=== PATIENT | male | born 1955 | race Caucasian/White ===

== ENCOUNTER 2021-02-05 08:21 | Emergency (ER) | payer OTHER, MEDICARE, MEDICAID, SELFPAY ==
--- NOTE | ~2021-02-05 | XR_ITS ---
EXAMINATION: RIGHT WRIST. CLINICAL INFORMATION: Distal radial fracture. Postreduction. COMPARISON: None TECHNIQUE: 6 views FINDINGS: Slightly impacted and dorsally angulated distal radial fracture has been stabilized with right wrist in a hard cast. XR/XR hand wrist RT IMPRESSION: Stabilized distal radial fracture in a hard cast.
--- NOTE | ~2021-02-05 | XR_ITS ---
EXAMINATION: XR WRIST, RIGHT CLINICAL INFORMATION: Fall. Pain. COMPARISON: None TECHNIQUE: 4 views of the right wrist. FINDINGS: There is an acute comminuted transverse impacted fracture of the left distal radius. There is slight dorsal angulation seen on the lateral view. There is a vertical component that appears intra-articular with the radiocarpal joint. There is an old fracture of the base of the third metacarpal bone. No other fracture is seen. Joint spaces are otherwise normal. There is soft tissue swelling. XR/XR wrist RT 2V IMPRESSION: Right distal radius fracture.
--- NOTE | ~2021-02-05 | XR_ITS ---
EXAMINATION: XR CHEST CLINICAL INFORMATION: Medical clearance. COMPARISON: Chest 09/06/2017 TECHNIQUE: 2 views of the chest were obtained. FINDINGS: No significant abnormality is noted involving the heart, lungs, mediastinum, bony thorax or soft tissues. XR/XR chest 2V IMPRESSION: Unremarkable chest examination. No change from 08/25/2017
[2021-02-05 08:47] VITALS: BP 167/71; PULSE 82; RESP 16; TEMP 36.4; O2SAT 97; BMI 34.1
[2021-02-05] MEDS: Acetaminophen 325 MG TABLET 975 MG PO (10:09)
[2021-02-05] MEDS: oxyCODONE HCl Immed Release 5 MG TABLET PO (10:10)
--- NOTE | 2021-02-05 10:18 | ED.UPPEXIN ---
HPI - Extremity Injury (Upper) General Chief Complaint: Extremity Injury, Upper Stated Complaint: arm injury Time Seen by Provider: 02/05/21 09:08 Source: patient Mode of arrival: ambulatory Limitations: no limitations History of Present Illness HPI narrative: 65-year-old male with a past medical history of depression, fibromyalgia and COPD presenting to the ED with complaints of right wrist pain/swelling/decreased range of motion after he reports he fell approximately on Monday while he was outside lost his balance landing on his right hand/wrist and since then has been having pain. Denies head injury loss of consciousness or being on any blood thinners. Denies any other injuries complaints or concerns at this time. Denies any symptoms prior to the fall. complaint: injury to: right and wrist Onset (ago): day(s) (Five days ago) Other injuries: none Place: outdoors Severity: severe Severity scale (1-10): >10 Relieving factors: immobilization Exacerbating factors: movement of extremity Context: fall Associated symptoms: denies other symptoms Treatments prior to arrival: NSAIDS and other (Shoulder sling) Related Data Previous Rx's Medication Instructions Recorded acetaminophen [Tylenol Extra 1,000 mg PO QID PRN #14 tab 02/05/21 Strength] ibuprofen 800 mg PO Q8H PRN #14 tab 02/05/21 oxycodone 5 mg PO BID PRN #10 tab 02/05/21 Allergies Allergy/AdvReac Type Severity Reaction Status Date / Time No Known Allergies Allergy Unverified 06/04/20 14:36 Review of Systems Review of Systems: Constitutional : No changes in activity, No lethargy, No recent prior head injury, No agitation, No increased fussiness ENT/Mouth : No Ear Pain, No Nasal discharge/drainage Eyes: No Eye Pain, No Swelling, No Redness, No Foreign Body, No Vision Changes Cardiovascular : No Chest Pain, No SOB Respiratory : No Cough Gastrointestinal : No Nausea, No Vomiting, No abdominal Pain Genitourinary : No Dysuria, No Urinary Frequency, No Urinary Incontinence, No Urgency, No Flank Pain Musculoskeletal : + joint pain to left wrist, No neck stiffness, No back pain/injury Skin : No lacerations Neuro : No unsteady gait, No Paresthesias, No Loss of Consciousness, No altered mental status, No Headache Yes all other systems are reviewed and are negative PMFSH Past Medical History Attestation statement: The following information was validated with the patient. Medical History Fibromyalgia Social History Social History Advance Directives: No Advance Directives Information Provided: No Physical Exam Vital Signs: Vital Signs: Last Vital Signs Temp 97.5 F 02/05/21 08:47 Pulse 82 02/05/21 08:47 Resp 16 02/05/21 08:47 BP 167/71 H 02/05/21 08:47 Pulse Ox 97 02/05/21 08:47 Body Mass Index 34.1 vital signs have been reviewed as normal and appeared to be correct. Blood pressure 167/71. Heart rate normal. Respiration rate normal. Temperature normal. Oxygen saturation normal. Appearance: Alert. Oriented X3. No acute distress. Head: Normal external exam. Normocephalic. Atraumatic. Eyes: PERRLA. EOMI. Conjunctiva and sclera normal. Eyelids normal. ENT: Pharynx normal. Uvula midline. Moist mucous membranes. Neck: Normal inspection. Neck supple. FROM. No adenopathy. Thyroid Normal. No meningeal signs. No neck mass noted. CVS: Normal heart rate and rhythm. Heart sound normal. Pulses normal throughout. No murmurs/rales/gallops. Respiratory: No respiratory distress. Painless inspiration. Breath sounds normal. No wheezes/rales/rhonchi noted. Chest nontender. No accessory muscle usage noted or decreased air movement noted. Back: No CVA tenderness. Full range of motion noted. No rashes/lesion/induration/fluctuance or signs of infection noted. Skin: Skin warm and dry. Normal skin color. Normal skin turgor. No rashes/lesions/lacerations noted. Extremities: To right wrist patient has moderate tender to palpation to distal radius with obvious deformity with soft tissue swelling and ecchymosis noted. With limited range of motion. No laxity is noted. Otherwise all other Extremities exhibit normal range of motion and nontender. Neuro: Oriented X 3. No motor deficit. No sensory deficit. Reflexes normal. Normal steady gait. No focal neuro deficits noted. Vascular: + radial pulses. Normal cap refill. No cyanosis noted to upper extremity nails and lower extremity toes nails. Course Course Course Narrative: 13pm - Dr. Reddy came down and assisted with the reduction and repeat imaging reveals improvement. Therefore splint was placed. Will DC home with symptomatic treatment instructions to follow up by Monday with Orthopedics/Dr. Reddy. Patient understands agrees with this plan. Procedures Orthopedic Joint Reduction Joint #1: Time Out Performed: Yes Side: right Joint Reduction Location: wrist Analgesia: hematoma block Local Anesthesia: lidocaine 1% and with epi Amount of anesthesic used (mL): 10 Technique used: traction/counter-traction and direct manipulation Post-reduction neuro exam: intact Post-reduction vascular: intact Post Reduction X-Ray Obtained: Yes Post Reduction X-Ray Results: reduced Splint Applied: Yes Patient Tolerated Procedure: well and no complications Orthopedic Splinting/Casting Injury #1: Side: right Upper Extremity Injury Location: wrist Upper Extremity Immobilizer: sugar tong splint MDM - Extremity Injury (Upper) MDM Narrative Medical decision making narrative: 65-year-old male with a past medical history of depression, fibromyalgia and COPD presenting to the ED with complaints of right wrist pain/swelling/decreased range of motion after he reports he fell approximately on Monday while he was outside lost his balance landing on his right hand/wrist and since then has been having pain. - Plan: Xray, basic labs/chest x-ray. Provide 975 mg of Tylenol and 5 mg of oxycodone then consult with Orthopedics/Dr. Encarnacion for further recommendations. Patient understands agrees with this plan. Medical Records Attestation: I reviewed the patient's medical records. Lab Data Result diagrams: 02/05/21 11:41 02/05/21 11:41 Labs: Lab Results 02/05/21 02/05/21 02/05/21 Range/Units 11:41 11:41 11:41 WBC 8.6 (4.8-10.8) X10*3/uL RBC 3.78 L (4.60-5.80) X10*6/uL Hgb 11.7 L (14.0-18.0) g/dl Hct 36.3 L (42-52) % MCV 96.0 (80-98) fL MCH 31.0 (27.0-33.0) pg MCHC 32.2 (31.0-36.0) g/dl RDW 12.6 (11.0-16.0) % Plt Count 205 (160-400) X10*3/uL MPV 8.8 L (9.4-12.4) fL Immature Gran % (Auto) 0.1 (0.0-0.4) % Neut % (Auto) 68.5 (45-73) % Lymph % (Auto) 19.5 L (20-40) % [place] % (Auto) 7.6 (2-11) % Eos % (Auto) 4.0 (0-4) % Baso % (Auto) 0.3 (0-2) % Lymph # (Auto) 1.7 (1.2-4.9) X10*3/uL [place] # (Auto) 0.7 (0.1-1.2) X10*3/uL Eos # (Auto) 0.3 (0.0-0.4) X10*3/uL Baso # (Auto) 0.0 (0.0-0.2) X10*3/uL Abs Immat Gran (auto) 0.01 (0.00-0.03) X10*3/uL Absolute Neuts (auto) 5.9 (2.0-8.3) X10*3/uL Absolute Nucleated RBC 0.000 (0.0-0.012) X10*3/uL Nucleated RBC % (auto) 0.0 (0.0-0.2) /100WBC Hold Purple Top SEE NOTE PT 13.2 H (10.8-13.0) SEC INR 1.1 (0.9-1.1) Sodium (135-145) mmol/L Potassium (3.3-5.1) mmol/L Chloride (96-108) mmol/L Carbon Dioxide (22-29) mmol/L Anion Gap (12-20) BUN (9-16) mg/dL Creatinine (0.5-1.4) mg/dL Estim Creat Clear Calc Estimated GFR Random Glucose (60-115) mg/dL Calcium (8.4-10.2) mg/dL Magnesium (1.6-2.6) mg/dL Total Bilirubin (0.0-1.0) mg/dL AST (5-37) U/L ALT (0-40) U/L Alkaline Phosphatase (39-117) U/L Total Protein (6.5-8.0) g/dL Albumin (3.5-5.0) g/dL COVID-19 ([facility]) (Negative) COVID-19 Clin Com 02/05/21 02/05/21 Range/Units 11:41 11:41 WBC (4.8-10.8) X10*3/uL RBC (4.60-5.80) X10*6/uL Hgb (14.0-18.0) g/dl Hct (42-52) % MCV (80-98) fL MCH (27.0-33.0) pg MCHC (31.0-36.0) g/dl RDW (11.0-16.0) % Plt Count (160-400) X10*3/uL MPV (9.4-12.4) fL Immature Gran % (Auto) (0.0-0.4) % Neut % (Auto) (45-73) % Lymph % (Auto) (20-40) % [place] % (Auto) (2-11) % Eos % (Auto) (0-4) % Baso % (Auto) (0-2) % Lymph # (Auto) (1.2-4.9) X10*3/uL [place] # (Auto) (0.1-1.2) X10*3/uL Eos # (Auto) (0.0-0.4) X10*3/uL Baso # (Auto) (0.0-0.2) X10*3/uL Abs Immat Gran (auto) (0.00-0.03) X10*3/uL Absolute Neuts (auto) (2.0-8.3) X10*3/uL Absolute Nucleated RBC (0.0-0.012) X10*3/uL Nucleated RBC % (auto) (0.0-0.2) /100WBC Hold Purple Top PT (10.8-13.0) SEC INR (0.9-1.1) Sodium 141 (135-145) mmol/L Potassium 4.1 (3.3-5.1) mmol/L Chloride 105 (96-108) mmol/L Carbon Dioxide 30 H (22-29) mmol/L Anion Gap 10 L (12-20) BUN 14 (9-16) mg/dL Creatinine 0.91 (0.5-1.4) mg/dL Estim Creat Clear Calc 82.5 Estimated GFR > 60 Random Glucose 107 (60-115) mg/dL Calcium 9.1 (8.4-10.2) mg/dL Magnesium 2.1 (1.6-2.6) mg/dL Total Bilirubin 0.4 (0.0-1.0) mg/dL AST 16 (5-37) U/L ALT 13 (0-40) U/L Alkaline Phosphatase 45 (39-117) U/L Total Protein 6.2 L (6.5-8.0) g/dL Albumin 3.7 (3.5-5.0) g/dL COVID-19 ([facility]) Negative (Negative) COVID-19 Clin Com See Note Imaging Data Right wrist x-ray: Attestation: I personally reviewed and interpreted this imaging study as follows: Radiologist's impression: FINDINGS: There is an acute comminuted transverse impacted fracture of the left distal radius. There is slight dorsal angulation seen on the lateral view. There is a vertical component that appears intra-articular with the radiocarpal joint. There is an old fracture of the base of the third metacarpal bone. No other fracture is seen. Joint spaces are otherwise normal. There is soft tissue swelling. XR/XR wrist RT 2V IMPRESSION: Right distal radius fracture. Right wrist x-ray status post reduction: Attestation: I personally reviewed and interpreted this imaging study as follows: Radiologist's impression: FINDINGS: Slightly impacted and dorsally angulated distal radial fracture has been stabilized with right wrist in a hard cast. XR/XR hand wrist RT IMPRESSION: Stabilized distal radial fracture in a hard cast. ECG Data Attestation: I personally reviewed and interpreted this ECG as follows: ECG interpretation date: 02/05/21 ECG interpretation time: 10:15 Critical Care Time Critical Care Time Critical Care Time: Yes Total Critical Care Time: 60 Attestation: I personally attest to this time spent taking care of the patient Discharge Plan Discharge Clinical Impression: Fall, Distal radius fracture, right Patient Disposition: Home, Self-Care Instructions: Wrist Fracture in Adults (ED) Prescriptions: New acetaminophen [Tylenol Extra Strength] 500 mg tablet 1,000 mg PO QID PRN (Reason: fever or pain) Qty: 14 RF: 0 oxycodone 5 mg tablet 5 mg PO BID PRN (Reason: pain) Qty: 10 RF: 0 ibuprofen 800 mg tablet 800 mg PO Q8H PRN (Reason: pain) Qty: 14 RF: 0 Referrals: Williams Reddy MD [Physician] - 02/05/21 (Call today to make a follow-up appointment by Monday per Dr. Reddy) Print Language: Hebrew
--- NOTE | 2021-02-05 10:31 | ECG_ITS ---
Test Reason : MED CLEARANCE Blood Pressure : / mmHG Vent. Rate : 077 BPM Atrial Rate : 077 BPM P-R Int : 148 ms QRS Dur : 090 ms QT Int : 416 ms P-R-T Axes : 042 074 037 degrees QTc Int : 470 ms Normal sinus rhythm Normal ECG When compared with ECG of 18-MAR-2010 09:06, No significant change was found Referred By: Thuy Crawford Electronically Signed By:RAMILA DAY MD
[2021-02-05 11:46] LABS: MANUAL DIFF FLAG NO
[2021-02-05 11:47] LABS: Basophils Percent Auto 0.3 % (0-2); Eosinophils Absolute Auto 0.3 X10*3/uL (0.0-0.4); Hematocrit 36.3 % (42-52); Hemoglobin 11.7 g/dl (14.0-18.0); Imm Gran Abs Auto 0.01 X10*3/uL (0.00-0.03); Imm Gran Pct Auto 0.1 % (0.0-0.4); Lymphocytes Absolute Auto 1.7 X10*3/uL (1.2-4.9); Lymphocytes Percent Auto 19.5 % (20-40); Mean Corpuscular HGB Conc 32.2 g/dl (31.0-36.0); Mean Platelet Volume 8.8 fL (9.4-12.4); Monocytes Absolute Auto 0.7 X10*3/uL (0.1-1.2); Monocytes Percent Auto 7.6 % (2-11); Neutrophils Absolute Auto 5.9 X10*3/uL (2.0-8.3); Neutrophils Percent Auto 68.5 % (45-73); Platelet Count 205 X10*3/uL (160-400); Red Blood Count 3.78 X10*6/uL (4.60-5.80); Red Cell Distribution Width 12.6 % (11.0-16.0); White Blood Count 8.6 X10*3/uL (4.8-10.8)
[2021-02-05 11:52] LABS: INTERNATIONAL NORM RATIO 1.1 (0.9-1.1); Prothrombin Time 13.2 SEC (10.8-13.0)
[2021-02-05 12:08] LABS: COVID-19 Test Negative (Negative)
[2021-02-05 12:13] LABS: Alanine Aminotransferase 13 U/L (0-40); Albumin Level 3.7 g/dL (3.5-5.0); Alkaline Phosphatase 45 U/L (39-117); Anion Gap 10 (12-20); Aspartate Amino Transferase 16 U/L (5-37); Bilirubin Total 0.4 mg/dL (0.0-1.0); Blood Urea Nitrogen 14 mg/dL (9-16); Calcium 9.1 mg/dL (8.4-10.2); Carbon Dioxide 30 mmol/L (22-29); Chloride 105 mmol/L (96-108); Creatinine Clr Calc Pharmacy 82.5; Estimated Glomerular Filt Rate > 60; Glucose Random 107 mg/dL (60-115); Magnesium 2.1 mg/dL (1.6-2.6); Potassium 4.1 mmol/L (3.3-5.1); Sodium 141 mmol/L (135-145); Total Protein 6.2 g/dL (6.5-8.0)
== END 2021-02-05 13:18 | disposition home or self-care (01) ==
PROVIDERS: Physician Assistant Medical; Emergency Provider Internal Medicine; PCP Internal Medicine
DX: S52.501A Unspecified fracture of the lower end of right radius, initial encounter for closed fracture (principal); M25.531 Pain in right wrist; W01.0XXA Fall on same level from slipping, tripping and stumbling without subsequent striking against object, initial encounter; Y93.9 Activity, unspecified; Y92.410 Unspecified street and highway as the place of occurrence of the external cause; Y99.9 Unspecified external cause status; Z20.822 Contact with and (suspected) exposure to COVID-19
CPT/HCPCS: 25605; 29125; 36415; 71046; 73100; 73110; 73130; 80053; 83735; 85025; 85610; 87635; 93005; 99283; 99284

== ENCOUNTER 2021-02-16 08:08 | Outpatient (REF) | payer MEDICARE, MEDICAID, SELFPAY | END 2021-02-16 08:09 | disposition home or self-care (01) | LOC: HO.HOSX 08:08 | PROVIDERS: Visit Provider Physician Assistant | DX: Z13.89 Encounter for screening for other disorder (principal) ==

== ENCOUNTER 2021-02-22 08:44 | Outpatient (REF) | payer MEDICARE, MEDICAID, SELFPAY ==
--- NOTE | ~2021-02-22 | XR_ITS ---
EXAMINATION: XR HAND AND WRIST, RIGHT CLINICAL INFORMATION: Distal radial fracture. Follow-up. COMPARISON: Radiographs right hand and wrist 02/05/2021. TECHNIQUE: The right hand and wrist are imaged together in 3 large [id number] images for a total of 3 views. FINDINGS: There is distal radial fracture without significant change in alignment from prior exam of 02/05/2021. The distal fracture fragment is slightly displaced dorsally with dorsal angulation and impaction. There is slight positive ulnar variance. The distal ulnar and the carpal bones appear intact. No destructive process. XR/XR hand wrist RT IMPRESSION: Angulated impacted fracture distal radius without significant change in alignment from prior study of 02/05/2021.
== END 2021-02-22 08:45 | disposition home or self-care (01) ==
LOC: HO.HOSX 08:44
PROVIDERS: Visit Provider Physician Assistant
DX: M25.531 Pain in right wrist (principal); S52.501A Unspecified fracture of the lower end of right radius, initial encounter for closed fracture
CPT/HCPCS: 73110; 73130; 99202

== ENCOUNTER 2021-02-24 11:46 | Day surgery (SDC) | payer MEDICARE, MEDICAID, SELFPAY ==
--- NOTE | 2021-02-23 07:46 | P.CONAN_ITS ---
Documented by User: Migdalia Barrow 02/23/21 07:47 HPI - Anesthesia Eval Consult details Narrative: 65yo M for Right Radius Distal Fracture ORIF PMFSH Active Problems Active Problems: All Active Problems (Updated 02/22/21 @ 11:35 by Penelope Smart PA-C) Distal radius fracture, right (Acute) Wrist pain (Acute) Depression (Acute) COPD (chronic obstructive pulmonary disease) (Acute) Fibromyalgia (Acute) Past Medical History Medical History COPD (chronic obstructive pulmonary disease) Depression Fibromyalgia Surgical History Surgical History H/O right wrist surgery Social History Social History Patient Tobacco Use Status: Current everyday Tobacco user Tobacco use type: Smokeless Tobacco Smoked in Last 30 Days: Yes Use of substances other than those prescribed or required for medical reasons: No Are you DNR?: No Advance Directives: No Advance Directives Information Provided: Yes Recently lost weight without trying: No Current occupational status: [employer]) Allergies Allergy/AdvReac Type Severity Reaction Status Date / Time No Known Allergies Allergy Unverified 06/04/20 14:36 Home Medications Medication Instructions Recorded Confirmed Last Taken Type fluoxetine 40 mg capsule 40 mg PO DAILY 02/22/21 Unknown History methadone 10 mg/5 mL oral solution 10 mg PO DAILY 02/22/21 02/24/21 08:00 History quetiapine 100 mg tablet 100 mg PO DAILY 02/22/21 Unknown History Exam Exam Date and Time: February 23, 2021 0746 Narrative Narrative: EKG 01/2021 Vent. Rate : 077 BPM Atrial Rate : 077 BPM P-R Int : 148 ms QRS Dur : 090 ms QT Int : 416 ms P-R-T Axes : 042 074 037 degrees QTc Int : 470 ms Normal sinus rhythm Normal ECG When compared with ECG of 18-MAR-2010 09:06, No significant change was found Assessment and Plan Assessment Anesthesia Assessment: Chart Reviewed Documented by User: Shania Owens 02/24/21 12:08 PMFSH Past Medical History Medical History COPD (chronic obstructive pulmonary disease) Depression Fibromyalgia Surgical History Surgical History H/O right wrist surgery Social History Social History Patient Tobacco Use Status: Current everyday Tobacco user Tobacco use type: Smokeless Tobacco Smoked in Last 30 Days: Yes Use of substances other than those prescribed or required for medical reasons: No Are you DNR?: No Advance Directives: No Advance Directives Information Provided: Yes Recently lost weight without trying: No Current occupational status: [employer]) Allergies Allergy/AdvReac Type Severity Reaction Status Date / Time No Known Allergies Allergy Unverified 06/04/20 14:36 Home Medications Medication Instructions Recorded Confirmed Last Taken Type fluoxetine 40 mg capsule 40 mg PO DAILY 02/22/21 Unknown History methadone 10 mg/5 mL oral solution 10 mg PO DAILY 02/22/21 02/24/21 08:00 History quetiapine 100 mg tablet 100 mg PO DAILY 02/22/21 Unknown History Exam Airway Mallampati Class: II TM Dist: >3cm Neck ROM: Full Assessment and Plan Assessment Anesthesia Assessment: Anesthesia Plan Discussed, Smoking Cess. Discussed and Chart Reviewed Final Anesthetic Review NPO: Yes ASA Class: III Final Preanesthetic Review: No Changes in Pt Med Stat, Meds/Allgs Chart Reviewed, Consent Obtained/Reviewed and Anes Risks/Benef Reviewed Patient Risk: Intermediate Procedure Risk: Low Assessment/Block/Sedation in SS: Assess/Block/Sedation-SS Anesthetic Plan Anesthetic Plan: GA and Regional Block Disposition: Standard PACU
[2021-02-24] VITALS (8 sets, daily range): BP systolic 126–172; BP diastolic 72–94; PULSE 71–90; RESP 16; TEMP 36.1–36.7; O2SAT 91–98; BMI 34.1; BMI 36.6
--- NOTE | ~2021-02-24 | FL_ITS ---
EXAMINATION: XR FLUOROSCOPY WITH IMAGES CLINICAL INFORMATION: Right wrist fracture COMPARISON: Right wrist 02/22/2021 TECHNIQUE: Fluoroscopy performed by Dr. Williams Reddy. Fluoroscopy time: 0.6 minutes DAP: 0.0184 mGycm2 Images: 2 FINDINGS: There is volar metallic plate and screws stabilizing distal radial fracture in alignment. No other fractures seen. Rest of the right wrist is unremarkable. FL/FL guidance in OR IMPRESSION: Normal alignment of distal radial fracture status post stabilization with volar metallic plate and screws.
--- NOTE | 2021-02-24 12:01 | MHC.SHP ---
Pre-Procedural Eval Section A The patient is an INPATIENT: No Changes since office visit: Yes Patient answered all questions; No Cold of Flu in the past 2 weeks, No New Medical Problems and No Changes in Medication The History & Physical has been completed within 30 days and I have reviewed it.: Yes Section B Chief Complaint: fx of the lower right radius Allergies: Allergies Allergy/AdvReac Type Severity Reaction Status Date / Time No Known Allergies Allergy Unverified 06/04/20 14:36 Plan I have reviewed the history and physical and performed a pertinent physical examination on my patient. No changes have occurred unless specified.
[2021-02-24] MEDS: Lactated Ringers 1,000 ML 100 ML IVCONT (12:17)
--- NOTE | 2021-02-24 13:31 | P.BOP_ITS ---
Brief Operative Note Date of Service: 02/24/21 Pre-op diagnosis: right distal radius fracture Procedure: ORIF right distal radius Implants: [place] Surgeon: Williams Reddy MD Anesthesia: GETA and regional Was an Felting Machine Operator Helper used for this Procedure?: Yes Felting Machine Operator Helper: Penelope Smart Estimated blood loss (mL): 10 Tourniquet time (min): 40 IV fluids (mL): 1,000 Pathology: none sent Condition: stable Disposition: PACU
--- NOTE | 2021-03-04 09:35 | P.OP_ITS ---
Operative Note Operative Note Date of Service: 02/24/21 Narrative: Pre-op diagnosis: right distal radius fracture Procedure: ORIF right distal radius Implants: [place] Surgeon: Williams Reddy MD Anesthesia: GETA and regional Was an Emergency Planning And Response Manager used for this Procedure?: Yes Emergency Planning And Response Manager: Penelope Smart Estimated blood loss (mL): 10 Tourniquet time (min): 40 IV fluids (mL): 1,000 Pathology: none sent Condition: stable Disposition: PACU The patient was brought to the operating room and placed supine on the hand table. The limb was prepped and draped in standard fashion and a time-out was called to identify proper site procedure proper surgeon. IV antibiotics per weight were administered. I began by exsanguinating the limb and insufflating the tourniquet to 250 mm Hg. I then made a standard incision over the FCR. FCR sheath was incised and the FCR was retracted ulnar. A ric incision was made in the FPL sheath and this was opened up proximally and distally. The FPL was swept aside revealing the pronator quadratus which waselevated off the distal radius revealing the displaced distal radius fracture. I used a [place] and rongeur to remove the callous and debris and reduce the fracture. A 0.54 K-wire was placed through the radial styloid into the radial shaft to provisionally maintain the reduction. A [place] distal radius plate was selected and placed on the distal radius. Fluoroscopic images were taken to confirm appropriate alignment on the AP and lateral projection. Once I was happy with this the radial styloid screw and the distal row were placed using standard AO technique. I then filled the proximal row with locking screws again confirming fracture reduction and hardware position using biplanar fluoroscopy. Once this was done I placed 2 proximal nonlocking screws through the cortical shaft reducing the plate to the bone and reapproximating the anatomic tilt of the distal radius on the lateral projection. Again once I was satisfied with the position of the plate and the fracture alignment all instrumentation was removed. The DRUJ was assessed and found to be stable and a layered closure was performed with absorbable suture and skin glue. Sterile dressings were applied. Patient was placed into a well- padded volar splint. Patient was extubated brought to recovery room in stable condition there were no known complications.
== END 2021-02-24 15:24 | disposition home or self-care (01) ==
LOC: HO.SSS 11:47
PROVIDERS: PCP Internal Medicine; Visit Provider Orthopaedic Surgery
PROC: (CPT 25607; principal; 2021-02-24 12:20)
DX: S52.501A Unspecified fracture of the lower end of right radius, initial encounter for closed fracture (principal); W18.30XA Fall on same level, unspecified, initial encounter; Y93.9 Activity, unspecified; Y92.89 Other specified places as the place of occurrence of the external cause; Y99.9 Unspecified external cause status
CPT/HCPCS: 25607; C1713; J0690; J1100; J2250; J2405; J3010

== ENCOUNTER 2021-03-08 07:26 | Outpatient (REF) | payer MEDICARE, MEDICAID, SELFPAY ==
--- NOTE | ~2021-03-08 | XR_ITS ---
EXAMINATION: XR WRIST, RIGHT CLINICAL INFORMATION: Fracture COMPARISON: Previous x-rays most recent intraoperative fluoroscopy images 02/24/2021 TECHNIQUE: PA, lateral, and oblique views of the right wrist. FINDINGS: There is a plate and screws transfixing the right comminuted intra-articular distal radius fracture. Orthopedic hardware appears unchanged. Bone alignment appears unchanged. There is diffuse soft tissue swelling. XR/XR wrist RT min 3V IMPRESSION: ORIF of right distal radius fracture.
== END 2021-03-08 07:27 | disposition home or self-care (01) ==
LOC: HO.HOSX 07:26
PROVIDERS: Visit Provider Physician Assistant
DX: S52.501A Unspecified fracture of the lower end of right radius, initial encounter for closed fracture (principal); F17.200 Nicotine dependence, unspecified, uncomplicated; X58.XXXA Exposure to other specified factors, initial encounter; Y93.9 Activity, unspecified; Y92.9 Unspecified place or not applicable; Y99.9 Unspecified external cause status
CPT/HCPCS: 73110; 99212

== ENCOUNTER 2021-04-14 11:28 | Outpatient (RCR) | payer MEDICARE, MEDICAID, SELFPAY ==
--- NOTE | 2021-04-14 13:14 | MHC.OT.OEV ---
[address] [phone] F: [phone] Occupational Therapy Evaluation Diagnosis: R DISTAL RADIUS FRACTURE Date of Onset: 02/01/21 Date of Surgery: 02/24/21 Attending Provider: Penelope Smart Prescribed Treatment: EVAL AND TREAT History of Current Condition: FELL BACKWARDS WHILE ATTEMPTING TO GET UP FROM SITTING ON A CURB. S/P ORIF WITH DR RIVERO 02/24/21 XRAY PERFORMED IN [facility] 02/05/21 acute comminuted transverse impacted fracture of the left distal radius. There is slight dorsal angulation seen on the lateral view. There is a vertical component that appears intra-articular with the radiocarpal joint. There is an old fracture of the base of the third metacarpal bone. 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 HOBBIES: PLAY MUSIC GUITAR AND PIANO, FISHING Living Situation, Family and/or Social Support: LIVES WITH SPOUSE Current Level of Function and Occupation Self Care, Employment, Leisure: DIFFICULTIES WITH PULLING UP PANTS, PULLING ON SHIRT, GRABBING ITEMS, HOLDING BAGS AND PLAYING GUITAR Sleep: OCCASIONAL INTERRUPTIONS DUE TO PAIN; WEARING SPLINT AT NIGHT Driving: NOT CURRENTLY DRIVING Pain Assessment Pain Score: 3-8/10 Pain Scale Used: Numeric (0 - 10) Pain Location and Description: 3/10 AT REST 8/10 WITH USE PAIN GREATEST IN R THUMB AND RADIAL/ULNAR WRIST Aggravating Factors: REACHING AND GRABBING, MOVING THUMB Alleviating Factors: IBUPROFEN, MASSAGE, HEAT Skin and Soft Tissue Assessment Skin and Soft Tissue: Atrophy Swelling Scar Tissue Comments: CIRCUMFERENCE OF WRIST, DISTAL TO U.S. : RIGHT 19.9 CM, LEFT 19.2 CM MILD ATROPHY TO R THENAR EMINENCE SCAR TO R VOLAR WRIST Nerve assessment Ulnar Nerve: Median Nerve: Radial Nerve: Comments: Sensory Assessment Temperature: Light Touch: WFL Proprioception: Vibration: Comments: DENIES PARASTHESIA Edema Assessment Upper Extremity: Right Impaired Lower Extremity: Comments: SEE ABOVE Dexterity Assessment Dexterity: WFL Comments: FUNCTIONAL DEXTERITY TEST: RIGHT 27 SECONDS, LEFT 25 SECONDS Special Tests Comments: AROM(PROM) Strength Elbow Flexion: Extension: Pronation: R 85 / L 90 Supination: R 55 / L 62 Comments: Flexion: Extension: Pronation: Supination: Comments: Wrist Flexion: R 43/ L 55 Extension: R 36 / L 60 Ulnar Deviation: R 10 / L 10 Radial Deviation: R 25 / L 40 Comments: Flexion: Extension: Ulnar Deviation: Radial Deviation: Comments: Thumb Thumb CMC Flexion: Thumb MCP Flexion: Thumb IP Flexion: Radial Abduction: Palmar Abduction: [place] (Kapandji 0-10): 7 Comments: Digits Index MCP: PIP: DIP: Long MCP: PIP: DIP: Ring MCP: PIP: DIP: Small MCP: PIP: DIP: Comments: Gross Grasp: R 25, L 60 Lateral Pinch: R 12, L 15 Two-Point Pinch: R 3, L 9 Three-Jaw Darshan: R 4, L 15 Comments: PAIN WITH THREE JAW DARSHAN PINCH Patient Education Primary Language: Mongolian 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 Patient demonstrates Patient verbalizes Barriers to Learning: None Readiness for Learning: Accepting Who was educated? Patient Comments: Plan of Care Assessment: AMY IS 7 WEEKS POST OP ORIF R WRIST SECONDARY TO DISTAL RADIUS FRACTURE TO DOMINANT RUE. HE STATES THAT HE HAS PAIN IN HIS RIGHT THUMB WITH GRABBING AND HOLDING ITEMS, INCLUDING PULLING UP HIS PANTS. HE REPORTS MOSTLY WEANING SELF FROM PRE-ALEAH SPLINT. HE STATES A 55% LIMITATION PER THE QUICK DASH ASSESSMENT. HE WOULD CONTINUE TO BENEFIT FROM SKILLED OT TO ACHIEVE OPTIMAL FUNCTIONAL LEVEL AND ADDRESS AREAS MENTIONED ABOVE. STG Duration: 2 WEEKS Short Term Goals: IND HEP IND SCAR MOBILIZATION IND JOINT PROTECTION AND ACTIVITY MODIFICATION REPORT <2/10 PAIN AT REST AND WITH LIGHT IADLs KAPANDJI TO 9 LTG Duration: 5 WEEKS Snf Goals: R CLINICAL RESEARCH SCIENTIST >50 POUNDS QUICK DASH <40% R WRIST FLEX AND EXT 55/50 3 PT PINCH >8 POUNDS REPORT <5/10 PAIN WITH MODERATE IADLs INCLUDING LIFTING >15 POUNDS Frequency and Duration: The patient will be seen 2X/WEEK FOR 5 WEEKS Treatment Plan: Therapeutic Exercise Therapeutic Activity Home Exercise Program Splinting Neuro Re-ed Patient Education Desensitization/Sensory Re-ed Edema Control ADL Training Ultrasound NMES Iontophoresis Paraffin Fluidotherapy MHP Cold Packs Joint Mobilization Soft Tissue Mobilization Kinesiotaping Other (see comments) Electronically Signed By: NASIM ROOT OTR/L Reviewed/agree with student documentation: N/A Therapist: Please sign and return to therapist, Thank you for your referral.
--- NOTE | 2021-05-12 08:09 | MHC.OT.DC ---
[address] [phone] F: [phone] Occupational Therapy Discharge Note Provider: Penelope Smart Diagnosis: L DISTAL RADIUS FRACTURE Date of Surgery: 02/24/21 Date of Evaluation: 04/14/21 Date of Discharge: 05/12/21 Treatments to Date: 1 Cancellations to Date: 1 Discharge Status: Patient Elected to Stop Recommend MD Follow-up Discharge Summary: MR DIAS WAS SEEN FOR AN OCCUPATIONAL THERAPY EVAL. HE EXPRESSED DIFFICULTIES WITH TRANSPORTATION AT DAY OF EVAL, ALTHOUGH HE WAS AGREEABLE TO TRY 2X/WEEK TO OPTIMIZE GAINS. UPON CALLING PATIENT, HE HAS ELECTED TO DISCONTINUE OT SERVICES AT THIS TIME. Electronically Signed By: NASIM ROOT OTR/Mely Reviewed/agree with student documentation: N/A Therapist: Please Sign and return to therapist, thank you for your referral.
== END 2021-05-12 08:00 | disposition home or self-care (01) ==
LOC: HO.OT 11:28
PROVIDERS: PCP Internal Medicine; Visit Provider Physician Assistant
DX: S52.501D Unspecified fracture of the lower end of right radius, subsequent encounter for closed fracture with routine healing (principal)
CPT/HCPCS: 97110; 97166

== ENCOUNTER 2024-10-30 13:15 | Inpatient (IN) | payer MEDICARE, MEDICAID, SELFPAY ==
[2024-10-30] VITALS (9 sets, daily range): BP systolic 154–200; BP diastolic 78–103; PULSE 69–95; RESP 16–20; TEMP 36.6–36.9; O2SAT 94–99; BMI 42.5; BMI 43.2
--- NOTE | ~2024-10-30 | CT_ITS ---
Please refer to combined report with the CT angiogram abdomen and pelvis performed concurrently. Electronically signed by: Marco A Lazar MD 10/31/2024 08:16 AM [facility]
--- NOTE | ~2024-10-30 | US_ITS ---
EXAMINATION: US TRIPLEX LOWER EXTREMITY, BILATERAL CLINICAL INFORMATION: Pain and swelling. COMPARISON: None available. TECHNIQUE: Color-flow triplex imaging with spectral analysis and compression Doppler were performed on the bilateral lower extremities. FINDINGS: RIGHT LEG: Respiratory variation, normal compression and augmented flow are noted throughout the bilateral lower extremities. The visualized common femoral vein, superficial femoral vein, profunda femoral vein, popliteal vein and midcalf peroneal and posterior tibial venous segments show no evidence of deep venous thrombosis bilaterally. There is no Bautista's cyst. LEFT LEG There is noncompressible thrombus present in the left common femoral vein, superficial femoral vein, extending into the popliteal vein and probably in the calf veins as well, which are not visualized. There is no Bautista's cyst. US/US venous duplex LE BI IMPRESSION: 1. Positive DVT LEFT leg. (Extensive) 2. No evidence of DVT RIGHT leg. Electronically signed by: Marco A Lazar MD 10/30/2024 03:56 PM [facility]
--- NOTE | ~2024-10-30 | CT_ITS ---
CLINICAL HISTORY: extensive clots leg swelling CT angiogram of the chest, abdomen and pelvis. Coronal MIPS were obtained. No comparison. Findings: There is mild motion artifact. No PE is identified. No aortic dissection or aneurysm is seen. There is prominent coronary artery calcification. There are several enlarged mediastinal and right hilar lymph nodes. The largest measures 3.4 x 2.7 cm image 137. No pleural or pericardial effusion. There are changes of emphysema. Peripherally in the right upper lobe there is an irregular parenchymal opacity measuring a maximum of proximally 3.3 cm. This is indeterminate. There are mild scattered reticular and ill-defined airspace opacities in the lungs, primarily in the lower lungs. Findings are indeterminate. There is mild scarring in the left lower lung. The liver is mildly lobulated. The gallbladder is unremarkable. No hydronephrosis. 1.4 cm left adrenal nodule is consistent with an adenoma. The spleen is unremarkable. There is pancreatic atrophy. There is a high-grade narrowing at the bifurcation of the abdominal aorta due to focal densely calcified plaque. No diverticulitis is identified. Normal appendix. No bowel obstruction. There is a small fat containing umbilical hernia. The bladder is unremarkable. No free fluid is seen in the pelvis. Impression: No PE is identified. Indeterminate mediastinal and right hilar adenopathy, neoplasm should be excluded. Irregular parenchymal opacity in the right upper lung is indeterminate. Neoplasm should be excluded. Mild scattered reticular and ill-defined airspace opacities in the lungs of unknown chronicity are indeterminate. Consider comparison to previous or follow-up to exclude an active process. Additional findings as above. This document has been electronically signed by: Ronny Magana MD on 10/30/2024 18:20:33
--- NOTE | 2024-10-30 13:40 | ECG_ITS ---
Test Reason : SOB Blood Pressure : */* mmHG Vent. Rate : 68 BPM Atrial Rate : 68 BPM P-R Int : 162 ms QRS Dur : 88 ms QT Int : 416 ms P-R-T Axes : 30 72 42 degrees QTcB Int : 442 ms Normal sinus rhythm Normal ECG When compared with ECG of 05-Feb-2021 11:33, No significant change was found Referred By: Shelley Rincon Electronically Signed By: RAMILA DAY MD
[2024-10-30] MEDS: Furosemide 40 MG/4 ML VIAL IVPUSH (14:35)
--- NOTE | 2024-10-30 14:37 | ED_ITS ---
HPI - SOB/Dyspnea General Chief Complaint: Dyspnea Stated Complaint: SOB,LEG EDEMA PER EMS Time Seen by Provider: 10/30/24 13:22 Source: patient Limitations: no limitations History of Present Illness ED Provider: ELVIS KU Narrative: 69 yo male with PMH of COPD not on home O2, HTN, fibromyalgia who comes in with c/o 1 month weight gain, leg edema, shortness of breath with exertion. Denies any preceding illness/chest pain event. He notes it just keeps gettting worse. He baseline sits up sleeping on a couch so he cannot tell about laying flat. He denies cough, fevers, sputum. He uses 5 nips a night to sleep so he was worred about his liver. He has never been on a diuretic and has no hx of CHF MD elicited complaint: shortness of breath Pertinent past history: COPD Onset (ago): month(s) (1) Context: occurred during exertion Timing: intermittent Severity: moderate Exacerbating factors: exertion Relieving factors: rest Known history of: COPD Associated symptoms: other (weight gain and leg swelling) Treatment prior to arrival: none Related Data Home Medications ?Medication ?Instructions ?Recorded ?Confirmed fluoxetine 40 mg capsule 40 mg PO DAILY 02/22/21 methadone 10 mg/5 mL oral solution 10 mg PO DAILY 02/22/21 quetiapine 100 mg tablet (Seroquel) 100 mg PO DAILY 02/22/21 Previous Rx's ?Medication ?Instructions ?Recorded acetaminophen 500 mg tablet 1,000 mg (2 x 500 mg) PO QID PRN 02/05/21 (Tylenol Extra Strength) fever or pain #14 tabs ibuprofen 800 mg tablet 800 mg PO Q8H PRN pain #14 tabs 02/05/21 oxycodone 5 mg tablet 5 mg PO BID PRN pain #10 tabs 02/05/21 oxycodone 10 mg tablet,crush 10 mg PO Q12H pain 3 days #6 tabs 02/24/21 resistant,extended release 12 hr (OxyContin) oxycodone-acetaminophen 10 mg-325 1 tab PO Q8H PRN pain (scale score 03/09/21 mg tablet 4-6) 7 days #21 tabs Allergies Allergy/AdvReac Type Severity Reaction Status Date / Time No Known Allergies Allergy Verified 10/30/24 13:55 Review of Systems 2 Review of Systems: Constitutional : No Fever, No Chills ENT/Mouth : No sore throat, No Rhinorrhea, No Swallowing Difficulty Eyes: No Eye Pain, No Swelling, No Redness Cardiovascular : No Chest Pain, positive SOB, No Orthopnea, positive Edema Respiratory : No Cough, No Sputum, No Wheezing, positive dyspnea Gastrointestinal : No Nausea, No Vomiting, No Diarrhea, No abdominal Pain, No Hematochezia, No Melena Genitourinary : No Dysuria, No Urinary Frequency, No Hematuria Musculoskeletal : No joint pain, No Myalgias Skin : No Skin Lesions, No rash Neuro : No Weakness, No Numbness, No Dizziness, No Headache All other systems reviewed and are negative PMFSH Past Medical History Attestation statement: The following information was validated with the patient. Source: old records reviewed Medical History Depression COPD (chronic obstructive pulmonary disease) Fibromyalgia Surgical History H/O right wrist surgery Social History Social History Alcohol intake: current Alcohol intake frequency: 3 or more drinks per day Patient Tobacco Use Status: Current everyday Tobacco user Tobacco use type: Smokeless Tobacco Substance Use Type: Marijuana Current occupational status: retired Physical Exam 2 Vital Signs: Vital Signs: Last Vital Signs Temp 97.8 F 10/30/24 17:20 Pulse 76 10/30/24 17:20 Resp 20 10/30/24 17:20 BP 200/103 H 10/30/24 17:20 Pulse Ox 96 10/30/24 17:20 O2 Del Method Room Air 10/30/24 17:20 BMI result Body Mass Index 43.2 Appearance: Alert. Oriented X3. No acute distress. Eyes: Pupils equal, round and reactive to light. ENT: Pharynx normal. Neck: Normal inspection. Neck supple. CVS: Normal heart rate and rhythm. Pulses normal. Respiratory: No respiratory distress. Breath sounds rales in both bases Abdomen: Soft and nontender. Skin: Skin warm and dry. Normal skin color. Normal skin turgor. Extremities: 3+ bilateral pitting lower extremity edema. No calf ttp Neuro: Oriented X 3. No motor deficit. No sensory deficit. CN2-12 intact Course Course Course Narrative: NPO at midnight Colette Weiss aware of lung mass Medications Administered Discontinued Medications Generic Name Dose Route Start Last Admin Trade Name Harlan PRN Reason Stop Dose Admin Furosemide 40 mg 10/30/24 14:06 10/30/24 14:35 Furosemide 40 Mg/4 Ml Vial IVPUSH 10/30/24 14:07 40 mg STAT STA Administration Protocol Iohexol 100 ml 10/30/24 17:03 10/30/24 17:03 Iohexol 350 Mg/Ml 100 Ml Infus..Btl IV 10/30/24 17:04 85 ml ONCE ONE Administration Medical Decision Making Medical Decision Making [facility] Narrative: 69 yo male with PMH of COPD not on home O2, HTN, fibromyalgia who presents with 3+pitting edema, rales on exam no hx of CHF will obtain basic labs, BNP, troponin, EKG, DVT study of both legs - check liver/renal/thyroid. Start on IV lasix as well. Possible admit for diuresis and he needs VTE work up of legs - no contraindications to anti coagulation discussed clot with patient he is a heavy smoker could also be lung CA or mass causing hypercoagulability - he has no hx of DVT/VTE Differential Diagnosis Differential Diagnoses: The differential diagnosis associated with the presentation includes CHF, lyte abnormality, renal issue, liver pathology, DVT - possible PE given dyspnea Admission/Observation Consideration of admission/observation: Escalation of care including admission/observation considered admit for clot retrieval Consult Healthcare Provider Management of the patient was discussed with: Hospitalist (will admit) and Base Manager Dr. Weiss - heparin and further eval of chest/abdomen/pelvis angio clot retrieval Lab Data [facility] Lab Attestation statement: I reviewed the patient's lab results. 10/30/24 15:08 10/30/24 15:08 Labs: Lab Results 10/30/24 10/30/24 10/30/24 Range/Units 15:08 15:10 18:03 WBC 9.5 (4.8-10.8) X10*3/uL RBC 4.56 L (4.60-5.80) X10*6/uL Hgb 14.7 (14.0-18.0) g/dl Hct 44.4 (42.0-52.0) % MCV 97.4 (80.0-98.0) fL MCH 32.2 (27.0-33.0) pg MCHC 33.1 (31.0-36.0) g/dl RDW 12.7 (11.0-16.0) % Plt Count 180 (160-400) X10*3/uL MPV 8.8 L (9.4-12.4) fL Immature Gran % (Auto) 0.3 (0.0-0.4) % Neut % (Auto) 72.1 (45-73) % Lymph % (Auto) 17.1 L (20-40) % [place] % (Auto) 8.3 (2-11) % Eos % (Auto) 1.8 (0-4) % Baso % (Auto) 0.4 (0-2) % Lymph # (Auto) 1.6 (1.2-4.9) X10*3/uL [place] # (Auto) 0.8 (0.1-1.2) X10*3/uL Eos # (Auto) 0.2 (0.0-0.4) X10*3/uL Baso # (Auto) 0.0 (0.0-0.2) X10*3/uL Abs Immat Gran (auto) 0.03 (0.00-0.03) X10*3/uL Absolute Neuts (auto) 6.9 (2.0-8.3) x10*3/uL Absolute Nucleated RBC 0.000 (0.0-0.012) X10*3/uL Nucleated RBC % (auto) 0.0 (0.0-0.2) /100WBC PT 12.3 (10.9-12.4) SEC INR 1.1 (0.9-1.1) aPTT Heparin Protocol Cancelled 30.7 L Sodium 140 (135-145) mmol/L Potassium 3.8 (3.3-5.1) mmol/L Chloride 107 (96-108) mmol/L Carbon Dioxide 27 (22-29) mmol/L Anion Gap 10 L (12-20) BUN 11 (9-16) mg/dL Creatinine 0.76 (0.5-1.4) mg/dL Estim Creat Clear Calc 97.9 Estimated GFR > 60 Random Glucose 141 H (60-115) mg/dL Calcium 8.9 (8.4-10.2) mg/dL Magnesium 2.0 (1.6-2.6) mg/dL Total Bilirubin 0.6 (0.0-1.0) mg/dL Direct Bilirubin 0.2 (0.0-0.5) mg/dL AST 26 (5-37) U/L ALT 12 (0-40) U/L Alkaline Phosphatase 48 (39-117) U/L Troponin I High Sens 3.8 (<3.5-35.0) ng/L B-Natriuretic Peptide 34 (<100) pg/mL Total Protein 7.5 (6.5-8.0) g/dL Albumin 3.8 (3.5-5.0) g/dL Lipase 9 (8-78) U/L TSH 1.30 (0.32-4.0) uIU/mL Urine Color Yellow Urine Appearance Clear Urine pH 6.5 (5.0-9.0) Ur Specific [place] 1.015 (1.005-1.025) Urine Protein 30 (1+) H (Neg-Trace) mg/dL Urine Glucose (UA) Negative (Negative) mg/dL Urine Ketones Negative (Negative) mg/dL Urine Blood Negative (Negative) Urine Nitrite Negative (Negative) Ur Leukocyte Esterase Negative (Negative) Urine RBC 0-2 (0-2) /HPF Urine WBC 0-5 (0-5) /HPF Ur Squamous Epith Cells 0-2 (0-2) /HPF Urine Bacteria None Seen (None Seen) Hyaline Casts 0-2 (0-2) /LPF Influenza Type A (PCR) NEGATIVE (Negative) Influenza Type B (PCR) NEGATIVE (Negative) RSV RNA Qual (PCR) NEGATIVE (Negative) SARS-CoV-2 RNA (RT-PCR) NEGATIVE (Negative) Independent Interpretation I performed an independent interpretation of an: EKG and CT Scan (mass/adenopathy no VTE) Interpretation: Rate: 68 Rhythm: NSR [place]: normal Normal P waves. Normal AZEB. Normal QRS complex. ST T wave : normal no XU qTC: 442 prior studies: no acute ischemia The study has been interpreted contemporaneously by me. . Radiology Impression Discussion of test interpretation with radiology: I have reviewed the radiologist's reading. External Record Review External record reviewed: Outpatient record Discharge Plan Discharge Clinical Impression: DVT (deep venous thrombosis), Mass of right lung Patient Disposition: Admitted As Inpatient Print Language: Maori
[2024-10-30 15:19] LABS: MANUAL DIFF FLAG NO
[2024-10-30 15:21] LABS: Basophils Percent Auto 0.4 % (0-2); Eosinophils Absolute Auto 0.2 X10*3/uL (0.0-0.4); Eosinophils Percent Auto 1.8 % (0-4); Hematocrit 44.4 % (42.0-52.0); Hemoglobin 14.7 g/dl (14.0-18.0); Imm Gran Abs Auto 0.03 X10*3/uL (0.00-0.03); Imm Gran Pct Auto 0.3 % (0.0-0.4); Lymphocytes Absolute Auto 1.6 X10*3/uL (1.2-4.9); Lymphocytes Percent Auto 17.1 % (20-40); Mean Corpuscular HGB Conc 33.1 g/dl (31.0-36.0); Mean Corpuscular Hemoglobin 32.2 pg (27.0-33.0); Mean Corpuscular Volume 97.4 fL (80.0-98.0); Mean Platelet Volume 8.8 fL (9.4-12.4); Monocytes Absolute Auto 0.8 X10*3/uL (0.1-1.2); Monocytes Percent Auto 8.3 % (2-11); Neutrophils Absolute Auto 6.9 x10*3/uL (2.0-8.3); Neutrophils Percent Auto 72.1 % (45-73); Platelet Count 180 X10*3/uL (160-400); Red Blood Count 4.56 X10*6/uL (4.60-5.80); Red Cell Distribution Width 12.7 % (11.0-16.0); White Blood Count 9.5 X10*3/uL (4.8-10.8)
[2024-10-30 15:24] LABS: Appearance Urine Clear; Color Urine Yellow; Glucose Urine UA Negative (Negative); Leukocyte Esterase Urine Negative (Negative); Nitrite Urine Negative (Negative); PH 6.5 (5.0-9.0); Specific Gravity - Urine 1.015 (1.005-1.025); UMIC TRIGGER UACC YES; Urine Blood Negative (Negative); Urine Ketones Negative (Negative); Urine Protein 30 (1+) mg/dL (Neg-Trace)
[2024-10-30 15:26] LABS: INTERNATIONAL NORM RATIO 1.1 (0.9-1.1); Prothrombin Time 12.3 SEC (10.9-12.4)
[2024-10-30 15:27] LABS: Bacteria Urine None Seen (None Seen); Hyaline Casts Urine 0-2 /LPF (0-2); RBC Urine 0-2 /HPF (0-2); Squamous Epithelial Cell Urine 0-2 /HPF (0-2); WBC Urine 0-5 /HPF (0-5)
--- OUTSIDE RECORDS SUMMARY | 2024-10-30 15:37 | XMS_ITS | Clinical Summary ---
Author Organization [facility] Address [address] [place] [address] Phone Care Team Providers Care [employer] Estate [employer] Manager Name Role Phone Dima Beauchamp MD Primary Care Provider [phone] Allergies No known active allergies Medications ibuprofen (ADVIL,MOTRIN) 800 mg tablet Take 1 tablet (800 mg total) by mouth 3 (three) times a week. 11/29/2023 Active QUEtiapine (SEROquel) 100 mg tablet Take 1 tablet (100 mg total) by mouth at bedtime. 03/07/2024 Active furosemide (LASIX) 20 mg tablet Take 1 tablet (20 mg total) by mouth 1 (one) time each day. 03/07/2024 Active aspirin 81 mg EC tablet Take 1 tablet (81 mg total) by mouth 1 (one) time each day. 11/29/2023 Active ipratropium-alb uteroL (Combivent Respimat) 20-100 mcg/actuation inhaler Inhale 1 Puff into the lungs every 4 hours as needed (EMERGENCY USE ONLY - wheezing/maddie rtness of breath). 11/29/2023 Active methadone (DOLOPHINE) 10 mg tablet Take 7 Tablets by mouth daily as needed. 08/17/2022 Active valACYclovir (VALTREX) 500 mg tablet Take 1 tablet (500 mg total) by mouth 1 (one) time each day. 03/17/2021 Active benazepriL (LOTENSIN) 10 mg tablet TAKE 1 TABLET BY MOUTH AT BEDTIME 30 tablet 09/27/2024 Active Active Problems Problem Noted Date Diagnosed Date Fibromyalgia 06/25/2024 Opioid abuse 06/25/2024 Overview (06/25/2024): pt is on daily methadone Dysphagia 06/10/2020 Gastroesophageal reflux disease 06/10/2020 Mixed hyperlipidemia 01/10/2019 Severe obesity (BMI 35.0-39.9) with comorbidity 09/08/2014 Chronic bronchitis with emphysema 02/18/2014 HSV infection 07/03/2013 Cytopenia 02/10/2012 Cirrhosis 10/06/2011 Chronic hepatitis C 07/14/2011 Overview (06/25/2024): Started Tx for Hepatitis C 12/16/11. Peg-Intron redipen, Ribavirin & Incivek. Tx continued through week 24. Finished Tx 06/01/12. Repeat labs on 12/26/2012 indicate a sustained viral response. The patient is felt to be cured of his hepatitis C infection. SVR Achevied Depression 03/17/2011 Encounters Date Type Department Care Team Description 09/24/2024 11:30 AM EST Ancillary Procedure Pulmonolgy [address] [phone] Jaime Joaquin Chronic bronchitis with emphysema (CMS/HCC); Chronic obstructive pulmonary disease, unspecified COPD type (CMS/HCC) 09/24/2024 11:00 AM EST Consult Pulmonolgy [address] [phone] Anshul Magallanes MD Chronic bronchitis with emphysema (CMS/HCC) (Primary Dx); Chronic obstructive pulmonary disease, unspecified COPD type (CMS/HCC); Tobacco abuse from Last 3 Months Immunizations Name Administration Dates Next Due Hepatitis A Adult (Havrix; Vaqta) 19yo and older 07/14/2011 Influenza trivalent, 0.5mL, preservative free (Fluarix; FluLaval; Fluzone) ages 6mo and older (Afluria) 3 years and older 07/14/2011 Influenza trivalent, with pr eservative (Fluzone; Afluria) 6mo and older 07/03/2013 Pneumococcal conjugate 13 va lent (Prevnar 13, PCV13) 2mo and older 06/09/2017 Pneumococcal polysaccharide 23 valent (Pneumovax 23) 2yo and older 01/10/2019 Tdap Tetanus diptheria acell ular pertussis (Boostrix; Adacel) 7yo and older 06/09/2017 Zoster Live 07/03/2014 Zoster recombinant (Shingrix) 19yo and older Surgical History Surgery Date Site/Laterality Comments HAND SURGERY PROCEDURE: HISTORICAL HAND SURGERY; COMMENT: internal fixation 2005 ESOPHAGOGASTRODUODENOSCOPY 10/06/11 PROCEDURE: IA ESOPHAGOGASTRODUODENOSCOPY TRANSORAL DIAGNOSTIC; COMMENT: normal; without varices; repeat in 2 yrs COLONOSCOPY 10/06/11 PROCEDURE: HISTORICAL COLONOSCOPY; COMMENT: adenoma; repeat in 3 years Medical History Medical History Date Comments Anxiety DX:Anxiety; COMM ENT: follows with psych [facility] Opioid abuse ([facility]) DX:Opioid abuse ([facility]); COMMENT: pt is on daily methadone Fibromyalgia DX:Fibromyalgia Chronic bronchitis with emph ysema ([facility]) 02/18/2014 DX:Chronic bronchitis with emphysema ([facility]) Gastroesophageal reflux disease 06/10/2020 DX:Gastroesophageal reflux disease Family History Medical History Relation Name Comments Depression Brother 1 Hypertension Brother 2 Heart attack Father Hypertension Father Colon cancer Maternal Grandfather Depression Mother Other cancer Mother Depression Sister Blindness Neg Hx Cataracts Neg Hx Glaucoma Neg Hx Macular degeneration Neg Hx Strabismus Neg Hx Relation Name Status Comments Brother 1 Brother 2 Father Maternal Grandfather Mother Sister Social History Tobacco Use Types Packs/Day Years Used Date Smoking Tobacco: Every Day Smokeless Tobacco: Former Quit: 12/17/2010 Comments:Smoking 5 cigs elisa y Alcohol Use Standard Drinks/Week Comments No 0 (1 standard drink = 0.6 oz pur e alcohol) Sex and Gender Information Value Date Recorded Sex Assigned at Not on file Legal Sex Male 5:53 AM EST Gender Identity Not on file Sexual Orientation Not on file Obstetrics History Last Filed Vital Signs Vital Sign Reading Time Taken Comments Blood Pressure 136/84 09/24/2024 11:01 AM EST Pulse 88 09/24/2024 11:01 AM EST Temperature 36.4 ??C (97.6 ??F) 09/24/2024 11:[address] Respiratory Rate 24 09/24/2024 11:01 AM EST Oxygen Saturation 91% 09/24/2024 11:01 AM EST Inhaled Oxygen Concentration - - Weight 111 kg (244 lb 9.6 oz) 09/24/2024 11:01 A M EST Height 162.6 cm (5' 4 ) 09/24/2024 11:01 AM EST Body Mass Index 41.99 09/24/2024 11:01 AM EST Plan of Treatment Upcoming Encounters Date Type Department Care Team (Late st Contact Info) Description 12/04/2024 10:00 AM EDT Clinical Support Lung Screening Program - [place] [address] [facility] [address] [place] [phone] 12/04/2024 10:30 AM EDT Appointment [facility] CT Scan [address] [place] [phone] 01/29/2025 1:00 PM EDT Office Visit Pulmonolgy - [place] [address] [facility] [address] [place] [phone] Anshul Magallanes MD [address] [facility] [address] [place] [address] Health Maintenance Due Date Last Done Comments Hepatitis A Vaccines (2 of 2 - Risk 2-dose series) 01/13/2012 07/14/2011 Hepatitis B Vaccines (1 of 3 - Risk 3-dose series) 2013 RSV Immunization Patients 60 + Years Old (1 - Risk 60-74 years 1-dose series) 2013 Zoster Vaccines (3 of 3) 03/30/2019 05/2 019, 07/03/2014 Abdominal Aortic Aneurysm (AAA) Screen 08/21/2022 Colorectal Cancer Screening: Colonoscopy 08/21/2022 Falls Risk Assessment 08/21/2022 Social Influencers of Health Screening 08/21/2022 Medicare Annual Wellness Visit 08/17/2023 08/17/2022 COVID-19 Vaccine (1 - 2023-2 5 season) 2024 Influenza Vaccine (#1) 2024 3, 07/14/2011 Hypertension/CHF/CAD Annual BMP Blood Test 01/29/2025 01/30/2024, 01/30/2024 Depression Screening 03/07/2025 03/07/2024 DTaP,Tdap,and Td Vaccines (2 - Td or Tdap) 06/09/2027 06/09/2017 Cholesterol Screening (Lipid Panel) 01/29/2029 01/30/2024, 01/30/2024 Pneumococcal Vaccine: 50+ Years Completed 01/10/2019, 06/09/2017 Hepatitis C Screening Completed 01/17/2019 HIB Vaccines Aged Out No longer eligi ble based on patient's age to complete this topic HPV Vaccines Aged Out No longer eligi ble based on patient's age to complete this topic IPV Vaccines Aged Out No longer eligi ble based on patient's age to complete this topic MMR Vaccines Aged Out No longer eligi ble based on patient's age to complete this topic Meningococcal ACWY Vaccine Aged Out N o longer eligible based on patient's age to complete this topic RSV Immunization Patients Under 20 months Aged Out No longer eligible b ased on patient's age to complete this topic Varicella Vaccines Aged Out No longer eligible based on patient's age to complete this topic Procedures Procedure Name Priority Date/Time Associated Diagnosis Comments PULMONARY FUNCTION TESTING Routine 09/24/2024 11:48 AM EST Chronic bronchitis with emphysema (CMS/HCC) Chronic obstructive pulmonary disease, unspecified COPD type (CMS/HCC) DEPRESSION SCREENING Routine 03/07/2024 ANNUAL BMP BLOOD TEST Routine 01/30/2024 LIPID PANEL Routine 01/30/2024 HEPATITIS C SCREENING Routine 01/17/2019 from Last 3 Months or Most Recently Relevant to Health Maintenance Results * Pulmonary function testing: Carbon Monoxide Diffusing Capacity, Nitrogen Wash Out, Spirometry with Bronchodilator (09/24/2024 11:48 AM EST) Impressions Haven Laureano MD - 09/24/2024 11:48 AM EST FEV1/FVC 83%. FEV1 2.25 at 87%. FVC 76%. No bronchodilator response. TLC of 109%. RV 146%. DLCO 51% (adjusted 55%). Mild obstruction. ??No restriction. ??Moderate decrease in diffusion. Finding consistent with mild obstructive lung disease. Result [facility] Anshul Magallanes MD PFT ORDERABLES Final Result * Depression Screening (03/07/2024) [facility] Depression Screening abstracted Result [facility] Provider HEALTH MAINTENANCE Final Result * Annual BMP Blood Test (01/30/2024) [facility] Annual BMP Blood Test abstracted Result [facility] Provider HEALTH MAINTENANCE Final Result * (ABNORMAL) Lipid panel (01/30/2024) [facility] LDL/HDL Ratio 3 0 - 4 Triglycerides 80 0 - 150 mg/dL Cholesterol 184 0 - 200 mg/dL HDL 60 >=40 mg/dL LDL Cholesterol 108(A) 0 - 100 mg/dL Blood Venous blood specimen / Unknown Result [facility] Provider LAB BLOOD ORDERABLES Nena l Result * Hepatitis C Screening (01/17/2019) [facility] Hepatitis C Screening abstracted Result [facility] Provider HEALTH MAINTENANCE Final Result from Last 3 Months or Most Recently Relevant to Health Maintenance Insurance MEDICAID - [place] [employer] MEDICARE Care Teams Real Estate Firm Manager Relationship Specialty Start Date End Date Dima Beauchamp MD [address] [place] [phone] PCP - General Internal Medicine 07/23/24
[2024-10-30 15:41] LABS: B Type Natriuretic Peptide 34 pg/mL (<100)
[2024-10-30 15:42] LABS: Alanine Aminotransferase 12 U/L (0-40); Albumin Level 3.8 g/dL (3.5-5.0); Alkaline Phosphatase 48 U/L (39-117); Anion Gap 10 (12-20); Aspartate Amino Transferase 26 U/L (5-37); Bilirubin Direct 0.2 mg/dL (0.0-0.5); Bilirubin Total 0.6 mg/dL (0.0-1.0); Blood Urea Nitrogen 11 mg/dL (9-16); Calcium 8.9 mg/dL (8.4-10.2); Carbon Dioxide 27 mmol/L (22-29); Chloride 107 mmol/L (96-108); Creatinine Clr Calc Pharmacy 97.9; Estimated Glomerular Filt Rate > 60; Glucose Random 141 mg/dL (60-115); Lipase 9 U/L (8-78); Potassium 3.8 mmol/L (3.3-5.1); Sodium 140 mmol/L (135-145); Total Protein 7.5 g/dL (6.5-8.0)
[2024-10-30 15:55] LABS: Troponin-I High Sensitivity 3.8 ng/L (<3.5-35.0)
[2024-10-30 15:58] LABS: Influenza A PCR NEGATIVE (Negative); Influenza B PCR NEGATIVE (Negative); Resp Syncy Virus RNA Qual PCR NEGATIVE (Negative); SARS COV2 PCR INHOUSE NEGATIVE (Negative)
[2024-10-30] MEDS: iohexoL 350 MG/ML 100 ML INFUS..BTL IV (17:03)
[2024-10-30 18:20] LABS: PTT Heparin Drip 30.7 SEC (53-77.9)
[2024-10-30] MEDS: Heparin Sodium,Porcine 5,000 UNIT/ML VIAL 8700 UNIT IVPUSH (18:26)
[2024-10-30] MEDS: Heparin Sodium,Porcine/1/2NS 25,000 UNIT/250 ML IV.SOLN 15.48 UNIT IVCONT (18:33)
--- NOTE | 2024-10-30 18:56 | PM.IMHP ---
History of Present Illness Date of Service: 10/30/24 Attending physician on admission: Carlos Alberto Grey Chief Complaint: Lower leg edema Pt is a 69-year-old male with a PMH significant for?COPD not on home O2, HTN, opiate use disorder with remote IVDU and clean x1 year, and anxiety who presents to the ED for evaluation of increased lower leg edema. Pt reports symptoms began approximately 1 month ago and have steadily worsened since then. Edema has been bilateral though worse on left side. Past 2 weeks swelling has spread to his thighs and made it difficult to walk. Pt decided to come to the ED today as symptoms have become so bad he can no longer ignore them. Denies any significant leg or foot pain. Pt has chronic SOB and difficulty breathing, though notes it has been worse for the past 6 months. No chest pain, pressure, or palpitations. Some nausea this past Monday, though known since. Denies vomiting or abdominal pain. Pt has a 40+ pack-year smoking hx, for the past couple of years has been smoking under half a pack daily, though the past few weeks reports has been smoking very heavily due to anxiety. In the ED pt was hypertensive up to 200/103, otherwise vitals stable and WNL, satting at 97% on RA. Labs were grossly unremarkable and around baseline for pt. No leukocytosis. Stable H&H. No significant electrolyte abnormalities. Renal function baseline. Hepatic function WNL. Troponin and BNP negative. UA negative for UTI. Negative for flu, COVID, RSV. Venous duplex U/S positive for left leg DVT. CTA of chest and abdomen/pelvis negative for pulmonary embolism, though found indeterminate mediastinal, right hilar adenopathy, and irregular parenchymal opacity in right upper lobe, all of which are concerning for neoplasm. EKG demonstrated normal sinus rhythm without evidence of significant ST elevations or depressions. Pt was treated with Lasix 40 mg IV and started on a heparin drip. Pt will be admitted to the hospital for treatment and further evaluation of extensive left lower extremity DVT. Review of Systems Review of Systems: Negative except for that which is stated in the HPI. [facility] Medical History Depression COPD (chronic obstructive pulmonary disease) Fibromyalgia Surgical History H/O right wrist surgery Social History Alcohol intake: current Alcohol intake frequency: 3 or more drinks per day Patient Tobacco Use Status: Current everyday Tobacco user Tobacco use type: Smokeless Tobacco Smoked in Last 30 Days: Yes Use of substances other than those prescribed or required for medical reasons: Yes Substance Use Type: Marijuana Substance Use Frequency: Daily Last Used Substance: Hours (ago) Advance Directives: No Advance Directives Information Provided: Yes Do you have a plan to hurt others: No Plan Current occupational status: retired [employer] Allergies Allergy/AdvReac Type Severity Reaction Status Date / Time No Known Allergies Allergy Verified 10/30/24 13:55 Active Medications: Current Medications Heparin Sodium (Porcine) (Heparin Sodium,Porcine 5,000 Unit/Ml Vial) 4,400 unit 40 unit/kg (4400 unit) IVPUSH PROTOCOL BOLUS PRN; Protocol PRN Reason: 40 unit/kg - Heparin Protocol Heparin Sodium (Porcine) (Heparin Sodium,Porcine 5,000 Unit/Ml Vial) 8,700 unit 80 unit/kg (8700 unit) IVPUSH PROTOCOL BOLUS PRN; Protocol PRN Reason: 80 unit/kg - Heparin Protocol Heparin Sodium/Sodium Chloride (Heparin Sodium,Porcine/1/2ns) 25,000 unit in 250 mls @ 0 mls/hr IVCONT .Q0M [facility], 1928–1983; Protocol Last Admin: 10/30/24 18:33 Dose: 14 units/kg/hr, 15.48 mls/hr Home Medications ?Medication ?Instructions ?Recorded ?Confirmed ?Last Taken ?Type fluoxetine 40 mg capsule 40 mg PO DAILY 02/22/21 Unknown History methadone 10 mg/5 mL oral solution 10 mg PO DAILY 02/22/21 02/24/21 08:00 History quetiapine 100 mg tablet (Seroquel) 100 mg PO DAILY 02/22/21 Unknown History Physical Exam Vital Signs and Narrative: Vital Signs: Last Vital Signs Temp 97.8 F 10/30/24 17:20 Pulse 76 10/30/24 17:20 Resp 20 10/30/24 17:20 BP 196/94 H 10/30/24 18:41 Pulse Ox 97 10/30/24 18:41 O2 Del Method Room Air 10/30/24 18:41 BMI result Body Mass Index 43.2 General: AOx3, no acute distress Resp: CTA bilaterally CVS: S1, S2, RRR GI: +BS, NT, no distention Skin: Warm, dry Neuro: Cranial nerves II-XII grossly intact bilaterally. Motor grossly intact bilaterally Extremities: Bilateral 2-3+ pitting edema, L>R w/tenderness. Psych: Appropriate affect Results Labs 10/30/24 15:08 10/30/24 15:08 Labs: Laboratory Results - last 24 hr 10/30/24 10/30/24 10/30/24 15:08 15:10 18:03 MCV 97.4 MCH 32.2 MCHC 33.1 RDW 12.7 Plt Count 180 MPV 8.8 L Immature Gran % (Auto) 0.3 Neut % (Auto) 72.1 Lymph % (Auto) 17.1 L [place] % (Auto) 8.3 Eos % (Auto) 1.8 Baso % (Auto) 0.4 Lymph # (Auto) 1.6 [place] # (Auto) 0.8 Eos # (Auto) 0.2 Baso # (Auto) 0.0 Abs Immat Gran (auto) 0.03 Absolute Neuts (auto) 6.9 Absolute Nucleated RBC 0.000 Nucleated RBC % (auto) 0.0 PT 12.3 INR 1.1 aPTT Heparin Protocol Cancelled 30.7 L Anion Gap 10 L Estim Creat Clear Calc 97.9 Estimated GFR > 60 Random Glucose 141 H Calcium 8.9 Magnesium 2.0 Total Bilirubin 0.6 Direct Bilirubin 0.2 AST 26 ALT 12 Alkaline Phosphatase 48 B-Natriuretic Peptide 34 Total Protein 7.5 Albumin 3.8 Lipase 9 TSH 1.30 Urine Color Yellow Urine Appearance Clear Urine pH 6.5 Ur Specific Dick[place] 1.015 Urine Protein 30 (1+) H Urine Glucose (UA) Negative Urine Ketones Negative Urine Blood Negative Urine Nitrite Negative Ur Leukocyte Esterase Negative Urine RBC 0-2 Urine WBC 0-5 Ur Squamous Epith Cells 0-2 Urine Bacteria None Seen Hyaline Casts 0-2 Influenza Type A (PCR) NEGATIVE Influenza Type B (PCR) NEGATIVE RSV RNA Qual (PCR) NEGATIVE SARS-CoV-2 RNA (RT-PCR) NEGATIVE Imaging Radiologist's Impressions: Impressions Venous Duplex 10/30/24 15:23 IMPRESSION: 1. Positive DVT LEFT leg. (Extensive) 2. No evidence of DVT RIGHT leg. Electronically signed by: Marco A Lazar MD 10/30/2024 03:56 PM EST Assessment and Plan (1) DVT (deep venous thrombosis): Qualifiers: Affected thrombotic vein of extremity: femoral Chronicity: acute DVT location: lower extremity Laterality: left Qualified Code(s): I82.412 - Acute embolism and thrombosis of left femoral vein Status: Acute Plan Pt is a 69-year-old male with a PMH significant for?COPD not on home O2, HTN, opiate use disorder with remote IVDU and clean x1 year, and anxiety who presents to the ED for evaluation of increased lower leg edema. Pt will be admitted to the hospital for treatment and further evaluation of extensive left lower extremity DVT. Acute left lower extremity DVT Pt experiencing increased LLE bilaterally x1 month, L>R Venous duplex positive for extensive left lower extremity DVT Continue heparin drip Vascular surgery consulted, plans for surgical retrieval tomorrow morning NPO past midnight Follow H&H Lung mass Chest CTA showed indeterminate mediastinal and right hilar adenopathy, and irregular parenchymal opacity in right upper lung Concerning for possible neoplasm Follow up outpatient for biopsy HTN Pt's BP quite elevated in the ED Continue MATTHEW inhibitor Opiate use disorder Clean x1 year Continue methadone Full Code Attending:?Dr. Grey DVT Prophylaxis: On Heparin drip Pt will require a hospitalization of at least two nights for treatment of extensive acute left lower extremity DVT requiring surgical clot removal and heparin drip. Quality Stroke Does the patient have a stroke diagnosis?: No VTE Prior VTE?: No VTE Risk Level:: Medical - moderate - high VTE Device Contraindication: Treatment Not Indicated VTE Drug Contraindication: N/A - Med Ordered
--- NOTE | 2024-10-30 20:15 | PC.NURSE ---
Patient accidentally removed his own IV access while standing up to reposition. Heparin drip was connected to this IV access (only IV access). This RN unable to obtain new IV access despite multiple attempts. AYAZ Hoffmann to attempt to obtain IV access. AYAZ Mario aware of reason for heparin drip pause.
--- NOTE | 2024-10-30 20:30 | MHC.EDTECH ---
This tech took over care at 1900,rounded and introduced self to patient,vitals taken BP is elevated 197/102, RN was made aware, patient urinated 300MLS in urinal (yellow in color) patient is resting quietly,call carnes in reach
--- NOTE | 2024-10-30 20:37 | PM.EVENT ---
Event Note Date of Service: 10/30/24 Event Note: Case reviewed along with CT. For Left leg mechanical venous thrombectomy tomorrow. Time Spent With Patient Time: Total time managing care of this patient today ____ minutes.
--- NOTE | 2024-10-30 20:40 | MHC.EDTECH ---
This tech took over care at 1900,rounded and introduced self to patient,vitals taken BP is elevated 197/102, RN was made aware, patient urinated 300MLS in urinal (yellow in colopatient is resting quietly,call carnes in reach
--- NOTE | 2024-10-30 21:08 | PC.NURSE ---
AYAZ Hoffmann able to obtain new IV access to right bicep with ultrasound guidance. Heparin drip reconnected, resumed at same rate (14 u/kg/min) at 21:06. AYAZ Joseph aware.
[2024-10-30] MEDS: Labetalol HCL 100 MG/20 ML VIAL 20 MG IVPUSH (21:34)
[2024-10-30] MEDS: lisinopriL 10 MG TABLET PO (21:34)
--- NOTE | 2024-10-30 21:36 | PHA.MEDREC ---
Addendum entered by Ranjan Arellano 10/30/24 21:48: reviewed, will wait on nursing confirmation of last methadone dose to confirm on home med list Original Note: Pharmacy Consult ? Medication Reconciliation Pharmacy has completed the medication reconciliation. Spoke with patient and he confirmed his medications. Patient stated that he has not seen his Dr in about 2 months and states he was and still should be taking Benzapril 10mg tabs once a day at bedtime and Quetiapine 100mg tab once at bedtime but has not taken them since then; I kept those on the med rec since the patient confirmed how he is taking them and the dose of them. Patient confirmed his Methadone 10mg/5mL solution and confirmed he takes 70mg daily and states he gets it from the [facility] and stated he took it this morning.
--- NOTE | 2024-10-30 22:10 | MHC.EDTECH ---
Addendum entered by Isabell Milligan 10/30/24 22:11: Late entry @ 2029 Original Note: This tech took over care at 1900,rounded and introduced self to patient,vitals taken BP is elevated 197/102, RN was made aware, patient urinated 300MLS in urinal (yellow in color) patient is resting quietly,call carnes in reach
--- NOTE | 2024-10-30 23:06 | PC.NURSE ---
Spoke with Ezio over the phone in overnight pharmacy. Explained the situation regarding No IV access from 19:50 to 21:06, as a result, Heparin drip was not infusing. Heparin drip was resumed at 14 u/kg/hour as ordered at 21:06. Advised by Ezio (pharmacist) to change PTT-HD draw time to 6 hours after reinitiation of Heparin drip (03:06am on 10/31/2024). Order updated.
[2024-10-31] VITALS (35 sets, daily range): BP systolic 136–227; BP diastolic 66–125; PULSE 67–86; RESP 12–119; TEMP 36.6–37; O2SAT 92–97
[2024-10-31] MEDS: Acetaminophen 325 MG TABLET 650 MG PO ×2 (01:20→17:32)
[2024-10-31] MEDS: ALPRAZolam 0.25 MG TABLET PO (01:21)
[2024-10-31] MEDS: Melatonin 3 MG TABLET 6 MG PO (01:21)
[2024-10-31] MEDS: 0.9 % Sodium Chloride Flush 3 ML SYRINGE IVFLUSH ×2 (01:23→19:46)
[2024-10-31 03:14] LABS: MANUAL DIFF FLAG NO
[2024-10-31 03:15] LABS: Basophils Absolute Auto 0.1 X10*3/uL (0.0-0.2); Basophils Percent Auto 0.4 % (0-2); Eosinophils Absolute Auto 0.2 X10*3/uL (0.0-0.4); Eosinophils Percent Auto 1.8 % (0-4); Hematocrit 43.9 % (42.0-52.0); Hemoglobin 14.4 g/dl (14.0-18.0); Imm Gran Abs Auto 0.04 X10*3/uL (0.00-0.03); Imm Gran Pct Auto 0.3 % (0.0-0.4); Lymphocytes Absolute Auto 2.5 X10*3/uL (1.2-4.9); Lymphocytes Percent Auto 21.4 % (20-40); Mean Corpuscular HGB Conc 32.8 g/dl (31.0-36.0); Mean Corpuscular Hemoglobin 32.1 pg (27.0-33.0); Mean Corpuscular Volume 97.8 fL (80.0-98.0); Mean Platelet Volume 8.6 fL (9.4-12.4); Monocytes Absolute Auto 1.1 X10*3/uL (0.1-1.2); Monocytes Percent Auto 9.2 % (2-11); Neutrophils Absolute Auto 7.8 x10*3/uL (2.0-8.3); Neutrophils Percent Auto 66.9 % (45-73); Platelet Count 186 X10*3/uL (160-400); Red Blood Count 4.49 X10*6/uL (4.60-5.80); Red Cell Distribution Width 12.7 % (11.0-16.0); White Blood Count 11.7 X10*3/uL (4.8-10.8)
[2024-10-31 03:28] LABS: Anion Gap 15 (12-20); Blood Urea Nitrogen 12 mg/dL (9-16); Calcium 9.2 mg/dL (8.4-10.2); Carbon Dioxide 24 mmol/L (22-29); Chloride 104 mmol/L (96-108); Creatinine Clr Calc Pharmacy 105.7; Estimated Glomerular Filt Rate > 60; Glucose Random 125 mg/dL (60-115); Potassium 3.6 mmol/L (3.3-5.1); Sodium 139 mmol/L (135-145)
[2024-10-31 03:38] LABS: PTT Heparin Drip 140.2 SEC (53-77.9)
[2024-10-31 05:59] LABS: INTERNATIONAL NORM RATIO 1.1 (0.9-1.1); Prothrombin Time 13.1 SEC (10.9-12.4)
--- NOTE | 2024-10-31 06:11 | PC.NURSE ---
heparin drip remains off waiting for ptthd. down time [phone]
--- NOTE | 2024-10-31 06:12 | PC.NURSE ---
pt slip for labs missed the running from the lab dept. when this rn called for the results no lab result no lab sent down. Lab present on the floor and stat drawn and waiting results. lab drawn at 0525
[2024-10-31 06:14] LABS: PTT Heparin Drip 56.7 SEC (53-77.9)
--- NOTE | 2024-10-31 09:41 | P.CONGS_ITS ---
<Statement entered by John Weiss MD - 10/31/24 12:07> I have seen and evaluated the patient and agree with history, findings, assessment and plan documented by Christine Vela PA-c. In short patient has left lower extremity DVT. He will require left lower extremity mechanical venous thrombectomy. This was discussed in detail with the patient. Of note he does have significant swelling and may even have an element of lymphedema superimposed on this. In addition postprocedure will require Heme-Onc evaluation as well. Thank you for allowing us to assist in his care. History of Present Illness Consult details Consult date: 10/31/24 Narrative: We were consulted on Cr, a pleasant 69 yo male patient, for an extensive DVT found in the left lower extremity on venous duplex US. He presented to the ER yesterday with concerns of increased swelling of bilateral lower extremities with shortness of breath on exertion, worsening over a month. He has an extensive medical hx of COPD not on home O2, fibromyalgia, and HTN and is a current everyday smoker. He states he continues with shortness of breath, but only with exertion. He denies any diff breathing or CP this morning. He states his legs are still swollen and painful and he is not sure if that is due to the swelling, blood clot, or his fibromyalgia. He denies any injuries/wounds. Review of Systems 2 Constitutional: Constitutional: Reports as per HPI and Denies weakness ENT: Reports Normal hearing present and Denies dizziness Cardiovascular: Cardiovascular: Reports as per HPI, Denies chest pain, Denies chest pain at rest, Denies chest pain with activity, Denies dyspnea and Denies dyspnea on exertion Respiratory: Respiratory: Reports as per HPI, Denies cough, Denies dyspnea and Denies dyspnea on exertion Gastrointestinal: Gastrointestinal: Reports as per HPI, Denies abdominal pain, Denies nausea and Denies vomiting Musculoskeletal: Musculoskeletal: Denies numbness Integumentary/Breasts: Skin/Breast: Reports as per HPI, Denies erythema and Denies wounds Neurologic: Reports Normal hearing present, Denies dizziness, Denies numbness, Denies Sensory deficit (Neuro) and Denies weakness Psychiatric: Psychiatric: Reports no additional psychiatric complaints Endocrine: Endocrine: Reports no additional endocrine complaints [facility] Past Medical History Medical History Depression COPD (chronic obstructive pulmonary disease) Fibromyalgia Surgical History Surgical History H/O right wrist surgery Social History Social History Alcohol intake: current Alcohol intake frequency: 3 or more drinks per day Patient Tobacco Use Status: Former Tobacco user Tobacco use type: Smokeless Tobacco Substance Use Type: Marijuana Current occupational status: retired Meds Allergies Allergy/AdvReac Type Severity Reaction Status Date / Time No Known Allergies Allergy Verified 10/30/24 13:55 Active Medications: Current Medications Acetaminophen (Acetaminophen 325 Mg Tablet) 650 mg PO Q6H PRN PRN Reason: Pain, Mild 1-3,fever,headache Last Admin: 10/31/24 01:20 Dose: 650 mg Albuterol/Ipratropium (Albuterol/Iprat 2.5/0.5mg 3 Ml Ampul.Neb) 3 ml INHALE Q4H PRN PRN Reason: wheezing Calcium Carbonate (Calcium Carbonate 750 Mg Tab.Chew) 750 mg PO Q4H PRN PRN Reason: Heartburn Heparin Sodium (Porcine) (Heparin Sodium,Porcine 5,000 Unit/Ml Vial) 4,400 unit 40 unit/kg (4400 unit) IVPUSH PROTOCOL BOLUS PRN; Protocol PRN Reason: 40 unit/kg - Heparin Protocol Heparin Sodium (Porcine) (Heparin Sodium,Porcine 5,000 Unit/Ml Vial) 8,700 unit 80 unit/kg (8700 unit) IVPUSH PROTOCOL BOLUS PRN; Protocol PRN Reason: 80 unit/kg - Heparin Protocol Heparin Sodium/Sodium Chloride (Heparin Sodium,Porcine/1/2ns) 25,000 unit in 250 mls @ 0 mls/hr IVCONT .Q0M CLARISA; Protocol Last Titration: 10/31/24 06:29 Dose: 10 units/kg/hr, 11.06 mls/hr Sodium Chloride (Ns) 1,000 mls @ 100 mls/hr IVCONT .Q10H CLARISA Lisinopril (Lisinopril 10 Mg Tablet) 10 mg PO BEDTIME CLARISA Magnesium Hydroxide (Milk Of Magnesia 30 Ml Oral.Susp) 30 ml PO DAILY PRN PRN Reason: Constipation Melatonin (Melatonin 3 Mg Tablet) 6 mg PO BEDTIME PRN PRN Reason: Insomnia Last Admin: 10/31/24 01:21 Dose: 6 mg Ondansetron HCl (Ondansetron Hcl 4 Mg/2 Ml Vial) 4 mg IVPUSH Q8H PRN PRN Reason: Nausea and Vomiting Quetiapine Fumarate (Quetiapine Fumarate 100 Mg Tablet) 100 mg PO BEDTIME [facility] Last Admin: 10/31/24 01:21 Dose: Not Given Sodium Chloride (0.9 % Sodium Chloride Flush 3 Ml Syringe) 3 ml IVFLUSH QSHIFT [facility] Last Admin: 10/31/24 08:38 Dose: Not Given Home Medications ?Medication ?Instructions ?Recorded ?Confirmed ?Last Taken ?Type methadone 10 mg/5 mL oral solution 70 mg PO DAILY 02/22/21 10/30/24 History quetiapine 100 mg tablet (Seroquel) 100 mg PO BEDTIME 02/22/21 10/30/24 2 Months Ago History ~08/29/24 benazepril 10 mg tablet 10 mg PO BEDTIME 10/30/24 10/30/24 2 Months Ago History ~08/29/24 ipratropium 20 mcg-albuterol 100 1 puff inhalation Q4H PRN wheezing 10/30/24 10/30/24 Unknown History mcg/actuation mist for inhalation (Combivent Respimat) Physical Exam 2 Vital Signs: Vital Signs: Last Vital Signs Temp 98.1 F 10/31/24 08:00 Pulse 67 10/31/24 08:00 Resp 14 10/31/24 08:00 BP 168/89 H 10/31/24 08:00 Pulse Ox 93 10/31/24 08:00 O2 Del Method Room Air 10/31/24 08:00 BMI result Body Mass Index 43.2 Const: General: comfortable and no acute distress O rientation/consciousness: patient oriented x3 HEENT: Ears: hearing grossly normal bilaterally Resp: Effort & Inspection: normal respiratory effort and able to speak in complete sentences Auscultation: clear to auscultation bilaterally Cardio: Rate: regular rate Rhythm: regular rhythm Heart sounds: S1 normal heart sound present and S2 normal heart sound present Bruits: no abdominal aortic bruits, no carotid bruits, no femoral bruits and no renal bruits GI: Palpation (GI): No Abdominal aortic bruit present Neuro: General: patient oriented x3 Cranial nerves: Yes Normal hearing present Sensory Exam: No Sensory deficit (Neuro) Extrem: Other: Bilateral lower extremities: +2/3 peripheral edema noted. Slight erythema noted on the left lower extremity. Palpable pulses difficult to find, but faint DP noted. No wounds or weeping noted. Results Labs 10/31/24 03:01 10/31/24 03:01 Labs: Abnormal lab results 10/30/24 10/30/24 10/30/24 Range/Units 15:08 15:10 18:03 WBC (4.8-10.8) X10*3/uL RBC 4.56 L (4.60-5.80) X10*6/uL MPV 8.8 L (9.4-12.4) fL Lymph % (Auto) 17.1 L (20-40) % Abs Immat Gran (auto) (0.00-0.03) X10*3/uL PT (10.9-12.4) SEC aPTT Heparin Protocol 30.7 L (53-77.9) SEC Anion Gap 10 L (12-20) Random Glucose 141 H (60-115) mg/dL Urine Protein 30 (1+) H (Neg-Trace) mg/dL 10/31/24 10/31/24 Range/Units 03:01 05:28 WBC 11.7 H (4.8-10.8) X10*3/uL RBC 4.49 L (4.60-5.80) X10*6/uL MPV 8.6 L (9.4-12.4) fL Lymph % (Auto) (20-40) % Abs Immat Gran (auto) 0.04 H (0.00-0.03) X10*3/uL PT 13.1 H (10.9-12.4) SEC aPTT Heparin Protocol 140.2 H* D (53-77.9) SEC Anion Gap (12-20) Random Glucose 125 H (60-115) mg/dL Urine Protein (Neg-Trace) mg/dL Short CBC 10/30/24 10/31/24 Range/Units 15:08 03:01 WBC 9.5 11.7 H (4.8-10.8) X10*3/uL Hgb 14.7 14.4 (14.0-18.0) g/dl Hct 44.4 43.9 (42.0-52.0) % Plt Count 180 186 (160-400) X10*3/uL BMP 10/30/24 10/31/24 15:08 03:01 Sodium 140 139 Potassium 3.8 3.6 Chloride 107 104 Carbon Dioxide 27 24 BUN 11 12 Creatinine 0.76 0.71 Calcium 8.9 9.2 Liver Function 10/30/24 Range/Units 15:08 Total Bilirubin 0.6 (0.0-1.0) mg/dL Direct Bilirubin 0.2 (0.0-0.5) mg/dL AST 26 (5-37) U/L ALT 12 (0-40) U/L Alkaline Phosphatase 48 (39-117) U/L Albumin 3.8 (3.5-5.0) g/dL Urine 10/30/24 Range/Units 15:10 Urine Color Yellow Urine Appearance Clear Urine pH 6.5 (5.0-9.0) Ur Specific [place] 1.015 (1.005-1.025) Urine Protein 30 (1+) H (Neg-Trace) mg/dL Urine Glucose (UA) Negative (Negative) mg/dL All other labs normal. Assessment and Plan (1) DVT (deep venous thrombosis): Qualifiers: Affected thrombotic vein of extremity: femoral Chronicity: acute DVT location: lower extremity Laterality: left Qualified Code(s): I82.412 - Acute embolism and thrombosis of left femoral vein Status: Acute Plan We were consulted for Cr, a pleasant 69yo male patient, for findings of an extensive DVT in the left lower extremity on venous duplex US. Chest CTA was negative for a PE. Abd/pelvis CTA revealed indeterminate findings of several enlarged mediastinal and right hilar lymph nodes, largest measuring appx 3.4x2.7cm; in the right upper lobe of the lung revealed an irregular parenchymal opacity measuring a max of appx 3.3cm; also mild scattered reticular and ill- defined airspace opacities particularly in the lower lungs. The pt was made NPO last night at midnight for a venous embolectomy today, possibly this afternoon. We will continue with Heparin. We will continue to monitor. Thank you for the consult. If there are any questions or concerns, please do not hesitate to reach out. Procedures Date of Service Date of Service: 10/31/24
[2024-10-31] MEDS: 0.9 % Sodium Chloride 1,000 ML 100 ML IVCONT ×2 (10:15→19:45)
--- NOTE | 2024-10-31 12:28 | HO.PM.IMPN ---
Subjective Subjective Date of Service: 10/31/24 Interval History: seen and examined this morning follow up for DVT plan for thrombectomy this afternoon no sob at this time Review of Systems Review of Systems: Yes all other systems are reviewed and are negative Constitutional Constitutional: Denies chills and Denies fever(s) Cardiovascular Cardiovascular: Denies chest pain and Denies palpitations Endocrine Endocrine: Denies palpitations Physical Exam Vital Signs: Vital Signs: Last Vital Signs Temp 98.1 F 10/31/24 08:00 Pulse 67 10/31/24 08:00 Resp 14 10/31/24 08:00 BP 168/89 H 10/31/24 08:00 Pulse Ox 93 10/31/24 08:00 O2 Del Method Room Air 10/31/24 08:00 BMI result Body Mass Index 43.2 Const: General: comfortable, alert, awake and Physically active Nutritional Appearance: overweight Orientation/consciousness: patient oriented x3 Resp: Effort & Inspection: normal respiratory effort, able to speak in complete sentences, no respiratory distress and no use of accessory muscles Auscultation: clear to auscultation bilaterally Cardio: Rate: regular rate GI: Inspection: No distended Palpation (GI): Soft to palpation Neuro: Other: grossly nonfocal General: patient oriented x3 Extrem: Other: b/l leg edema Psych: Other: appropraite Objective Data Active Medications Acetaminophen (Acetaminophen 325 Mg Tablet) 650 mg PO Q6H PRN PRN Reason: Pain, Mild 1-3,fever,headache Last Admin: 10/31/24 01:20 Dose: 650 mg Documented By: MIHAI Albuterol/Ipratropium (Albuterol/Iprat 2.5/0.5mg 3 Ml Ampul.Neb) 3 ml INHALE Q4H PRN PRN Reason: wheezing Calcium Carbonate (Calcium Carbonate 750 Mg Tab.Chew) 750 mg PO Q4H PRN PRN Reason: Heartburn Heparin Sodium (Porcine) (Heparin Sodium,Porcine 5,000 Unit/Ml Vial) 4,400 unit 40 unit/kg (4400 unit) IVPUSH PROTOCOL BOLUS PRN; Protocol PRN Reason: 40 unit/kg - Heparin Protocol Heparin Sodium (Porcine) (Heparin Sodium,Porcine 5,000 Unit/Ml Vial) 8,700 unit 80 unit/kg (8700 unit) IVPUSH PROTOCOL BOLUS PRN; Protocol PRN Reason: 80 unit/kg - Heparin Protocol Heparin Sodium/Sodium Chloride (Heparin Sodium,Porcine/1/2ns) 25,000 unit in 250 mls @ 0 mls/hr IVCONT .Q0M CLARISA; Protocol Last Titration: 10/31/24 06:29 Dose: 10 units/kg/hr, 11.06 mls/hr Documented By: JAYLEN Co-signed By: DONAVAN Sodium Chloride (Ns) 1,000 mls @ 100 mls/hr IVCONT .Q10H CLARISA Last Admin: 10/31/24 10:15 Dose: 100 mls/hr Documented By: MARIO Lisinopril (Lisinopril 10 Mg Tablet) 10 mg PO BEDTIME [facility] Magnesium Hydroxide (Milk Of Magnesia 30 Ml Oral.Susp) 30 ml PO DAILY PRN PRN Reason: Constipation Melatonin (Melatonin 3 Mg Tablet) 6 mg PO BEDTIME PRN PRN Reason: Insomnia Last Admin: 10/31/24 01:21 Dose: 6 mg Documented By: MIHAI Ondansetron HCl (Ondansetron Hcl 4 Mg/2 Ml Vial) 4 mg IVPUSH Q8H PRN PRN Reason: Nausea and Vomiting Quetiapine Fumarate (Quetiapine Fumarate 100 Mg Tablet) 100 mg PO BEDTIME [facility] Last Admin: 10/31/24 01:21 Dose: Not Given Documented By: MIHAI Non-Admin Reason: Patient Refused Sodium Chloride (0.9 % Sodium Chloride Flush 3 Ml Syringe) 3 ml IVFLUSH QSHIFT [facility] Last Admin: 10/31/24 08:38 Dose: Not Given Documented By: MARIO Non-Admin Reason: IV Running Labs 10/31/24 03:01 10/31/24 03:01 Labs: Laboratory Results - last 24 hr 10/30/24 10/30/24 10/30/24 15:08 15:10 18:03 MCV 97.4 MCH 32.2 MCHC 33.1 RDW 12.7 Plt Count 180 MPV 8.8 L Immature Gran % (Auto) 0.3 Neut % (Auto) 72.1 Lymph % (Auto) 17.1 L [place] % (Auto) 8.3 Eos % (Auto) 1.8 Baso % (Auto) 0.4 Lymph # (Auto) 1.6 [place] # (Auto) 0.8 Eos # (Auto) 0.2 Baso # (Auto) 0.0 Abs Immat Gran (auto) 0.03 Absolute Neuts (auto) 6.9 Absolute Nucleated RBC 0.000 Nucleated RBC % (auto) 0.0 Hold Purple Top PT 12.3 INR 1.1 aPTT Heparin Protocol Cancelled 30.7 L Anion Gap 10 L Estim Creat Clear Calc 97.9 Estimated GFR > 60 Random Glucose 141 H Calcium 8.9 Magnesium 2.0 Total Bilirubin 0.6 Direct Bilirubin 0.2 AST 26 ALT 12 Alkaline Phosphatase 48 B-Natriuretic Peptide 34 Total Protein 7.5 Albumin 3.8 Lipase 9 TSH 1.30 Urine Color Yellow Urine Appearance Clear Urine pH 6.5 Ur Specific [place] 1.015 Urine Protein 30 (1+) H Urine Glucose (UA) Negative Urine Ketones Negative Urine Blood Negative Urine Nitrite Negative Ur Leukocyte Esterase Negative Urine RBC 0-2 Urine WBC 0-5 Ur Squamous Epith Cells 0-2 Urine Bacteria None Seen Hyaline Casts 0-2 Influenza Type A (PCR) NEGATIVE Influenza Type B (PCR) NEGATIVE RSV RNA Qual (PCR) NEGATIVE SARS-CoV-2 RNA (RT-PCR) NEGATIVE 10/31/24 10/31/24 10/31/24 03:01 04:46 05:28 MCV 97.8 MCH 32.1 MCHC 32.8 RDW 12.7 Plt Count 186 MPV 8.6 L Immature Gran % (Auto) 0.3 Neut % (Auto) 66.9 Lymph % (Auto) 21.4 [place] % (Auto) 9.2 Eos % (Auto) 1.8 Baso % (Auto) 0.4 Lymph # (Auto) 2.5 [place] # (Auto) 1.1 Eos # (Auto) 0.2 Baso # (Auto) 0.1 Abs Immat Gran (auto) 0.04 H Absolute Neuts (auto) 7.8 Absolute Nucleated RBC 0.000 Nucleated RBC % (auto) 0.0 Hold Purple Top SEE NOTE PT 13.1 H INR 1.1 aPTT Heparin Protocol 140.2 H* D 56.7 D Anion Gap 15 Estim Creat Clear Calc 105.7 Estimated GFR > 60 Random Glucose 125 H Calcium 9.2 Magnesium Total Bilirubin Direct Bilirubin AST ALT Alkaline Phosphatase B-Natriuretic Peptide Total Protein Albumin Lipase TSH Urine Color Urine Appearance Urine pH Ur Specific [place] Urine Protein Urine Glucose (UA) Urine Ketones Urine Blood Urine Nitrite Ur Leukocyte Esterase Urine RBC Urine WBC Ur Squamous Epith Cells Urine Bacteria Hyaline Casts Influenza Type A (PCR) Influenza Type B (PCR) RSV RNA Qual (PCR) SARS-CoV-2 RNA (RT-PCR) Assessment and Plan (1) DVT (deep venous thrombosis): Status: Acute Plan This is a 69-year-old male with a PMH significant for?COPD not on home O2, HTN, opiate use disorder with remote IVDU and clean x1 year, and anxiety who presents to the ED for evaluation of increased lower leg edema found to have extensive left lower extremity DVT and lung imaging concerning for malignancy Acute left lower extremity DVT Venous duplex positive for extensive left lower extremity DVT possible due to underlying malignancy given abnormal chest imaging Continue heparin drip - H/H stable Vascular surgery consulted, plan for thrombectomy today heme/onc consult pending Lung mass Chest CTA showed indeterminate mediastinal and right hilar adenopathy, and irregular parenchymal opacity in right upper lung concerning for possible neoplasm Follow up outpatient for biopsy HTN Pt's BP quite elevated in the ED Continue lisinopril - may need titration Opiate use disorder Clean x1 year Continue methadone - awaiting verification form - discussed with pharmacy tobacco dependence Smoking cessation advised NRT Full Code DVT Prophylaxis: On Heparin drip Requires ongoing inpatient stay for treatment of extensive acute left lower extremity DVT requiring surgical clot removal and heparin drip. Quality Stroke Does the patient have a stroke diagnosis?: No VTE Prior VTE?: No VTE Risk Level:: Medical - moderate - high VTE Device Contraindication: Treatment Not Indicated VTE Drug Contraindication: N/A - Med Ordered
--- NOTE | 2024-10-31 13:07 | MHC.CM.PN ---
CHEF UNDER MET WITH PT AT BEDSIDE PT STATES HE LIVES AT HOME ALONE IN AN APARTMENT PT STATES HE DOES NOT RECEIVE SERVICES BUT WOULD BE OPEN TO THEM IF HE QUALIFIES PT'S WAS UNSURE OF HIS PCP, BUT JEAN BARBER III IS LISTED PT DOES NOT USE DME PT'S INS IS [facility] AND MEDICARE, [place] SIGNED PT SIGNED HCP NAMING [facility], [facility] DCP - HOME SELF CARE VS HOME WITH SERVICES VIA PRIVATE TRANSPORT
--- NOTE | 2024-10-31 13:25 | PM.HEMONCCN ---
Subjective - Subjective Chief complaint: Consult for: Lung mass. 2. Left leg DVT. Patient: new to practice Consult date: 10/31/24 Requesting Physician: Dima Beauchamp III, MD Primary Care Provider: Dima Beauchamp III, MD Family Provider: Dima Beauchamp III, MD Medical Summary: DIAGNOSIS: 1. LUNG MASS. 2. LEFT LEG DVT. CURRENT THERAPY: Status post mechanical removal of the blood clot by vascular. 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 Lung mass. 2. DVT. Narrative: Cr Lambert is a 69 year old gentleman, admitted yesterday with shortness of breath, and left leg edema. He presented with c/o 1 month weight gain, leg edema, shortness of breath with exertion. Denies any preceding illness/chest pain event. He notes it just keeps gettting worse. He baseline sits up sleeping on a couch so he cannot tell about laying flat. He denies cough, fevers, sputum. He uses 5 nips a night to sleep so he was worried about his liver. He has never been on a diuretic and has no hx of CHF. SOB: Severity: moderate Exacerbating factors: exertion. In the ED pt was hypertensive up to 200/103, otherwise vitals stable and WNL, satting at 97% on RA. Labs were grossly unremarkable and around baseline for pt. No leukocytosis. Stable H&H. No significant electrolyte abnormalities. Renal function baseline. Hepatic function WNL. Troponin and BNP negative. UA negative for UTI. Negative for flu, COVID, RSV. Venous duplex U/S positive for left leg DVT. CTA of chest and abdomen/pelvis negative for pulmonary embolism, though found indeterminate mediastinal, right hilar adenopathy, and irregular parenchymal opacity in right upper lobe, all of which are concerning for neoplasm. EKG demonstrated normal sinus rhythm without evidence of significant ST elevations or depressions. Pt was treated with Lasix 40 mg IV and started on a heparin drip. DATA BASE: Bilateral lower extremity ultrasound revealed: 1. Positive DVT LEFT leg. (Extensive) 2. No evidence of DVT RIGHT leg. CTA of chest abdomen and pelvis revealed: No PE is identified. Indeterminate mediastinal and right hilar adenopathy, neoplasm should be excluded. Irregular parenchymal opacity in the right upper lung is indeterminate. Neoplasm should be excluded. Mild scattered reticular and ill-defined airspace opacities in the lungs of unknown chronicity are indeterminate. Consider comparison to previous or follow-up to exclude an active process. Additional findings as above. PAST MEDICAL HISTORY: Medical History:) COPD not on home O2, HTN, Fibromyalgia Depression COPD (chronic obstructive pulmonary disease) Fibromyalgia Surgical History:) H/O right wrist surgery FAMILY HISTORY: Social History:) Alcohol intake: current Alcohol intake frequency: 3 or more drinks per day Patient Tobacco Use Status: Current everyday Tobacco user Tobacco use type: Smokeless Tobacco Smoked in Last 30 Days: Yes Use of substances other than those prescribed or required for medical reasons: Yes Substance Use Type: Marijuana Substance Use Frequency: Daily. Review of Systems: Review of Systems: Negative except for that which is stated in the HPI. Review of Systems - Constitutional Reports system reviewed and no additional complaints, except as documented, Reports fatigue, Reports lack of energy, Reports malaise, Reports poor appetite, Reports weight loss - Eyes Reports system reviewed and no additional complaints, except as documented - ENT Reports system reviewed and no additional complaints, except as documented - Cardiovascular Reports system reviewed and no additional complaints, except as documented - Respiratory Reports no additional respiratory complaints - Gastrointestinal Reports system reviewed and no additional complaints, except as documented - Genitourinary Genitourinary: Reports no additional male genitourinary complaints - Musculoskeletal Reports system reviewed and no additional complaints, except as documented - Integumentary/Breasts Skin/Breast: Reports no additional skin complaints - Neurologic Reports hearing normal, Denies dizziness, Denies numbness, Denies sensory deficit, Denies weakness - Psychiatric Reports system reviewed and no additional complaints, except as documented - Endocrine Reports no additional endocrine complaints - Hematologic/Lymphatic Reports system reviewed and no additional complaints, except as documented - Allergic/Immunologic Reports system reviewed and no additional complaints, except as documented Oncology Screenings - ECOG Performance Status ECOG Performance Status: 2 [facility] Medical History: Medical History (Last Updated 11/01/24 @ 09:37 by Patrick aHmilton MD) COPD (chronic obstructive pulmonary disease) Depression Fibromyalgia Lymphadenopathy Functional capacity: wheelchair bound Patient : No Surgical History: Surgical History (Last Reviewed 10/30/24 @ 20:06 by AYAZ Mario) H/O right wrist surgery Social History: Social History (Last Reviewed 10/30/24 @ 20:06 by AYAZ Mario) Living Situation History: Household Members: None Housing: Apartment Do you presently have visiting nurse or other home services: No Tobacco History: Patient Tobacco Use Status: Current everyday Tobacco Tobacco use type: Cigarette Cigarettes Per Day: 5 Second Hand Smoke Exposure: No Substance Use History: Substance Use Type: Marijuana Occupation Assessmet: service: No Current occupational status: retired Home Medications and Allergies Current Medications: Current Medications Acetaminophen (Acetaminophen 325 Mg Tablet) 650 mg PO Q6H PRN PRN Reason: Pain, Mild 1-3,fever,headache Last Admin: 10/31/24 01:20 Dose: 650 mg Albuterol/Ipratropium (Albuterol/Iprat 2.5/0.5mg 3 Ml Ampul.Neb) 3 ml INHALE Q4H PRN PRN Reason: wheezing Calcium Carbonate (Calcium Carbonate 750 Mg Tab.Chew) 750 mg PO Q4H PRN PRN Reason: Heartburn Heparin Sodium (Porcine) (Heparin Sodium,Porcine 5,000 Unit/Ml Vial) 4,400 unit 40 unit/kg (4400 unit) IVPUSH PROTOCOL BOLUS PRN; Protocol PRN Reason: 40 unit/kg - Heparin Protocol Heparin Sodium (Porcine) (Heparin Sodium,Porcine 5,000 Unit/Ml Vial) 8,700 unit 80 unit/kg (8700 unit) IVPUSH PROTOCOL BOLUS PRN; Protocol PRN Reason: 80 unit/kg - Heparin Protocol Heparin Sodium/Sodium Chloride (Heparin Sodium,Porcine/1/2ns) 25,000 unit in 250 mls @ 0 mls/hr IVCONT .Q0M CLARISA; Protocol Last Titration: 10/31/24 06:29 Dose: 10 units/kg/hr, 11.06 mls/hr Sodium Chloride (Ns) 1,000 mls @ 100 mls/hr IVCONT .Q10H CLARISA Last Admin: 10/31/24 10:15 Dose: 100 mls/hr Lisinopril (Lisinopril 10 Mg Tablet) 10 mg PO BEDTIME CLARISA Magnesium Hydroxide (Milk Of Magnesia 30 Ml Oral.Susp) 30 ml PO DAILY PRN PRN Reason: Constipation Melatonin (Melatonin 3 Mg Tablet) 6 mg PO BEDTIME PRN PRN Reason: Insomnia Last Admin: 10/31/24 01:21 Dose: 6 mg Nicotine (Nicotine 7 Mg Patch.Td24) 7 mg TRANSDERMA DAILY CLARISA Ondansetron HCl (Ondansetron Hcl 4 Mg/2 Ml Vial) 4 mg IVPUSH Q8H PRN PRN Reason: Nausea and Vomiting Quetiapine Fumarate (Quetiapine Fumarate 100 Mg Tablet) 100 mg PO BEDTIME [facility] Last Admin: 10/31/24 01:21 Dose: Not Given Sodium Chloride (0.9 % Sodium Chloride Flush 3 Ml Syringe) 3 ml IVFLUSH QSHIFT [facility] Last Admin: 10/31/24 08:38 Dose: Not Given Home Medications ?Medication ?Instructions ?Recorded ?Confirmed ?Type methadone 10 mg/5 mL oral solution 70 mg PO DAILY 02/22/21 11/01/24 History quetiapine 100 mg tablet (Seroquel) 100 mg PO BEDTIME 02/22/21 10/30/24 History benazepril 10 mg tablet 10 mg PO BEDTIME 10/30/24 10/30/24 History ipratropium 20 mcg-albuterol 100 1 puff inhalation Q4H PRN wheezing 10/30/24 10/30/24 History mcg/actuation mist for inhalation (Combivent Respimat) Allergies Allergy/AdvReac Type Severity Reaction Status Date / Time No Known Allergies Allergy Verified 10/30/24 13:55 Physical Exam Vital signs: Vital Signs Temp 98.6 F 10/31/24 12:00 Pulse 76 10/31/24 12:00 Resp 16 10/31/24 12:00 BP 163/75 H 10/31/24 12:00 Pulse Ox 95 10/31/24 12:00 O2 Del Method Room Air 10/31/24 12:00 Intake & Output 10/30/24 10/31/24 10/31/24 18:59 06:59 18:59 Intake Total 141.384 / 141.384 Output Total 400 / 400 Balance -258.616 / -258.616 Urine Output (Average ml/kg/hr) 0.30 Intake: Intake, IV Amount 141.384 / 141.384 Heparin Sodium,Porcine/1/2NS 25 141.384 / 141.384 ,000 unit In 250 ml @ Per Protocol IVCONT .Q0M [facility] Rx#: [id number] Output: Output, Urine Amount 400 / 400 Other: Urine Urinal Urine Color Yellow Weight 110.6 kg Weight in Grams [id number] Weight 110.6 kg - Constitutional Present: moderate distress - Routine HEENT Exam Head: Present: normal inspection, normocephalic Eye: Present: normal appearance ENT: Present: mucous membranes moist - Routine Neck Exam Present: supple Hem/Onc Consult Result - Labs CBC & Chem 7: 11/01/24 06:00 11/01/24 06:00 Labs: Short CBC 10/30/24 10/31/24 Range/Units 15:08 03:01 WBC 9.5 11.7 H (4.8-10.8) X10*3/uL Hgb 14.7 14.4 (14.0-18.0) g/dl Hct 44.4 43.9 (42.0-52.0) % Plt Count 180 186 (160-400) X10*3/uL BMP 10/30/24 10/31/24 15:08 03:01 Sodium 140 139 Potassium 3.8 3.6 Chloride 107 104 Carbon Dioxide 27 24 BUN 11 12 Creatinine 0.76 0.71 Calcium 8.9 9.2 Liver Function 10/30/24 Range/Units 15:08 Total Bilirubin 0.6 (0.0-1.0) mg/dL Direct Bilirubin 0.2 (0.0-0.5) mg/dL AST 26 (5-37) U/L ALT 12 (0-40) U/L Alkaline Phosphatase 48 (39-117) U/L Albumin 3.8 (3.5-5.0) g/dL Urine 10/30/24 Range/Units 15:10 Urine Color Yellow Urine Appearance Clear Urine pH 6.5 (5.0-9.0) Ur Specific [place] 1.015 (1.005-1.025) Urine Protein 30 (1+) H (Neg-Trace) mg/dL Urine Glucose (UA) Negative (Negative) mg/dL Assessment and Plan Patient Active problem list reviewed?: Yes (1) Mass of right lung Status: Acute Assessment and plan: This is a 69-year-old gentleman, who presented yesterday with shortness of breath on exertion and left lower extremity edema of 1 month duration. Bilateral lower extremity ultrasound revealed: 1. Positive DVT LEFT leg. (Extensive) 2. No evidence of DVT RIGHT leg. CTA of chest abdomen and pelvis revealed: No PE is identified. Indeterminate mediastinal and right hilar adenopathy, neoplasm should be excluded. Irregular parenchymal opacity in the right upper lung is indeterminate. Neoplasm should be excluded. Mild scattered reticular and ill-defined airspace opacities in the lungs of unknown chronicity are indeterminate. Consider comparison to previous or follow-up to exclude an active process. Additional findings as above. He needs to be worked up for the suspected lung cancer. He was scheduled for a venous embolectomy of the blood clot by vascular today. He underwent: 1. Percutaneous transluminal venous mechanical thrombectomy. (88897) 2. Plasty of popliteal vein. PLAN: Will request a pulmonary consult, for EBUS, to obtain tissue diagnosis. (He was seen by Dr. Hamilton from Pulmonary. The plan is to proceed with workup as an outpatient. He will have PET scan, PFT and lung biopsy.) Will then come up with a treatment plan based upon the exact histology. Meanwhile will check tumor markers. Thank you for this consult, I will follow along with you, CC: Dima Beauchamp III, MD - Time Spent With Patient Time Spent with Patient (in minutes): 30
--- NOTE | 2024-10-31 13:30 | PC.NURSE ---
PTT-HD 65. Heparin gtt remains at current rate of 10units/kg/hr. order entered for PTT-HD to be drawn in 6hrs per protocol.
[2024-10-31] MEDS: fentaNYL citrate/PF 100 MCG/2 ML VIAL 25 MCG IVPUSH ×2 (14:44→15:05)
[2024-10-31] MEDS: Midazolam HCl 2 MG/2 ML VIAL 0.5 MG IVPUSH ×2 (14:45→15:07)
[2024-10-31] MEDS: Heparin Sodium,Porcine 10,000 UNIT/10 ML VIAL 7000 UNIT IVPUSH (14:55)
[2024-10-31] MEDS: hydrALAZINE HCl 20 MG/ML VIAL 10 MG IVPUSH ×2 (15:15→15:30)
--- NOTE | 2024-10-31 15:56 | W.PM.OPN ---
Operative Note Operative Note Date of Service: 10/31/24 Narrative: Operative note by [facility] Preoperative diagnosis: Deep venous thrombosis of left lower extremity Postoperative diagnosis: Same Procedure: 1 Ultrasound-guided left popliteal vein access 2. Inferior vena cavogram 3. Percutaneous transluminal venous mechanical thrombectomy (16841) 4. Plasty of popliteal vein 5. Radiologic super visual and interpretation Surgeon:John Weiss M.D. Extrusion Die Repair Manager: None Anesthesia: Local with moderate conscious sedation. Total intra service moderate sedation time was 60 minutes. I monitored the patient's level of consciousness and physiologic status continuously throughout the procedure Specimen: None Drains: None Estimated blood loss: 50 mL Implant: None Comorbid conditions: Morbid obesity, newly diagnosed mass in right lung, fibromyalgia, COPD Indications: 69-year-old gentleman with new onset left lower extremity swelling presented to the emergency room yesterday. On ultrasound was discovered to have a DVT. Subsequent CT angiogram of chest abdomen pelvis demonstrated no central component to this. There was no evidence of a filter or stent as well. The plan of care is mechanical thrombectomy of the lower extremity veins. The patient has signed the informed consent after reviewing risks, complications, benefits, and alternatives previously discussed with the patient. The patient was given the opportunity to ask any additional questions or voice any concerns. All questions were answered to the patient's satisfaction. Procedure in detail: Patient was brought to the Angiography suite prior to which a time-out was called for patient identification and site verification. The patient was placed in a prone position. Bilateral popliteal fossas were prepped out. We first access the left popliteal vein under ultrasound guidance. We then placed a percutaneous 5 Chinese sheath. We were then able to traverse the clot with a Glidewire Advantage 035 wire. We brought in a trail Blazer catheter to confirmed true lumen. At this time 7000 units of heparin was administered. After 5 minutes of circulation time we then dilated up the tract. The Clot Triever over the wire system was then brought into position. The fundal portion was stenotic and had to be plasty did with an 8 x 40 balloon. We placed the clot triever sheath and exposed the self expanding Nitinol mesh funnel to facilitate clot removal for large-bore side port rapid aspiration. Once this was accomplished we then advanced over the wire the clot triever catheter with the coring element and braided collection bag. This was brought into the inferior vena cava up past this occlusion and extracted back. We did 4 sequential passes. The main angle of the catheter was placed at the 12:00 o'clock, 03:00 o'clock, 06:00 o'clock, and 09:00 o'clock positions. After each pass had been completed, large amount of clot was removed. After each subsequent pass the clot was removed and it was flushed clear and we then brought it in again through this area. Completion venogram demonstrated an excellent result. We subsequently removed catheter wire in sheath. Pursestring suture was placed at the puncture site. Direct pressure was held for 10 minutes. Sterile dressing was applied. Patient was brought to the recovery room with stable vitals. Interpretation of films: 1. Ultrasound was used to evaluate access site. Popliteal vein did note to have thrombus. Ultrasound was used to visualize needle entry. Image of ultrasound was saved on PACS 2. Vena cavogram demonstrated thrombus in the distal vena cava along the end attire iliofemoral system down into the popliteal vein. 3. Completion vena cavogram demonstrated resolution of clot. Conclusion: 1. Successful mechanical clot removal. 2. Anticoagulation status: Resume heparin drip at previous rate immediately. Tomorrow may start oral anticoagulation. This note is constructed using voice recognition software. While every effort has been made to ensure accuracy, mainspring barrel assembly cleaner errors may have been included. Thank you for allowing me to participate in the care of your patient. Yours sincerely, John Weiss MD, FACS, R.P.V.I.
[2024-10-31] MEDS: Heparin Sodium,Porcine/1/2NS 25,000 UNIT/250 ML IV.SOLN 11.06 UNIT IVCONT ×2 (16:40→19:20)
[2024-10-31] MEDS: Nicotine 7 MG PATCH.TD24 TRANSDERMA (18:22)
--- NOTE | 2024-10-31 19:36 | PC.NURSE ---
anxious , CIWA 13 AYAZ Pope was notified ,started on pheno protocol . c/o sudden numbness and tingling to left arm up to his elbow, no more numbness, still have some tingling , BP 194/89,DR Grey was notified
[2024-10-31] MEDS: lisinopriL 10 MG TABLET PO (19:42)
[2024-10-31] MEDS: PHENobarbitaL sodium 130 MG/ML IM ONCE IM (19:43)
[2024-10-31] MEDS: PHENobarbitaL sodium 130 MG/ML VIAL IM (20:58)
[2024-10-31] MEDS: Albuterol/Iprat 2.5/0.5MG 3 ML AMPUL.NEB INHALE (21:19)
[2024-10-31 22:48] LABS: PTT Heparin Drip 88.6 SEC (53-77.9)
[2024-10-31] MEDS: PHENobarbitaL sodium 130 MG/ML VIAL IM Q3Hx2 110 MG IM (23:36)
[2024-11-01] MEDS: PHENobarbitaL sodium 130 MG/ML VIAL IM Q3Hx2 110 MG IM (02:47)
[2024-11-01 03:14] VITALS: BP 161/72; PULSE 89; RESP 20; TEMP 36.7; O2SAT 96
[2024-11-01] MEDS: 0.9 % Sodium Chloride 1,000 ML 100 ML IVCONT (04:55)
[2024-11-01 06:06] LABS: Hematocrit 40.2 % (42.0-52.0); Hemoglobin 13.7 g/dl (14.0-18.0); Mean Corpuscular HGB Conc 34.1 g/dl (31.0-36.0); Mean Corpuscular Hemoglobin 32.8 pg (27.0-33.0); Mean Corpuscular Volume 96.2 fL (80.0-98.0); Mean Platelet Volume 8.6 fL (9.4-12.4); Platelet Count 177 X10*3/uL (160-400); Red Blood Count 4.18 X10*6/uL (4.60-5.80); Red Cell Distribution Width 12.8 % (11.0-16.0)
[2024-11-01 06:14] LABS: PTT Heparin Drip 59.7 SEC (53-77.9)
[2024-11-01 06:32] LABS: Anion Gap 12 (12-20); Blood Urea Nitrogen 9 mg/dL (9-16); Calcium 8.8 mg/dL (8.4-10.2); Carbon Dioxide 25 mmol/L (22-29); Chloride 109 mmol/L (96-108); Creatinine Clr Calc Pharmacy 110.4; Estimated Glomerular Filt Rate > 60; Glucose Random 106 mg/dL (60-115); Potassium 3.8 mmol/L (3.3-5.1); Sodium 142 mmol/L (135-145)
--- NOTE | 2024-11-01 07:42 | HE.PHANOTE ---
RE: METHADONE DOSING Last dose of methadone 70 mg was given on 10/25/24 at [facility] [phone] with 13 take home doses per Juan Pablo Parkinson LPN.
[2024-11-01 07:56] VITALS: BP 169/79; PULSE 77; RESP 18; TEMP 36.6; O2SAT 92
[2024-11-01] MEDS: methADONE HCl 20 MG/2 ML ORAL.CONC 70 MG PO (08:17)
[2024-11-01] MEDS: Nicotine 14 MG PATCH.TD24 TRANSDERMA (08:47)
[2024-11-01] MEDS: PHENobarbitaL 15 MG TABLET 45 MG PO (08:58)
[2024-11-01 09:30] LABS: ACT 148 Celite s (79-173)
[2024-11-01 09:30] LABS: ACT 277 Celite s (79-173)
--- NOTE | 2024-11-01 09:34 | P.CONPL_ITS ---
History of Present Illness History of Present Illness Consult date: 11/01/24 Chief complaint: Leg edema Narrative: This is an inpatient pulmonary consultation. Pt is a 69-year-old male with a PMH significant for?COPD not on home O2, HTN, opiate use disorder with remote IVDU and clean x1 year, and anxiety who presents to the ED for evaluation of increased lower leg edema. Pt reports symptoms began approximately 1 month ago and have steadily worsened since then. Edema has been bilateral though worse on left side. Past 2 weeks swelling has spread to his thighs and made it difficult to walk. Pt decided to come to the ED today as symptoms have become so bad he can no longer ignore them. Venous duplex U/S positive for left leg DVT. CTA of chest and abdomen/pelvis negative for pulmonary embolism, though found indeterminate mediastinal, right hilar adenopathy, and irregular parenchymal opacity in right upper lobe, all of which are concerning for neoplasm. EKG demonstrated normal sinus rhythm without evidence of significant ST elevations or depressions. Pt was treated with Lasix 40 mg IV and started on a heparin drip. Pt will be admitted to the hospital for treatment and further evaluation of extensive left lower extremity DVT. I did personally review the CT scan of the chest demonstrating dense wedge- shaped ill-defined opacity which could represent a malignant process versus ischemic infarct from pulmonary emboli. Although he has significant lymphadenopathy which is more concerning. At this point the patient did undergo complete thrombectomy in he is currently on heparin drip. He be started on Eliquis. Right now he is going to work on recovering from his condition and then would recommend an outpatient PET scan specially with significant lymphadenopathy even the cervical area. He will followed closely with oncology and Pulmonary as an outpatient to facilitate his testing in diagnosis. But for now I will just focus on letting him recover from his significant vascular intervention. Review of Systems 2 Constitutional: Constitutional: Reports as per HPI and Denies weakness ENT: Reports Normal hearing present and Denies dizziness Cardiovascular: Cardiovascular: Reports as per HPI, Denies chest pain, Denies chest pain at rest, Denies chest pain with activity, Denies dyspnea and Denies dyspnea on exertion Respiratory: Respiratory: Reports as per HPI, Denies cough, Denies dyspnea, Denies dyspnea on exertion and Denies wheezing Gastrointestinal: Gastrointestinal: Reports as per HPI, Denies abdominal pain, Denies nausea and Denies vomiting Musculoskeletal: Musculoskeletal: Denies numbness Integumentary/Breasts: Skin/Breast: Reports as per HPI, Denies erythema and Denies wounds Neurologic: Reports Normal hearing present, Denies dizziness, Denies numbness, Denies Sensory deficit (Neuro) and Denies weakness Psychiatric: Psychiatric: Reports no additional psychiatric complaints Endocrine: Endocrine: Reports no additional endocrine complaints Hematologic/Lymphatic: Hematologic/Lymphatic: Reports lymphadenopathy Allergic/Immunologic: Allergic/Immunologic: Denies wheezing PMFSH Past Medical History Medical History (Updated 11/01/24 @ 09:37 by Patrick Hamilton MD) Lymphadenopathy Depression COPD (chronic obstructive pulmonary disease) Fibromyalgia Surgical History Surgical History (Updated 10/31/24 @ 13:34 by Kyle Martinez MD) H/O right wrist surgery Social History Social History Household Members: None Housing: Apartment Do you presently have visiting nurse or other home services: No Alcohol intake: current Alcohol intake frequency: does not drink Patient Tobacco Use Status: Current everyday Tobacco user Tobacco use type: Cigarette Cigarettes Per Day: 5 Second Hand Smoke Exposure: No Substance Use Type: Marijuana service: No Current occupational status: retired [email or web address] Allergies Allergy/AdvReac Type Severity Reaction Status Date / Time No Known Allergies Allergy Verified 10/30/24 13:55 Active Medications: Current Medications Acetaminophen (Acetaminophen 325 Mg Tablet) 650 mg PO Q6H PRN PRN Reason: Pain, Mild 1-3,fever,headache Last Admin: 10/31/24 17:32 Dose: 650 mg Albuterol/Ipratropium (Albuterol/Iprat 2.5/0.5mg 3 Ml Ampul.Neb) 3 ml INHALE Q4H PRN PRN Reason: wheezing Last Admin: 10/31/24 21:19 Dose: 3 ml Calcium Carbonate (Calcium Carbonate 750 Mg Tab.Chew) 750 mg PO Q4H PRN PRN Reason: Heartburn Heparin Sodium (Porcine) (Heparin Sodium,Porcine 5,000 Unit/Ml Vial) 4,400 unit 40 unit/kg (4400 unit) IVPUSH PROTOCOL BOLUS PRN; Protocol PRN Reason: 40 unit/kg - Heparin Protocol Heparin Sodium (Porcine) (Heparin Sodium,Porcine 5,000 Unit/Ml Vial) 8,700 unit 80 unit/kg (8700 unit) IVPUSH PROTOCOL BOLUS PRN; Protocol PRN Reason: 80 unit/kg - Heparin Protocol Heparin Sodium/Sodium Chloride (Heparin Sodium,Porcine/1/2ns) 25,000 unit in 250 mls @ 0 mls/hr IVCONT .Q0M [facility]; Protocol Last Titration: 11/01/24 06:17 Dose: 8 units/kg/hr, 8.85 mls/hr Sodium Chloride (Ns) 1,000 mls @ 100 mls/hr IVCONT .Q10H [facility] Last Admin: 11/01/24 04:55 Dose: 100 mls/hr Lisinopril (Lisinopril 10 Mg Tablet) 10 mg PO BEDTIME [facility] Last Admin: 10/31/24 19:42 Dose: 10 mg Magnesium Hydroxide (Milk Of Magnesia 30 Ml Oral.Susp) 30 ml PO DAILY PRN PRN Reason: Constipation Melatonin (Melatonin 3 Mg Tablet) 6 mg PO BEDTIME PRN PRN Reason: Insomnia Last Admin: 10/31/24 01:21 Dose: 6 mg Methadone HCl (Methadone Hcl 20 Mg/2 Ml Oral.Conc) 70 mg PO DAILY [facility] Last Admin: 11/01/24 08:17 Dose: 70 mg Nicotine (Nicotine 14 Mg Patch.Td24) 14 mg TRANSDERMA DAILY [facility] Last Admin: 11/01/24 08:47 Dose: 14 mg Ondansetron HCl (Ondansetron Hcl 4 Mg/2 Ml Vial) 4 mg IVPUSH Q8H PRN PRN Reason: Nausea and Vomiting Pharmacy Consult (Consult Rx Etoh Phenob Im/Po) 1 each MISCELLANE ONCE PRN; Protocol PRN Reason: Consult order Phenobarbital (Phenobarbital 15 Mg Tablet) 45 mg PO BID [facility] Stop: 11/02/24 21:01 Last Admin: 11/01/24 08:58 Dose: 45 mg Phenobarbital (Phenobarbital 30 Mg Tablet) 30 mg PO BID [facility] Stop: 11/04/24 21:01 Phenobarbital (Phenobarbital 30 Mg Tablet) 30 mg PO DAILY [facility] Stop: 11/06/24 09:01 Quetiapine Fumarate (Quetiapine Fumarate 100 Mg Tablet) 100 mg PO BEDTIME [facility] Last Admin: 10/31/24 21:06 Dose: Not Given Sodium Chloride (0.9 % Sodium Chloride Flush 3 Ml Syringe) [facility] Last Admin: 11/01/24 08:21 Dose: Not Given Home Medications ?Medication ?Instructions ?Recorded ?Confirmed ?Last Taken ?Type methadone 10 mg/5 mL oral solution 70 mg PO DAILY 02/22/21 11/01/24 10/30/24 History quetiapine 100 mg tablet (Seroquel) 100 mg PO BEDTIME 02/22/21 10/30/24 2 Months Ago History ~08/29/24 benazepril 10 mg tablet 10 mg PO BEDTIME 10/30/24 10/30/24 2 Months Ago History ~08/29/24 ipratropium 20 mcg-albuterol 100 1 puff inhalation Q4H PRN wheezing 10/30/24 10/30/24 Unknown History mcg/actuation mist for inhalation (Combivent Respimat) Physical Exam 2 Vital Signs: Vital Signs: Last Vital Signs Temp 97.9 F 11/01/24 07:56 Pulse 77 11/01/24 07:56 Resp 18 11/01/24 07:56 BP 169/79 H 11/01/24 07:56 Pulse Ox 92 11/01/24 07:56 O2 Del Method Room Air 11/01/24 07:56 O2 Flow Rate 2 10/31/24 15:55 BMI result Body Mass Index 43.2 Const: General: comfortable, alert, awake and Physically active Nutritional Appearance: overweight Orientation/consciousness: patient oriented x3 Neck: Neck: Yes lymphadenopathy Chest: Chest palpation & inspection: normal inspection of the chest Resp: Effort & Inspection: normal respiratory effort, able to speak in complete sentences, no respiratory distress and no use of accessory muscles A uscultation: clear to auscultation bilaterally Cardio: Rate: regular rate GI: Inspection: No distended Palpation (GI): Soft to palpation Neuro: Other: grossly nonfocal General: patient oriented x3 Cranial nerves: Yes Normal hearing present Sensory Exam: No Sensory deficit (Neuro) Extrem: Other: b/l leg edema Psych: Other: appropraite Results Laboratory Findings 11/01/24 06:00 11/01/24 06:00 ABG, PT/INR, D-dimer: PT/INR, D-dimer PT 13.1 SEC (10.9-12.4) H 10/31/24 05:28 INR 1.1 (0.9-1.1) 10/31/24 05:28 Abnormal lab findings: Abnormal Labs 10/30/24 10/30/24 10/30/24 15:08 15:10 18:03 WBC RBC 4.56 L Hgb Hct MPV 8.8 L Lymph % (Auto) 17.1 L Abs Immat Gran (auto) PT aPTT Heparin Protocol 30.7 L Activated Clotting Time Chloride Anion Gap 10 L Random Glucose 141 H Urine Protein 30 (1+) H 10/31/24 10/31/24 10/31/24 03:01 05:28 15:09 WBC 11.7 H RBC 4.49 L Hgb Hct MPV 8.6 L Lymph % (Auto) Abs Immat Gran (auto) 0.04 H PT 13.1 H aPTT Heparin Protocol 140.2 H* D Activated Clotting Time 277 H Chloride Anion Gap Random Glucose 125 H Urine Protein 10/31/24 11/01/24 22:17 06:00 WBC RBC 4.18 L Hgb 13.7 L Hct 40.2 L MPV 8.6 L Lymph % (Auto) Abs Immat Gran (auto) PT aPTT Heparin Protocol 88.6 H D Activated Clotting Time Chloride 109 H Anion Gap Random Glucose Urine Protein Assessment and Plan (1) Mass of right lung: Status: Acute (2) DVT (deep venous thrombosis): Qualifiers: Affected thrombotic vein of extremity: femoral Chronicity: acute DVT location: lower extremity Laterality: left Qualified Code(s): I82.412 - Acute embolism and thrombosis of left femoral vein Status: Acute (3) Lymphadenopathy: Status: Acute Plan Continue with heparin drip and proceed to Eliquis for full anticoagulation for his thrombotic disease and potential thromboembolic disease Outpatient PET scan Outpatient PFTs Outpatient arrangements for biopsy. My suspicion is he is likely going to have cervical lymphadenopathy PET avid that will be easily assessable for biopsy both for diagnosis and staging. Procedures Date of Service Date of Service: 11/01/24
--- NOTE | 2024-11-01 09:38 | HO.POSTANES ---
Post Anesthesia Evaluation Post Anesthesia Evaluation Date of Service: 11/01/24 Vital Signs: Vital Signs Temp Pulse Resp BP Pulse Ox O2 Del Method 11/01/24 07:56 97.9 F 77 18 169/79 H 92 Room Air 11/01/24 03:14 98.0 F 89 20 161/72 H 96 Room Air 10/31/24 23:33 75 17 163/83 H 94 Room Air Anesthesia: Monitored Mental Status: Awake Pain Control: Satisfactory Nausea/Vomiting: None Hydration: Adequate Anesthesia-Related Issues: No Anes. Related Issues
[2024-11-01] MEDS: Apixaban 5 MG TABLET 10 MG PO (11:17)
--- NOTE | 2024-11-01 11:33 | P.DS_ITS ---
DS: Providers Provider Date of Service: 11/01/24 Date of admission: 10/30/24 19:11 Date of discharge: 11/01/24 Primary care physician: Dima Beauchamp III, MD Consults: 10/30/24 19:11 Consult to Vascular Surgery Routine Consulting Provider: [facility] [place] Reason for consultation: extensive dvt 10/31/24 12:32 Consult to Hematology / Oncology Routine Consulting Provider: [facility] [place] Oncology/Hematology Reason for consultation: abnormal lung imaging ?malignancy. acute DVT Has provider been notified: No 10/31/24 18:35 Addiction Medicine Routine Consulting Provider: Addiction Covering Reason for consultation: ETOH Attending physician on discharge: Shun Vee Discharging clinician: Toshia Chopra DS: Diagnosis Discharge Diagnosis (1) Mass of right lung: Status: Acute (2) DVT (deep venous thrombosis): Status: Acute (3) Lymphadenopathy: Status: Acute DS: Summary Hospital Course Hospital Course: From H&P on the day of admission Pt is a 69-year-old male with a PMH significant for?COPD not on home O2, HTN, opiate use disorder with remote IVDU and clean x1 year, and anxiety who presents to the ED for evaluation of increased lower leg edema. Pt reports symptoms began approximately 1 month ago and have steadily worsened since then. Edema has been bilateral though worse on left side. Past 2 weeks swelling has spread to his thighs and made it difficult to walk. Pt decided to come to the ED today as symptoms have become so bad he can no longer ignore them. Denies any significant leg or foot pain. Pt has chronic SOB and difficulty breathing, though notes it has been worse for the past 6 months. No chest pain, pressure, or palpitations. Some nausea this past Monday, though known since. Denies vomiting or abdominal pain. Pt has a 40+ pack-year smoking hx, for the past couple of years has been smoking under half a pack daily, though the past few weeks reports has been smoking very heavily due to anxiety. In the ED pt was hypertensive up to 200/103, otherwise vitals stable and WNL, satting at 97% on RA. Labs were grossly unremarkable and around baseline for pt. No leukocytosis. Stable H&H. No significant electrolyte abnormalities. Renal function baseline. Hepatic function WNL. Troponin and BNP negative. UA negative for UTI. Negative for flu, COVID, RSV. Venous duplex U/S positive for left leg DVT. CTA of chest and abdomen/pelvis negative for pulmonary embolism, though found indeterminate mediastinal, right hilar adenopathy, and irregular parenchymal opacity in right upper lobe, all of which are concerning for neoplasm. EKG demonstrated normal sinus rhythm without evidence of significant ST elevations or depressions. Pt was treated with Lasix 40 mg IV and started on a heparin drip. Pt will be admitted to the hospital for treatment and further evaluation of extensive left lower extremity DVT. Acute left lower extremity DVT Venous duplex positive for extensive left lower extremity DVT. possible due to underlying malignancy given abnormal chest imaging. Initially treated with heparin drip. Seen by vascular surgery, status post thrombectomy on October 31. Okay to transitioned to oral anticoagulation per vascular surgery. plan for outpatient follow-up in 2 weeks. Lung mass Chest CTA showed indeterminate mediastinal and right hilar adenopathy, and irregular parenchymal opacity in right upper lung concerning for possible neoplasm. Seen by Oncology and pulmonology, plan for outpatient PET scan and outpatient biopsy determine further management. HTN. initially high blood pressure, likely due to component of etoh withdrawal, outpatient follow up, may need further titration. Alcohol use disorder. Started on phenobarbital, CIWA score low this morning. Seen by addiction Medicine, will follow-up outpatient in the [facility]. Opiate use disorder. 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 Smoking cessation advised. will be discharged with NRT Time Attestation Discharge Coordination Time (in mins): 37 Quality: Safe Use of Opioids Does Pt have an Active Cancer Diagnosis on the Problem List?: No Quality: Stroke Does the patient have a stroke diagnosis?: No Physical Exam Vital Signs: Vital Signs: Last Vital Signs Temp 97.9 F 11/01/24 07:56 Pulse 77 11/01/24 07:56 Resp 18 11/01/24 07:56 BP 169/79 H 11/01/24 07:56 Pulse Ox 92 11/01/24 07:56 O2 Del Method Room Air 11/01/24 07:56 O2 Flow Rate 2 10/31/24 15:55 BMI result Body Mass Index 43.2 Const: General: comfortable, alert, awake and Physically active Nutritional Appearance: overweight Orientation/consciousness: patient oriented x3 Resp: Effort & Inspection: normal respiratory effort, able to speak in complete sentences, no respiratory distress and no use of accessory muscles Auscultation: clear to auscultation bilaterally Cardio: Rate: regular rate GI: Inspection: No distended Palpation (GI): Soft to palpation Neuro: Other: grossly nonfocal General: patient oriented x3 Extrem: Other: b/l leg edema Psych: Other: appropraite DS: Data Data Completed and Pending Labs on day of discharge: Laboratory Results - last 24 hr 10/31/24 10/31/24 10/31/24 12:55 14:57 15:09 WBC RBC Hgb Hct MCV MCH MCHC RDW Plt Count MPV Absolute Nucleated RBC Nucleated RBC % (auto) aPTT Heparin Protocol 65.0 Activated Clotting Time 148 277 H Sodium Potassium Chloride Carbon Dioxide Anion Gap BUN Creatinine Estim Creat Clear Calc Estimated GFR Random Glucose Calcium 10/31/24 11/01/24 22:17 06:00 WBC 9.0 RBC 4.18 L Hgb 13.7 L Hct 40.2 L MCV 96.2 MCH 32.8 MCHC 34.1 RDW 12.8 Plt Count 177 MPV 8.6 L Absolute Nucleated RBC 0.000 Nucleated RBC % (auto) 0.0 aPTT Heparin Protocol 88.6 H D 59.7 D Activated Clotting Time Sodium 142 Potassium 3.8 Chloride 109 H Carbon Dioxide 25 Anion Gap 12 BUN 9 Creatinine 0.68 Estim Creat Clear Calc 110.4 Estimated GFR > 60 Random Glucose 106 Calcium 8.8 Discharge Plan Discharge Anticipated Discharge Date/Time: 11/01/24 13:23 Patient Disposition: Home Health Service Discharge Diagnosis: DVT left leg lymphadenopathy left lung mass Referrals: Zeynep JOHNSON [Outside] - 1 Week Dima Beauchamp III, MD [Primary Care Provider] - 1 Week John Weiss MD [Physician] - 2 Weeks Kyle Martinez MD [Physician] - 2 Weeks Patrick Hamilton MD [Physician] - 1 Week Discharge Medications: New nicotine 14 mg/24 hr Patch 24 Hour 14 mg transdermal DAILY Qty: 28 0RF Eliquis 5 mg tablet 5 mg PO BID Qty: 208 0RF Rx Instructions: take 10 mg (2 tabs) twice daily for 7 days then 5 mg )1 tab) twice daily after that Continued acetaminophen [Tylenol Extra Strength] 500 mg tablet 1,000 mg PO QID PRN (Reason: fever or pain) Qty: 14 0RF benazepril 10 mg tablet 10 mg PO BEDTIME Combivent Respimat 20-100 mcg/actuation mist 1 puff inhalation Q4H PRN (Reason: wheezing) quetiapine [Seroquel] 100 mg tablet 100 mg PO BEDTIME methadone 10 mg/5 mL solution 70 mg PO DAILY Discontinued ibuprofen 800 mg tablet 800 mg PO Q8H PRN (Reason: pain) Qty: 14 0RF Discharge Orders: Discharge Order (Routine); Ordered 11/01/24 Ordered By: Toshia Chopra Activity on Discharge: As tolerated Stand Alone Forms: Patient Portal Discharge page Print Language: Serbian Care Plan Goals: see below Health Concerns: left leg dvt abnormal lung imaging alcohol withdrawal Plan of Treatment: left leg dvt - take eliquis as prescribed - 10 mg twice daily for one week and then 5 mg twice daily recommend to avoid alcohol use and tobacco use you will be discharged home with nicotine patch Recommend outpatient follow-up in the [facility] you will need to follow up with vascular surgery in two weeks you will need follow up with oncology and pulmonology in 1-2 weeks you will be discharged home with PT and VNA services do not take NSAIDs (ibuprofen, motrin etc) while taking eliquis Assessment: see discharge summary
[2024-11-01 11:38] VITALS: BP 146/70; PULSE 98; RESP 18; TEMP 36.8; O2SAT 94
--- NOTE | 2024-11-01 11:54 | HO.VASCPN ---
Subjective Subjective Date of Service: 11/01/24 Interval history: Cr is doing well today. He is status post venous thrombectomy with Dr. Weiss yesterday. He states he has little sore behind his knee but denies any other pain he states he already feels better and his left lower leg. He states he thinks the swelling has already gone down a little bit. He denies any shortness of breath, deep breathing, or chest pain. He is eating and drinking well. Physical Exam Vital Signs: Vital Signs: Last Vital Signs Temp 98.3 F 11/01/24 11:38 Pulse 98 11/01/24 11:38 Resp 18 11/01/24 11:38 BP 146/70 H 11/01/24 11:38 Pulse Ox 94 11/01/24 11:38 O2 Del Method Room Air 11/01/24 11:38 O2 Flow Rate 2 10/31/24 15:55 BMI result Body Mass Index 43.2 Const: General: comfortable and no acute distress Orientation/consciousness: patient oriented x3 HEENT: Ears: hearing grossly normal bilaterally Resp: Effort & Inspection: normal respiratory effort and able to speak in complete sentences Auscultation: clear to auscultation bilaterally Cardio: Rate: regular rate Rhythm: regular rhythm Heart sounds: S1 normal heart sound present and S2 normal heart sound present Bruits: no abdominal aortic bruits, no carotid bruits, no femoral bruits and no renal bruits GI: Palpation (GI): No Abdominal aortic bruit present Neuro: General: patient oriented x3 Cranial nerves: Yes CN's II-XII intact bilaterally Extrem: Other: Bilateral lower extremities:+2 peripheral edema noted. Less erythema noted on the left lower extremity. Palpable pulses difficult to find, but faint DP noted. No wounds or weeping noted. Progress Note: A&P Assessment and plan (1) DVT (deep venous thrombosis): Status: Acute Assessment and Plan: Cr is doing well today status post venous thrombectomy yesterday. He has been started on oral Eliquis. He does endorse that behind his knee is a little sore. We discussed the complications and side effects of anticoagulation and things he needs to be careful with. We discussed that we will follow up with him outpatient in approximately 2 weeks. Thank you for allowing us to participate in the patient's care. There are any questions or concerns, please do not hesitate to reach out to us. Time Spent With Patient Time: Total time managing care of this patient today ____ minutes. Procedures Date of Service Date of Service: 11/01/24 Quality Stroke Does the patient have a stroke diagnosis?: No VTE Prior VTE?: No VTE Risk Level:: Medical - moderate - high VTE Device Contraindication: Treatment Not Indicated VTE Drug Contraindication: N/A - Med Ordered
--- NOTE | 2024-11-01 13:07 | MHC.CM.PN ---
Per PA, Patient will be medically cleared for dc'd to home today, with services. A referral has been made to [facility], who is aware of today's dc;Patient is aware of and in agreement with the dc plan. CM has provided Patient with the Eliquis coupon, per PA's request.
--- NOTE | 2024-11-01 13:13 | P.F2F_ITS ---
Service Date Service Date: 11/01/24 Encounter Date of encounter: 11/01/24 Reasons for Services Signs and symptoms assessed: needs chcf for medication management; monitoring of blood pressure and oxygen saturation Reason for chcf: medication management Reason for physical therapy: home safety and mobility and therapeutic exercises Overseeing Care: Dima Beauchamp III Homebound: Leaving the home is medically contraindicated at this time without the asist of a device and/or another person due th the listed conditions above and below. Reason homebound: weakness related to hospital stay Certification: Based on the above findings, I certify that this patient is confined to the home and needs intermittent chcf care, physical therapy and/or speech therapy, or continues to need occupational therapy. The patient is under my care, and I have initiated the establishment of the plan of care. The patient will be followed by a physician who will periodically review the plan of care. Time Spent With Patient Time: Total time managing care of this patient today ____ minutes.
== END 2024-11-01 14:29 | disposition home health service (06) | DRG 271 ==
LOC: HO.ED 18:10 → HO.EDOVER 19:21 → HO.S3 10-31 13:30 → HO.EDOVER 10-31 15:17 → HO.IMC 10-31 15:29
PROVIDERS: Emergency Medicine; Surgery Vascular Surgery; Admitting Provider Student in an Organized Health Care Education/Training Program; Emergency Provider Emergency Medicine; PCP Internal Medicine; Visit Provider Physician Assistant Medical
PROC: 04CL3ZZ Extirpation of Matter from Left Femoral Artery, Percutaneous Approach (ICD-10-PCS; principal; 2024-10-31 14:00)
DX: I82.412 Acute embolism and thrombosis of left femoral vein (principal); F11.20 Opioid dependence, uncomplicated; Z68.41 Body mass index [BMI] 40.0-44.9, adult; F17.210 Nicotine dependence, cigarettes, uncomplicated; E66.01 Morbid (severe) obesity due to excess calories; F10.90 Alcohol use, unspecified, uncomplicated; D38.1 Neoplasm of uncertain behavior of trachea, bronchus and lung; R59.0 Localized enlarged lymph nodes; J44.9 Chronic obstructive pulmonary disease, unspecified; I10 Essential (primary) hypertension; M79.7 Fibromyalgia; Z20.822 Contact with and (suspected) exposure to COVID-19; Z71.6 Tobacco abuse counseling; Z79.899 Other long term (current) drug therapy
CPT/HCPCS: 0241U; 36415; 37187; 71275; 74174; 76937; 80048; 80076; 81001; 83690; 83735; 83880; 84443; 84484; 85025; 85027; 85347; 85610; 85730; 93005; 93970; 94640; 99152; 99153; 99285; C1725; C1757; C1769; C1887; J0360; J1644; J1920; J1940; J2250; J2560; J3010; Q9967; S9485

== ENCOUNTER → 2024-10-30 13:39 | Outpatient (BNV) | payer OTHER, MEDICAID, SELFPAY | PROVIDERS: Emergency Provider Emergency Medicine; PCP Internal Medicine; Visit Provider Radiology Diagnostic Radiology | DX: R91.8 Other nonspecific abnormal finding of lung field (principal); I82.402 Acute embolism and thrombosis of unspecified deep veins of left lower extremity | CPT/HCPCS: 71275; 74174; 93970 ==

== ENCOUNTER → 2024-10-30 13:40 | Outpatient (BNV) | payer MEDICARE, MEDICAID, SELFPAY | PROVIDERS: Admitting Provider Student in an Organized Health Care Education/Training Program; Emergency Provider Emergency Medicine; PCP Internal Medicine; Visit Provider Internal Medicine Cardiovascular Disease | DX: R06.02 Shortness of breath (principal) | CPT/HCPCS: 93010 ==

== ENCOUNTER → 2024-10-30 19:11 | Outpatient (BNV) | payer OTHER, MEDICAID, SELFPAY | PROVIDERS: Admitting Provider Student in an Organized Health Care Education/Training Program; Emergency Provider Emergency Medicine; PCP Internal Medicine; Visit Provider Surgery Vascular Surgery | DX: I82.412 Acute embolism and thrombosis of left femoral vein (principal) | CPT/HCPCS: 37187; 37248; 76937; 99152; 99222; 99232; 99499 ==

== ENCOUNTER → 2024-10-30 19:11 | Outpatient (BNV) | payer MEDICARE, MEDICAID, SELFPAY | PROVIDERS: Admitting Provider Student in an Organized Health Care Education/Training Program; Emergency Provider Emergency Medicine; PCP Internal Medicine; Visit Provider Hospitalist | DX: R91.8 Other nonspecific abnormal finding of lung field (principal); I82.412 Acute embolism and thrombosis of left femoral vein; R59.1 Generalized enlarged lymph nodes | CPT/HCPCS: 99223 ==

== ENCOUNTER → 2024-10-30 19:11 | Outpatient (BNV) | payer OTHER, MEDICAID, SELFPAY | PROVIDERS: Admitting Provider Student in an Organized Health Care Education/Training Program; Emergency Provider Emergency Medicine; PCP Internal Medicine; Visit Provider Student in an Organized Health Care Education/Training Program | DX: I82.412 Acute embolism and thrombosis of left femoral vein (principal) | CPT/HCPCS: 99223; 99239; G0180 ==

== ENCOUNTER → 2024-10-30 19:11 | Outpatient (BNV) | payer MEDICARE, MEDICAID, SELFPAY | PROVIDERS: Admitting Provider Student in an Organized Health Care Education/Training Program; Emergency Provider Emergency Medicine; PCP Internal Medicine; Visit Provider Internal Medicine Medical Oncology | DX: I82.412 Acute embolism and thrombosis of left femoral vein (principal); R91.8 Other nonspecific abnormal finding of lung field | CPT/HCPCS: 99222 ==

== ENCOUNTER 2024-11-26 11:03 | Outpatient (AMB) | payer MEDICARE, MEDICAID, SELFPAY ==
--- NOTE | 2024-11-26 11:05 | A.OFFVIS_ITS ---
Intake Visit Reasons: 2w follow up s/p Thrombectomy 10/31/24 Intake Note: 2 week follow up Left thrombectomy 10/31/24. Pt states he is doing okay. Accompanied by: Self / Same As Patient Allergies No Known Allergies Allergy (Verified 11/26/24 11:09) HPI HPI 2w follow up s/p Thrombectomy 10/31/24: Details: The patient is a 69-year-old male presenting with follow-up from a deep venous thrombectomy of the left lower extremity. The thrombectomy was conducted on 10/31/2024. Post-operative recovery included a significant reduction in edema of the affected leg. The patient is on Eliquis for anticoagulation therapy. The patient reports ongoing mild swelling and fatigue in the left lower extremity, associated with a separate knee issue which he intends to manage with a brace. The discussed management includes compliance with medication and exploring adjunctive measures such as compression stockings to prevent chronic venous insufficiency effects. [facility] Medical History Lymphadenopathy Depression COPD (chronic obstructive pulmonary disease) Fibromyalgia Surgical History H/O right wrist surgery Social History Household Members: None Housing: Apartment Do you presently have visiting nurse or other home services: No Alcohol intake: current Alcohol intake frequency: does not drink Patient Tobacco Use Status: Current everyday Tobacco user Tobacco use type: Cigarette Cigarettes Per Day: 5 Second Hand Smoke Exposure: No Substance Use Type: Marijuana service: No Current occupational status: retired Review of Systems Const All systems reviewed & are unremarkable except as noted in HPI and below Reports no additional complaints ENT Reports Normal hearing present Card Denies chest pain, Denies chest pain at rest, Denies chest pain with activity and Denies pedal edema Resp Denies cough GI Denies abdominal pain Musc Denies abnormal gait, Denies muscle cramps and Denies radiating pain into limb Skin/Breast Denies skin ulcer and Denies wounds Neuro Reports Normal hearing present and Denies abnormal gait Psych Reports no additional complaints Physical Exam Const General: cooperative, healthy appearing and comfortable Orientation/consciousness: oriented to person, oriented to place and oriented to time HEENT Head: Yes normal to inspection Neck Neck: Yes normal visual inspection Carotids: no bruits Chest Chest palpation & inspection: normal inspection of the chest Resp Effort & Inspection: normal respiratory effort and able to speak in complete sentences Auscultation: clear to auscultation bilaterally, no crackles, no rales, no rhonchi and no wheezes Cardio Rate: regular rate Rhythm: regular rhythm Heart sounds: S1 normal heart sound present and S2 normal heart sound present Bruits: no carotid bruits Peripheral pulses: Peripheral pulses 2+ throughout GI Inspection: Yes normal to inspection Skin Wounds: no wounds Hair: normal Neuro General: oriented to person, oriented to place and oriented to time Cranial nerves: Yes CN's II-XII intact bilaterally and Yes Normal hearing present Cognition (Neuro): normal cognition Motor exam (neuro): 5/5 motor strength present throughout Extrem Other: venous exam: +2 edema bilaterally, left leg stitch removed General: No clubbing, No cyanosis and Yes edema Psych Appearance: grossly normal Mental Status: mental status grossly normal Speech and movement: Normal speech and movement present Assessment & Plan Assessment & Plan (1) DVT (deep venous thrombosis): Comment: 10/31/2024 - left leg mechanical venous thrombectomy Code(s): I82.409 - Acute embolism and thrombosis of unspecified deep veins of unspecified lower extremity Category: Medical Qualifiers: Affected thrombotic vein of extremity: femoral Chronicity: acute DVT location: lower extremity Laterality: left Qualified Code(s): I82.412 - Acute embolism and thrombosis of left femoral vein Plan: I discussed the patient's progress following the deep venous thrombectomy, acknowledging the successful reduction in leg swelling and the patient's ongoing concerns regarding the residual swelling and knee pain. Adherence to Eliquis was emphasized to prevent recurrence of thrombosis. I informed the patient of the role compression stockings play in enhancing venous return and reducing edema. Post-operative considerations and general preventative measures were reviewed, underscoring the importance of maintaining mobility and elevating the legs periodically. Patient will follow up with us on an as-needed basis. Thank you for allowing us to assist in his care. Plan Patient was informed and verbally consented to the use of an ambient scribe for clinic note documentation during this visit. Patient Instructions: - Continue taking Eliquis as prescribed to manage DVT. - Wear compression stockings to help reduce swelling in the legs. - Maintain leg elevation during periods of rest to assist with venous return. - Engage in regular walking to promote circulation. - The bandage applied for stitch removal can be taken off the following day. - Follow-up with primary care and observe for signs of increasing pain, swelling, or potential complications. Coding Level of Care Code Est Pt Level 3 (53884) Diagnoses DVT (deep venous thrombosis) I82.412 Affected thrombotic vein of extremity: femoral Chronicity: acute DVT location: lower extremity Laterality: left
--- OUTSIDE RECORDS SUMMARY | 2024-11-26 13:38 | XMS_ITS | Encounter Summary ---
Author Organization [facility] Address [address] [place] [address] Care Team Providers Care Car Sander Name Role Phone Dima Beauchamp MD Primary Care Provider [phone] Reason for Visit * Reason Onset Date Comments VNA Order 11/21/2024 Missed Visit 10/19 03/12 Encounter Details Date Type Department Care Team (Late st Contact Info) Description 11/21/2024 Telephone Adult Medicine [address] [phone] Dima Beauchamp MD [address] [place] [phone] VNA Order (Missed Visit 11/03/24) Social History Tobacco Use Types Packs/Day Years [...] on file Sexual Orientation Not on file documented as of this encounter Progress Notes * Leti Ko - 11/21/2024 1:10 PM EST Faxed orders received from Zeynep JOHNSON. Please review, sign, and fax back to [phone]. documented in this encounter Plan of Treatment Upcoming Encounters Date Type Department Care Team (Late st Contact Info) Description 12/03/2024 10:30 AM EDT Office Visit Adult Medicine [facility] [address] [place] [address] Dima Beauchamp MD [address] [place] [address] 12/04/2024 10:00 AM EDT Clinical Support Lung Screening Program - [place] 299 [facility] [address] [place] [address] 12/04/2024 10:30 AM EDT Appointment [facility] CT Scan [address] [place] [address] 01/29/2025 1:00 PM EDT Office Visit Pulmonolgy - [place] 175 [facility] [address] [place] [address] Anshul Magallanes MD 175 [facility] [address] [place] [address] documented as of this encounter Visit Diagnoses Not on filedocumented in this encounter Care Teams Car Sander Relationship Specialty Start Date End Date Dima Beauchamp MD [address] [place] [address] PCP - General Internal Medicine 07/23/24 documented as of this encounter
--- OUTSIDE RECORDS SUMMARY | 2024-11-26 13:38 | XMS_ITS | Encounter Summary ---
Author Organization [facility] Address [address] [place] [address] Care Team Providers Care Personal Health Coach Name Role Phone Dima Beauchamp MD Primary Care Provider [phone] Reason for Visit * Reason Onset Date Comments vna 11/05/2024 Encounter Details Date Type Department Care Team (Late st Contact Info) Description 11/05/2024 Telephone Adult Medicine [address] [phone] Eduar Stout LPN vna Social History Tobacco Use Types Packs/Day Years [...] as of this encounter Progress Notes * Eduar Stout LPN - 11/05/2024 11:34 AM EST Vo given to Tonia * Dima Beauchamp MD - 11/05/2024 10:13 AM EST Please give the VO * Eduar Stout LPN - 11/05/2024 8:39 AM EST Tonia from [facility] called requesting VO for nursing and PT Please review and advise Please send response to nurse triage [facility] follow up booked for 12/03/24 documented in this encounter Plan of Treatment Upcoming Encounters Date Type Department Care Team (Late st Contact Info) Description 12/03/2024 10:30 AM EDT Office Visit [facility] [address] [place] [phone] Dima Beauchamp MD [address] [place] [address] 12/04/2024 10:00 AM EDT Clinical Support Lung Screening Program - [place] 299 [facility] [address] [place] [address] 12/04/2024 10:30 AM EDT Appointment [facility] CT Scan [address] [place] [address] 01/29/2025 1:00 PM EDT Office Visit Pulmonolgy - [place] 175 [facility] [address] [place] [address] Anshul Magallanes MD 175 [facility] [address] [place] [address] documented as of this encounter Visit Diagnoses Not on filedocumented in this encounter Care Teams Personal Health Coach Relationship Specialty Start Date End Date Dima Beauchamp MD [address] [place] [address] PCP - General Internal Medicine 07/23/24 documented as of this encounter
--- OUTSIDE RECORDS SUMMARY | 2024-11-26 13:38 | XMS_ITS | Encounter Summary ---
Author Organization [facility] Address [address] [place] [address] Care Team Providers Care Transmission Design Engineer Name Role Phone Dima Beauchamp MD Primary Care Provider [phone] Reason for Visit * Reason Onset Date Comments Follow-up 11/08/2024 Encounter Details Date Type Department Care Team ([facility] st Contact Info) Description 11/08/2024 Telephone [facility] [address] [address] Anshul Magallanes MD 175 [facility] [address] [place] [address] Follow-up Social History Tobacco Use Types Packs/Day Years [...] as of this encounter Progress Notes * Farida Diehl MA - 11/13/2024 9:18 AM EST Lvm to call back the offe 3rd attemp letter sent to patient * Jordin Mcmullen MA - 11/12/2024 3:12 PM EST Second attempt * Jordin Mcmullen MA - 11/12/2024 12:58 PM EST Left voice mail to schedule pt. I received [facility] report. * Jordin Mcmullen MA - 11/11/2024 8:37 AM EST Attempt to call pt. Voice mail full. * Reji Orona - 11/08/2024 10:55 AM EST Called received from [facility] pulmonology department requesting our fax number to send follow up request received by [facility]. Patient was seen at [facility] in which abnormal findings were found in a abdomen pelvis ct. Advice to follow up with employee benefits administrator sooner than his already scheduled appointment. Please advice. documented in this encounter Plan of Treatment Upcoming Encounters Date Type Department Care Team (Late st Contact Info) Description 12/03/2024 10:30 AM EDT Office Visit Adult Medicine [address] [phone] Dima Beauchamp MD [address] [place] [address] 12/04/2024 10:00 AM EDT Clinical Support Lung Screening Program - [place] 299 [facility] [address] [place] [phone] 12/04/2024 10:30 AM EDT Appointment [facility] CT Scan [address] [place] [phone] 01/29/2025 1:00 PM EDT Office Visit Pulmonolgy - [place] [address] [facility] [address] [place] [phone] Anshul Magallanes MD [address] [facility] [address] [facility] [address] [place] [address] documented as of this encounter Visit Diagnoses Not on filedocumented in this encounter Care Teams Transmission Design Engineer Relationship Specialty Start Date End Date Dima Beauchamp MD [address] [place] [address] PCP - General Internal Medicine 07/23/24 documented as of this encounter
--- OUTSIDE RECORDS SUMMARY | 2024-11-26 13:38 | XMS_ITS | Encounter Summary ---
Author Organization [facility] Address [address] [place] [address] Care Team Providers Care Control Systems Drafting Officer Name Role Phone Dima Beauchamp MD Primary Care Provider [phone] Reason for Visit * Reason Onset Date Comments PT1 11/04/2024 Encounter Details Date Type Department Care Team (Late st Contact Info) Description 11/04/2024 Telephone Adult Medicine [address] [phone] Dima Beauchamp MD [address] [place] [address] PT1 Social History Tobacco Use Types Packs/Day Years [...] on file documented as of this encounter Ordered Prescriptions Prescription Sig Dispense Quantity Refills Last Filled Start Date End Date QUEtiapine (SEROquel) 100 mg tablet Take 1 tablet (100 mg total) by mouth at bedtime. 30 each 2 11/05/2024 02/03/2025 ipratropium-albute roL (Combivent Respimat) 20-100 mcg/actuation inhaler Inhale 1 puff by mouth every 4 (four) hours if needed for wheezing. 1 each 5 11/05/2024 05/04/2025 benazepriL (LOTENSIN) 10 mg tablet Take 1 tablet (10 mg total) by mouth at bedtime. at bedtime. 30 tablet 11/05/2024 02/03/2025 documented in this encounter Progress Notes * Erika Veloz LPN - 11/07/2024 8:21 AM EST PT [address] Beauchamp 12 visits yearly Tracking # [id number] * Kavin Andrade - 11/06/2024 1:45 PM EST [employer] new provider or submitter number is [id number] Verify and document patients [place] Health insurance ID # (NOT [facility] ID): [id number] Payor: BRIAN - MEDICARE / Plan: MEDICARE FFS $0 [place] [id number] / Product Type: MEDICARE [id number] Patient mailing address: [address] [place] [address] Telephone Information: Home Phone Not on file. Pt. demographics verified? YES If not accurate, update registration. Is this a NEW request or a RENEWAL? RENEWAL Name of treating facility: [facility] Name (first & last) of treating provider? required : Dima Beauchamp What is the medical reason why the patient is seeing the above provider? FOLLOW-UP Address/Zip code for treating provider: [address] [place] [address] Phone # for treating provider: [phone] Is the provider in the [facility] network (do they accept [place] Health insurance)? YES What specialtly is this provider? PRIMARY CARE PROVIDER When is the visit scheduled for? 12/03/2024 How often you will be seeing this particular provider? 16 times TIMES A YEAR Do you have friends or family who can transport you to this visit? NO If yes, do not complete request. Is there anything stopping you from using public transportation? If yes, explain. : YES Is there a medical reason (diagnosis) why you are unable to use public transportation? If yes, explain: yes - unable to walk to bus stop, limited mobility Does patient carry self-administered oxygen? NO Does patient require door through door or room to room service( ex: member cannot ambulate or wait independently outside their home/facility for transportation. NO Is this is for an Adult Day Program or Suboxone clinic no If yes to above what is arrival time and what is departure time If yes to above how many days a week? Do you need a wheelchair van? NO If you use a wheelchair what is the height, width & length of the wheelchair? Do you need an escort to accompany you? If yes, explain why. NO Will you have an alternative pick-up address? NO Do you have a service animal? NO PT DOES NOT NEED RELEASE OF INFORMATION SIGNED * Erika Veloz LPN - 11/05/2024 2:27 PM EST BSR, please call pt and ask the appropriate questions for PT 1 form and then send to me for submission. Thank you * Dinorah Fung RN - 11/05/2024 10:43 AM EST Called pt and informed him Dr. Beauchamp refilled his medications as requested. He states his PT1 has lapsed and he is in need of transportation to his hospital follow up appointment on 12/03/24 at 10:[address] Beauchamp. * Dima Beaucahmp MD - 11/04/2024 6:15 PM EST Can we please schedule at my next open hospital follow up spot And does he need a refill for something? * Idania Goddard - 11/04/2024 2:11 PM EST Hospital/ER follow up appointment needed Hospital patient was treated at: [facility] Was this only an ER visit or was the patient admitted to the hospital? Admitted to the hospital/kept overnight Date of visit if ER visit only: If patient was admitted what was the date of discharge? 11/01/24 Reason/diagnosis for visit or stay: edema, blood clot in leg When was the patient told to follow up? KAILEY Was visit or stay related to an injury? If yes, what was the date of injury (DOI)? No If yes, was the injury due to: Not 3rd democrat related documented in this encounter Plan of Treatment Upcoming Encounters Date Type Department Care Team (Late st Contact Info) Description 12/03/2024 10:30 AM EDT Office Visit Adult Medicine [facility] [address] [place] [phone] Dima Beauchamp MD [address] [place] [address] 12/04/2024 10:00 AM EDT Clinical Support Lung Screening Program - [place] 299 [facility] [address] [place] [phone] 12/04/2024 10:30 AM EDT Appointment [facility] CT Scan [address] [place] [address] 01/29/2025 1:00 PM EDT Office Visit Pulmonolgy - [place] 175 [facility] [address] [place] [address] Anshul Magallanes MD 175 [facility] [address] [place] [address] documented as of this encounter Visit Diagnoses Not on filedocumented in this encounter Discontinued Medications Medication Sig Discontinue Reason Start Date End Da te QUEtiapine (SEROquel) 100 mg tablet Take 1 tablet (100 mg total) by mouth at bedtime. Reorder 03/07/2024 11/05/2024 ipratropium-albuteroL (Combivent Respimat) 20-100 mcg/actuation inhaler Inhale 1 Puff into the lungs every 4 hours as needed (EMERGENCY USE ONLY - wheezing/shortness of breath). Reorder 11/29/2023 11/05/2024 benazepriL (LOTENSIN) 10 mg tablet TAKE 1 TABLET BY MOUTH AT BEDTIME Reorder 09/27/2024 11/05/2024 documented as of this encounter Care Teams Control Systems Drafting Officer Relationship Specialty Start Date End Date Dima Beauchamp MD [address] [place] [address] PCP - General Internal Medicine 07/23/24 documented as of this encounter
--- OUTSIDE RECORDS SUMMARY | 2024-11-26 13:38 | XMS_ITS | Clinical Summary ---
Author Organization 175 [facility] Address [address] [place] [address] Phone Care Team Providers Care Power Distribution Engineer Name Role Phone Dima Beauchamp MD Primary Care Provider [phone] Allergies No known active allergies Medications ibuprofen (ADVIL,MOTRIN) 800 mg tablet Take 1 tablet (800 mg total) by mouth 3 (three) times a week. 4 Active furosemide (LASIX) 20 mg tablet Take 1 tablet (20 mg total) by mouth 1 (one) time each day. 4 Active aspirin 81 mg EC tablet Take 1 tablet (81 mg total) by mouth 1 (one) time each day. 4 Active methadone (DOLOPHINE) 10 mg tablet Take 7 Tablets by mouth daily as needed. 2 Active valACYclovir (VALTREX) 500 mg tablet Take 1 tablet (500 mg total) by mouth 1 (one) time each day. 1 Active benazepriL (LOTENSIN) 10 mg tablet Take 1 tablet (10 mg total) by mouth at bedtime. at bedtime. 30 tablet 5 02/04/20 25 Active ipratropium-alb uteroL (Combivent Respimat) 20-100 mcg/actuation inhaler Inhale 1 puff by mouth every 4 (four) hours if needed for wheezing. 1 each 5 5 05/04/20 25 Active QUEtiapine (SEROquel) 100 mg tablet Take 1 tablet (100 mg total) by mouth at bedtime. 30 each 2 5 02/04/20 25 Active QUEtiapine (SEROquel) 100 mg tablet Take 1 tablet (100 mg total) by mouth at bedtime. 4 11/05/19 25 Discontinu ed(Reorder ) ipratropium-alb uteroL (Combivent Respimat) 20-100 mcg/actuation inhaler Inhale 1 Puff into the lungs every 4 hours as needed (EMERGENCY USE ONLY - wheezing/maddie rtness of breath). 4 11/05/19 25 Discontinu ed(Reorder ) benazepriL (LOTENSIN) 10 mg tablet TAKE 1 TABLET BY MOUTH AT BEDTIME 30 tablet 5 11/05/19 25 Discontinu ed(Reorder ) Active Problems Problem Noted Date Diagnosed Date [...] Encounters Date Type Department Care Team Description 11/21/2024 Telephone Adult Medicine [facility] [address] [place] [address] Dima Beauchamp MD faxed order (Zeynep [facility] order [id number]) 11/21/2024 Telephone Adult Medicine [address] [address] Dima Beauchamp MD VNA Order (Missed Visit 11/03/24) 11/08/[address] [phone] Anshul Magallanes MD Follow-up 11/06/2024 Nurse Triage Adult [address] [phone] Dima Beauchamp MD triage (Please call VNA nurse ) 11/05/2024 Telephone Adult [address] [phone] Eduar Stout LPN vna 11/04/[address] [address] Dima Beauchamp MD PT1 09/24/2024 11:30 AM EST Ancillary Procedure Pulmon[address] [address] Jaime Joaquin Chronic bronchitis with emphysema (CMS/HCC); Chronic obstructive pulmonary disease, unspecified COPD type (CMS/HCC) 09/24/2024 11:00 AM EST Consult Pul[address] [address] Anshul Magallanes MD Chronic bronchitis with emphysema [...] COMMENT: internal fixation 2005 ESOPHAGOGASTRODUODENOSCOPY 10/06/11 PROCEDURE: MT ESOPHAGOGASTRODUODENOSCOPY TRANSORAL DIAGNOSTIC; COMMENT: normal; without varices; repeat in 2 yrs COLONOSCOPY 10/06/11 PROCEDURE: HISTORICAL COLONOSCOPY; COMMENT: adenoma; repeat in 3 years Medical History Medical History Date Comments Anxiety DX:Anxiety; COMM ENT: follows with psych [facility] Opioid abuse ([facility]) DX:Opioid abuse ([facility]); COMMENT: pt is on daily methadone Fibromyalgia DX:Fibromyalgia Chronic bronchitis with emph ysema ([facility]) 02/18/2014 DX:Chronic bronchitis with emphysema ([facility]) Gastroesophageal reflux disease 06/10/2020 DX:Gastroesophageal reflux disease [...] 10:30 AM EDT Office Visit Adult Medicine [facility] [address] [place] [address] Dima Beauchamp MD [address] [place] [address] 12/04/2024 10:00 AM EDT Clinical Support Lung Screening Program - [place] 299 [facility] [address] [place] [address] 12/04/2024 10:30 AM EDT Appointment [facility] CT Scan [address] [place] [address] 01/29/2025 1:00 PM EDT Office Visit Pulmonolgy - [place] 175 [facility] [address] [place] [phone] Anshul Magallanes MD 175 [facility] [address] [place] [address] Health Maintenance Due Date Last Done Comments Hepatitis A Vaccines (2 of 2 - Risk 2-dose series) 01/13/2012 07/14/2011 Hepatitis B Vaccines (1 of 3 - Risk 3-dose series) 2013 RSV Immunization Patients 60 + Years Old (1 - Risk 60-74 years 1-dose series) 2013 Zoster Vaccines (3 of 3) 03/30/2019 019, 07/03/2014 Abdominal Aortic Aneurysm (AAA) Screen [...] patient's age to complete this topic Meningococcal B Vacine Aged Out No lo nger eligible based on patient's age to complete this topic RSV Immunization Patients Under 20 months Aged Out No longer eligible b ased on patient's age to complete this topic Varicella Vaccines Aged Out No longer eligible based on patient's age to complete this topic Procedures Procedure Name Priority Date/Time Associated Diagnosis Comments EXTERNAL CT REPORT 10/30/2024 PULMONARY FUNCTION TESTING Routine 09/24/2024 11:48 AM EST Chronic bronchitis with emphysema (CMS/HCC) Chronic obstructive pulmonary disease, unspecified COPD type (CMS/HCC) DEPRESSION SCREENING Routine 03/07/2024 ANNUAL BMP BLOOD TEST Routine 01/30/2024 LIPID PANEL Routine 01/30/2024 HEPATITIS C SCREENING Routine 01/17/2019 from Last 3 Months or Most Recently Relevant to Health Maintenance Results * External CT Report (10/30/2024) Anatomical Region Laterality Modality Computed Tomogra phy Result [facility] PROCEDURES Final Result * Pulmonary function testing: Carbon Monoxide Diffusing Capacity, Nitrogen Wash Out, Spirometry with Bronchodilator (09/24/2024 11:48 AM EST) Impressions Haven Laureano MD - 09/24/2024 11:48 AM EST FEV1/FVC 83%. FEV1 2.25 at 87%. FVC 76%. No bronchodilator response. TLC of 109%. RV 146%. DLCO 51% (adjusted 55%). Mild obstruction. ??No restriction. ??Moderate decrease in diffusion. Finding consistent with mild obstructive lung disease. Result [facility] Anshul Magallanes MD PFT ORDERABLES Final Result * Depression Screening (03/07/2024) [facility] Depression Screening abstracted Result [facility] Giulia [facility] [employer]INTENANCE Final Result * Annual BMP Blood Test (01/30/2024) [facility] Annual BMP Blood Test abstracted Result [facility] Giulia [employer] MAINTENANCE Final Result * (ABNORMAL) Lipid panel (01/30/2024) [facility] LDL/HDL Ratio 3 0 - 4 Triglycerides 80 0 - 150 mg/dL Cholesterol 184 0 - 200 mg/dL HDL 60 >=40 mg/dL LDL Cholesterol 108(A) 0 - 100 mg/dL Blood Venous blood specimen / Unknown Result [facility] Giulia ANTONY LAB BLOOD ORDERABLES Nena l Result * Hepatitis C Screening (01/17/2019) [facility] Hepatitis C Screening abstracted Result [facility] Giulia [employer]INTE[employer]NCE Final Result from Last 3 Months or Most Recently Relevant to Health Maintenance Insurance MEDICAID - [place] [employer] MEDICARE Care Teams Power Distribution Engineer Relationship Specialty Start Date End Date Dima Beauchamp MD [address] [place] [id number] PCP - General Internal Medicine 07/23/24
--- OUTSIDE RECORDS SUMMARY | 2024-11-26 13:39 | XMS_ITS | Encounter Summary ---
Author Organization [facility] Address [address] [place] [address] Care Team Providers Care Crabbing Machine Operator Name Role Phone Dima Beauchamp MD Primary Care Provider [phone] Reason for Visit * Reason Onset Date Comments triage 11/06/2024 Please call VNA nurse Encounter Details Date Type Department Care Team (Late st Contact Info) Description 11/06/2024 Nurse Triage Adult Medicine [address] [phone] Dima Beauchamp MD [address] [place] [phone] triage (Please call VNA nurse ) Social History Tobacco Use Types Packs/Day Years [...] as of this encounter Progress Notes * Dima Beauchamp MD - 11/06/2024 11:17 AM EST Perfect and thank you * Dinorah Fung RN - 11/06/2024 11:05 AM EST Called pt and informed him per Dr. Beauchamp; As discussed pressure high but pt missed dose of his benazepril, pt is asymptomatic pt just took the med an hour ago No specific intervention at this time. Please make sure pt is aware of red flags such as chest pain,dizziness headache or shortness of breath if he develops these symptoms he is to go to the ER. If the VNA can come back tomorrow to check his bp that would be great Pt states he has an automatic cuff at home and will be checking his BP every hour today and recording it. He will take his Benazepril at bedtime tonight. He will go to the ER if he develops any new or worsening symptoms including but not limited to chest pain, dizziness, headache or shortness of breath. Called and spoke to Tiara at and informed her of the above as well. She states she will be going to pt's home tomorrow for a PRN visit to recheck his BP. * Dima Beauchamp MD - 11/06/2024 10:56 AM EST As discussed pressure high but pt missed dose of his benazepril, pt is asymptomatic pt just took the med an hour ago No specific intervention at this time. Please make sure pt is aware of red flags such as chest pain,dizziness headache or shortness of breath if he develops these symptoms he is to go to the ER. If the VNA can come back tomorrow to check his bp that would be great * Whit Ny RN - 11/06/2024 10:53 AM EST Called tiara JOHNSON she stated she spoke [place] practice nurse Dinorah DEXTER already * Dinorah Fung RN - 11/06/2024 10:50 AM EST Reason for Disposition ? ? [1] Systolic BP >= 180 OR Diastolic >= 110 AND [2] missed most recent dose of blood pressure medication Answer Assessment - Initial Assessment Questions 1. BLOOD PRESSURE: What is your blood pressure? Did you take at least two measurements 5 minutesapart? 196/96, 186/86, 180/90 2. ONSET: When did you take your blood pressure? Today at 10:30 am 3. HOW: How did you take your blood pressure? (e.g., automatic home BP monitor, visiting nurse) Visiting nurse 4. HISTORY: Do you have a history of high blood pressure? Yes 5. MEDICINES: Are you taking any medicines for blood pressure? Have you missed any doses recently? Benzapril 10 mg at HS. He did not take this medication last night. He took it approximately 1 hour ago. 6. OTHER SYMPTOMS: Do you have any symptoms? (e.g., blurred vision, chest pain, difficulty breathing, headache, weakness) No symptoms 7. : Is there any chance you are ? When was your last menstrual period? No. Pt is a male. He was in hospital for blood clot in left leg. He is on Eliquis. Swelling has improved. No redness or temp change. Protocols used: Blood Pressure - High-A-AH * Eduar Stout LPN - 11/06/2024 10:41 AM EST See message from ALEX needs a call back * Yoanna Ram - 11/06/2024 10:31 AM EST Idania JOHNSON is calling. States she is with the patient at his home and is reporting very high blood pressure. She is asking to speak with a nurse. States patient is not having symptomshowever has had blood clots in past. She did two bp readings. 1st 196/104 and 186/86 documented in this encounter Plan of Treatment Upcoming Encounters Date Type Department Care Team (Late st Contact Info) Description 12/03/2024 10:30 AM EDT Office Visit Adult Medicine [facility] [address] [place] [address] Dima Beauchamp MD [address] [place] [address] 12/04/2024 10:00 AM EDT Clinical Support Lung Screening Program - [place] 299 [facility] [address] [place] [address] 12/04/2024 10:30 AM EDT Appointment [facility] CT Scan [address] [place] [address] 01/29/2025 1:00 PM EDT Office Visit Pulmonolgy - [place] 175 [facility] [address] [place] [address] Anshul Magallanes MD 175 [facility] [address] [place] [address] documented as of this encounter Visit Diagnoses Not on filedocumented in this encounter Care Teams Crabbing Machine Operator Relationship Specialty Start Date End Date Dima Beauchamp MD [address] [place] [id number] PCP - General Internal Medicine 07/23/24 documented as of this encounter
--- OUTSIDE RECORDS SUMMARY | 2024-11-26 13:39 | XMS_ITS | Encounter Summary ---
Author Organization [facility] Address [address] [place] [address] Care Team Providers Care Software Development Leader Name Role Phone Dima Beauchamp MD Primary Care Provider [phone] Reason for Visit * Reason Onset Date Comments faxed order 11/21/2024 Zeynep JOHNSON orde r [id number] Encounter Details Date Type Department Care Team (Late st Contact Info) Description 11/21/2024 Telephone Adult Medicine [address] [phone] Dima Beauchamp MD [address] [place] [phone] faxed order (Zeynep JOHNSON order [id number]) Social History Tobacco Use Types Packs/Day Years [...] as of this encounter Progress Notes * Yoanna Ram - 11/21/2024 3:06 PM EST Faxed orders received from [place] [facility]. Please review, sign, and fax back to [phone]. - order#[id number] documented in this encounter Plan of Treatment Upcoming Encounters Date Type Department Care Team (Late st Contact Info) Description 12/03/2024 10:30 AM EDT Office Visit Adult Medicine [facility] [address] [place] [address] Dima Beauchamp MD [address] [place] [phone] 12/04/2024 10:00 AM EDT Clinical Support Lung Screening Program - [place] 299 [facility] [address] [place] [address] 12/04/2024 10:30 AM EDT Appointment [facility] CT Scan [address] [place] [phone] 01/29/2025 1:00 PM EDT Office Visit Pulmonolgy - [place] 175 [facility] [address] [place] [address] Anshul Magallanes MD 175 [facility] [address] [place] [address] documented as of this encounter Visit Diagnoses Not on filedocumented in this encounter Care Teams Software Development Leader Relationship Specialty Start Date End Date Dima Beauchamp MD [address] [place] [phone] PCP - General Internal Medicine 07/23/24 documented as of this encounter
== END 2024-11-26 11:26 | disposition home or self-care (01) ==
LOC: HO.HVS 11:03
PROVIDERS: PCP Internal Medicine; Visit Provider Surgery Vascular Surgery
DX: I82.412 Acute embolism and thrombosis of left femoral vein (principal)
CPT/HCPCS: 99213

== ENCOUNTER → 2024-11-26 11:03 | Outpatient (BNVA) | payer MEDICARE, MEDICAID, SELFPAY | PROVIDERS: PCP Internal Medicine; Visit Provider Surgery Vascular Surgery | DX: I82.412 Acute embolism and thrombosis of left femoral vein (principal) | CPT/HCPCS: 99212 ==

== ENCOUNTER 2024-12-30 08:44 | Emergency (ER) | payer MEDICARE, MEDICAID, SELFPAY ==
--- NOTE | ~2024-12-30 | CT_ITS ---
EXAMINATION: CT SOFT TISSUE NECK WITH CONTRAST CLINICAL INFORMATION: Right sided neck swelling, concern for abscess. COMPARISON: None available. TECHNIQUE: Following the intravenous administration of 60 mL of Omnipaque 350 intravenous contrast, helical imaging was performed in the axial plane with generation of coronal and sagittal reformatted images. This CT examination was performed using dose optimization techniques as appropriate, variously including the following: *Automated exposure control *Adjustment of mA and/or kV according to patient size (this includes techniques or standardized protocols for targeted exams where dose is matched to indication/reason for exam; i.e. extremities or head) *Use of iterative reconstruction technique FINDINGS: Lymph Nodes: There is abnormal lymphadenopathy present within the neck and superior mediastinum. Abnormal lymph nodes also suspected within both parotid glands. For example, a partially low attenuating irregular mass inferior left parotid gland measures 2.1 x 1.7 x 2.5 cm (series 3, image 50). A irregular partially low attenuating mass in the right superficial inferior parotid measures 1.6 x 1.3 x 1.3 cm (series 3, image 46). These are suspected to be lymph nodes. A level 5 lymph node on the right, just deep to the clavicle measures 1.2 cm in short axis (series 3, image 82). Abnormal for a lymph node just to the right of the thyroid gland measures 1.0 cm in short axis and has an elongated appearance extending into the mediastinum, measuring up to 1.1 cm (series 3, image 86). A right pretracheal lymph node measures 2.0 x 2.4 cm (series 3, image 107). An infiltrative appearing mass is present within the right superior mediastinum abutting the trachea, just deep to the azygos vein, with some degree of mass effect upon the SVC, measuring 2.9 x 3.9 x 4.7 cm (series 3, image 116). A right posterior paratracheal lymph node measures 1.3 cm short axis (series 3, image 103). Carotid Sheath Structures: -Mild to moderate atheromatous calcification of the carotid bulb bilaterally. No significant luminal stenosis. Patent internal jugular veins.. Salivary Glands: -As above. Otherwise the parotids are fatty replaced. Submandibular glands and sublingual glands appear normal.. Tongue Base/Floor of Mouth: -Normal Mucosal Space: - Normal. Visceral Space: -Thyroid gland: Normal. -Normal. Retropharangeal Space: - Normal. Parapharyngeal Fat Planes: -Normal. Network Liaison Spaces: -Normal. Anterior Cervical Space: -Normal. Imaged Intracranial Contents: -No mass effect, edema, or abnormal enhancement. Cortical and dural venous sinuses are patent. The skull base is normal. Globes and Orbits: -Normal. Paranasal Sinuses/Mastoids/Tympanic Spaces: -Normally aerated bilaterally. Lung Apices and Superior Mediastinal Structures: As above. There is diffuse centrilobular and paraseptal emphysema. Within the right upper lobe, abutting the pleura, there is an irregular spiculated appearing consolidative mass measuring 2.6 x 3.2 x 2.6 cm (series 3, image 116), highly suspicious. No pneumothorax or pleural effusion. Bony Structures: -No suspicious bone lesions. No fractures. -Degenerative changes throughout the spine. -Normal TM joints. CT/CT soft tissue neck w IV con IMPRESSION: 1. Abnormal lymphadenopathy within the inferior neck and superior mediastinum, as well as involving both parotid glands left greater than right. The palpable focus of concern appears to be related to a intraparotid mass, likely a lymph node. Low attenuation in the parotid masses/nodes highly suggests partial necrosis. These are felt to represent metastatic lymph nodes. 2. Infiltrative appearing right superior mediastinal mass just posterior to the SVC measuring 2.9 x 3.9 x 4.7 cm. 3. Lateral right upper lobe irregular spiculated consolidative mass measuring 2.6 x 3.2 x 2.6 cm, highly suspicious for index neoplasm. Given these findings, CT of the chest recommended to further assess. 4. There is moderate to severe centrilobular and paraseptal emphysema within the imaged lung apices. Electronically signed by: Marco A Lazar MD 12/30/2024 01:37 PM EDT
[2024-12-30 09:01] VITALS: BP 161/85; PULSE 96; RESP 18; TEMP 36.3; O2SAT 96; BMI 39.4
[2024-12-30 09:15] LABS: MANUAL DIFF FLAG NO
[2024-12-30 09:18] LABS: Basophils Percent Auto 0.4 % (0-2); Eosinophils Absolute Auto 0.2 X10*3/uL (0.0-0.4); Eosinophils Percent Auto 1.7 % (0-4); Hematocrit 45.1 % (42.0-52.0); Imm Gran Abs Auto 0.02 X10*3/uL (0.00-0.03); Imm Gran Pct Auto 0.2 % (0.0-0.4); Lymphocytes Absolute Auto 2.4 X10*3/uL (1.2-4.9); Lymphocytes Percent Auto 26.8 % (20-40); Mean Corpuscular HGB Conc 33.3 g/dl (31.0-36.0); Mean Corpuscular Hemoglobin 32.1 pg (27.0-33.0); Mean Corpuscular Volume 96.6 fL (80.0-98.0); Mean Platelet Volume 8.7 fL (9.4-12.4); Monocytes Absolute Auto 0.9 X10*3/uL (0.1-1.2); Neutrophils Absolute Auto 5.5 x10*3/uL (2.0-8.3); Neutrophils Percent Auto 60.9 % (45-73); Platelet Count 206 X10*3/uL (160-400); Red Blood Count 4.67 X10*6/uL (4.60-5.80); Red Cell Distribution Width 11.9 % (11.0-16.0)
[2024-12-30 09:30] LABS: Anion Gap 12 (12-20); Blood Urea Nitrogen 13 mg/dL (9-16); Calcium 9.4 mg/dL (8.4-10.2); Carbon Dioxide 27 mmol/L (22-29); Chloride 106 mmol/L (96-108); Creatinine Clr Calc Pharmacy 98.1; Estimated Glomerular Filt Rate > 60; Glucose Random 132 mg/dL (60-115); Potassium 3.9 mmol/L (3.3-5.1); Sodium 141 mmol/L (135-145)
--- NOTE | 2024-12-30 10:40 | ED.GENADULT ---
HPI - General Adult General Chief complaint: General Medical Stated complaint: ?Abscess R Side Jaw Line Time Seen by Provider: 12/30/24 10:40 Source: patient Mode of arrival: ambulatory Limitations: no limitations History of Present Illness ED Provider: Karlee Leon PA-C HPI narrative: Patient is a 69 year old assigned male at with a history of DVT, fibromyalgia, and right lung mass presenting to the emergency department today with a right sided neck / jaw lump. Patient states that in October of 2024 he was admitted here for a blood clot and probable lung cancer for which he is still awaiting confirmation. Patient states that since being discharged, he has had a right neck / jaw lump that is continuing to grow. Patient states that his lump does not hurt. Patient denies any dizziness, lightheadedness, abdominal pain, nausea, vomiting, fever, chills, blurry vision, double vision, loss of vision, chest pain, difficulty breathing, shortness of breath, back pain, night sweats, pain with urination, increased urinary frequency, increased urinary urgency, blood in his urine or stool, syncope or a near syncopal episode, recent trauma or falls, bowel incontinence, bladder incontinence, or any other complaints at this time. Onset (ago): month(s) (2) Location: neck and right Relieving factors: none Exacerbating factors: none Associated symptoms: denies other symptoms Treatments prior to arrival: none Related Data Home Medications ?Medication ?Instructions ?Recorded ?Confirmed methadone 10 mg/5 mL oral solution 70 mg PO DAILY 02/22/21 11/01/24 quetiapine 100 mg tablet (Seroquel) 100 mg PO BEDTIME 02/22/21 10/30/24 benazepril 10 mg tablet 10 mg PO BEDTIME 10/30/24 10/30/24 ipratropium 20 mcg-albuterol 100 1 puff inhalation Q4H PRN wheezing 10/30/24 10/30/24 mcg/actuation mist for inhalation (Combivent Respimat) Previous Rx's ?Medication ?Instructions ?Recorded acetaminophen 500 mg tablet 1,000 mg (2 x 500 mg) PO QID PRN 02/05/21 (Tylenol Extra Strength) fever or pain #14 tabs apixaban 5 mg tablet (Eliquis) 5 mg PO BID #208 tabs 11/01/24 nicotine 14 mg/24 hr daily 14 mg transdermal DAILY #28 ea 11/01/24 transdermal patch Allergies Allergy/AdvReac Type Severity Reaction Status Date / Time No Known Allergies Allergy Verified 12/30/24 09:05 Review of Systems Constitutional: Constitutional: Reports no additional constitutional complaints, Denies chills, Denies fever(s) and Denies night sweats Eyes: Eyes: Reports no additional eye complaints, Denies blurry vision, Denies change in vision, Denies diplopia, Denies eye discharge, Denies loss of vision and Denies eye pain ENT: Denies dizziness Comments: right sided neck lump Cardiovascular: Cardiovascular: Reports no additional cardiovascular complaints, Denies chest pain, Denies lightheadedness, Denies Loss of Consciousness and Denies dyspnea Respiratory: Respiratory: Reports no additional respiratory complaints and Denies dyspnea Gastrointestinal: Gastrointestinal: Reports no additional gastrointestinal complaints, Denies abdominal pain, Denies melena, Denies hematochezia, Denies change in bowel habits and Denies change in stool character Genitourinary: Genitourinary: Reports no additional male genitourinary complaints, Denies hematuria, Denies oliguria, Denies difficulty urinating, Denies dysuria, Denies urinary frequency, Denies urinary hesitancy, Denies urinary incontinence and Denies urinary urgency Musculoskeletal: Musculoskeletal: Reports no additional musculoskeletal complaints, Denies numbness and Denies tingling Neurologic: Denies dizziness, Denies loss of vision, Denies numbness and Denies tingling Psychiatric: Psychiatric: Reports no additional psychiatric complaints Endocrine: Endocrine: Reports no additional endocrine complaints Hematologic/Lymphatic: Hematologic/Lymphatic: Reports no additional hematologic/lymphatic complaints Allergic/Immunologic: Allergic/Immunologic: Reports no additional allergic/immunologic complaints [facility] Past Medical History Attestation statement: The following information was validated with the patient. Source: old records reviewed and nursing notes reviewed Medical History Lymphadenopathy Depression COPD (chronic obstructive pulmonary disease) Fibromyalgia Surgical History H/O right wrist surgery Social History Social History Household Members: None Housing: Apartment Do you presently have visiting nurse or other home services: No Alcohol intake: current Alcohol intake frequency: does not drink Patient Tobacco Use Status: Current everyday Tobacco user Tobacco use type: Cigarette Cigarettes Per Day: 5 Smoked in Last 30 Days: Yes Second Hand Smoke Exposure: No Substance Use Type: Former Substance User Advance Directives: No Advance Directives Information Provided: Yes service: No Current occupational status: retired Physical Exam ED Vital Signs: Vital Signs - 24 hr 12/30/24 09:01 12/30/24 12:09 Temperature 97.4 F 98.0 F Pulse Rate 96 84 Respiratory Rate 18 15 Blood Pressure 161/85 H 140/75 H Pulse Oximetry 96 97 Oxygen Delivery Method Room Air Room Air BMI result Body Mass Index 39.4 Const General: cooperative, no acute distress, alert and awake Nutritional Appearance: well nourished Orientation/consciousness: patient oriented x3 Limitations: no limitations HENMT Head: Yes normal to inspection and Yes atraumatic Ears: hearing grossly normal bilaterally and external ears normal General nose exam: Normal external nose present, no nasal discharge noted and no epistaxis Face and sinus: Yes normal facial exam, No abrasion and No laceration Mouth: Normal oral and palatal mucosa present, no drooling and no muffled voice Eyes General: appearance normal, both eyes and all related structures Periorbital: periorbital findings normal Eyelids: Yes eyelids normal Conjunctivae: conjunctivae normal Pupils: Equal, round and reactive pupils present EOM: EOMs intact bilaterally Neck Neck: Yes full ROM Neck images: 1. Hard, immobile, lump present - no tenderness to palpation Chest Chest palpation & inspection: normal inspection of the chest Resp Effort & Inspection: normal respiratory effort and able to speak in complete sentences GI Inspection: Yes normal to inspection Neuro General: patient oriented x3, moves all extremities and CN's II-XI intact bilaterally Cranial nerves: Yes Equal, round and reactive pupils present Cognition (Neuro): normal cognition Extrem General: Yes normal to inspection, Yes full ROM and Yes capillary refill normal Psych Appearance: grossly normal Mental Status: mental status grossly normal Affect: normal affect Attitude: cooperative Thought process: Normal thought process present Thought content: Normal thought content present Insight: Good insight present (Psych) Medications Administered Discontinued Medications Generic Name Dose Route Start Last Admin Trade Name Freq PRN Reason Stop Dose Admin Iohexol 100 ml 12/30/24 12:25 12/30/24 12:25 Iohexol 350 Mg/Ml 100 Ml Infus..Btl IV 12/30/24 12:26 60 ml ONCE ONE Administration Medical Decision Making Medical Decision Making [facility] Narrative: Patient is a 69 year old assigned male at with a history of tobacco use, DVT, fibromyalgia, and right lung mass presenting to the emergency department today with a right sided neck / jaw lump. Patient's physical exam was as noted in the physical exam portion of this note. Patient's blood work was unremarkable. Patient's CT soft tissue neck showed extensive abnormality including abnormal lymphadenopathy within the inferior neck and superior mediastinum, involving both parotid glands left greater than right. The palpable focus of concern appears to be related to a intraparotid mass, likely a lymph node. Low attenuation in the parotid masses/nodes highly suggests partial necrosis. These are felt to represent metastatic lymph nodes. Infiltrative appearing right superior mediastinal mass just posterior to the SVC measuring 2.9 x 3.9 x 4.7 cm. Lateral right upper lobe irregular spiculated consolidative mass measuring 2.6 x 3.2 x 2.6 cm, highly suspicious for index neoplasm. I explained my physical exam findings as well as all test results to the patient. I answered all questions asked by the patient. I offered to speak to our Hematology / Oncology team here at [facility] to ask for their guidance on next steps however, the patient declined and states that he would prefer to follow up with his sign language interpreter / oncologist within the [facility]. I stressed the importance of the patient taking his medication as directed (either prescribed or as the over the counter packaging recommends). I stressed the importance of the patient following up with his primary care provider and his sign language interpreter/oncologist. I stressed the importance of the patient returning to the emergency department immediately if his symptoms were to worsen or if he were to develop any difficult swallowing, dizziness, shortness of breath, difficulty breathing, chest pain, blurry vision, loss of vision, nausea, vomiting, abdominal pain, fever, chills, back pain, or any other complaints. Patient verbalized agreement and understanding with this treatment plan and discharge. Differential Diagnosis Differential Diagnoses: The differential diagnosis associated with the presentation includes Lung cancer metastases Lymphadenopathy Partoid mass Admission/Observation Consideration of admission/observation: Escalation of care including admission/observation considered Patient would have been admitted to the hospital had his work up had any findings where hospital admission was appropriate and his clinical presentation warranted hospital admission. Lab Data [facility] Lab Attestation statement: I reviewed the patient's lab results. My interpretation of these results are in the [facility] Rationale portion of this note. 12/30/24 09:12 12/30/24 09:12 Labs: Lab Results 12/30/24 Range/Units 09:12 WBC 9.0 (4.8-10.8) X10*3/uL RBC 4.67 (4.60-5.80) X10*6/uL Hgb 15.0 (14.0-18.0) g/dl Hct 45.1 (42.0-52.0) % MCV 96.6 (80.0-98.0) fL MCH 32.1 (27.0-33.0) pg MCHC 33.3 (31.0-36.0) g/dl RDW 11.9 (11.0-16.0) % Plt Count 206 (160-400) X10*3/uL MPV 8.7 L (9.4-12.4) fL Immature Gran % (Auto) 0.2 (0.0-0.4) % Neut % (Auto) 60.9 (45-73) % Lymph % (Auto) 26.8 (20-40) % Banks % (Auto) 10.0 (2-11) % Eos % (Auto) 1.7 (0-4) % Baso % (Auto) 0.4 (0-2) % Lymph # (Auto) 2.4 (1.2-4.9) X10*3/uL Banks # (Auto) 0.9 (0.1-1.2) X10*3/uL Eos # (Auto) 0.2 (0.0-0.4) X10*3/uL Baso # (Auto) 0.0 (0.0-0.2) X10*3/uL Abs Immat Gran (auto) 0.02 (0.00-0.03) X10*3/uL Absolute Neuts (auto) 5.5 (2.0-8.3) x10*3/uL Absolute Nucleated RBC 0.000 (0.0-0.012) X10*3/uL Nucleated RBC % (auto) 0.0 (0.0-0.2) /100WBC Sodium 141 (135-145) mmol/L Potassium 3.9 (3.3-5.1) mmol/L Chloride 106 (96-108) mmol/L Carbon Dioxide 27 (22-29) mmol/L Anion Gap 12 (12-20) BUN 13 (9-16) mg/dL Creatinine 0.78 (0.5-1.4) mg/dL Estim Creat Clear Calc 98.1 Estimated GFR > 60 Random Glucose 132 H (60-115) mg/dL Calcium 9.4 D (8.4-10.2) mg/dL Independent Interpretation I performed an independent interpretation of an: CT Scan Interpretation: My interpretation is in agreement with the radiologist's impression of this imaging study. Report Number: [id number]: Total DLP = 690.00 mGy-cm EXAMINATION: CT SOFT TISSUE NECK WITH CONTRAST CLINICAL INFORMATION: Right sided neck swelling, concern for abscess. COMPARISON: None available. TECHNIQUE: Following the intravenous administration of 60 mL of Omnipaque 350 intravenous contrast, helical imaging was performed in the axial plane with generation of coronal and sagittal reformatted images. This CT examination was performed using dose optimization techniques as appropriate, variously including the following: *Automated exposure control *Adjustment of mA and/or kV according to patient size (this includes techniques or standardized protocols for targeted exams where dose is matched to indication/reason for exam; i.e. extremities or head) *Use of iterative reconstruction technique FINDINGS: Lymph Nodes: There is abnormal lymphadenopathy present within the neck and superior mediastinum. Abnormal lymph nodes also suspected within both parotid glands. For example, a partially low attenuating irregular mass inferior left parotid gland measures 2.1 x 1.7 x 2.5 cm (series 3, image 50). A irregular partially low attenuating mass in the right superficial inferior parotid measures 1.6 x 1.3 x 1.3 cm (series 3, image 46). These are suspected to be lymph nodes. A level 5 lymph node on the right, just deep to the clavicle measures 1.2 cm in short axis (series 3, image 82). Abnormal for a lymph node just to the right of the thyroid gland measures 1.0 cm in short axis and has an elongated appearance extending into the mediastinum, measuring up to 1.1 cm (series 3, image 86). A right pretracheal lymph node measures 2.0 x 2.4 cm (series 3, image 107). An infiltrative appearing mass is present within the right superior mediastinum abutting the trachea, just deep to the azygos vein, with some degree of mass effect upon the SVC, measuring 2.9 x 3.9 x 4.7 cm (series 3, image 116). A right posterior paratracheal lymph node measures 1.3 cm short axis (series 3, image 103). Carotid Sheath Structures: -Mild to moderate atheromatous calcification of the carotid bulb bilaterally. No significant luminal stenosis. Patent internal jugular veins. Salivary Glands: -As above. Otherwise the parotids are fatty replaced. Submandibular glands and sublingual glands appear normal.. Tongue Base/Floor of Mouth: -Normal Mucosal Space: - Normal. Visceral Space: -Thyroid gland: Normal. -Normal. Retropharangeal Space: - Normal. Parapharyngeal Fat Planes: -Normal. Still Operator Batch Or Continuous Spaces: -Normal. Anterior Cervical Space: -Normal. Imaged Intracranial Contents: -No mass effect, edema, or abnormal enhancement. Cortical and dural venous sinuses are patent. The skull base is normal. Globes and Orbits: -Normal. Paranasal Sinuses/Mastoids/Tympanic Spaces: -Normally aerated bilaterally. Lung Apices and Superior Mediastinal Structures: -As above. -There is diffuse centrilobular and paraseptal emphysema. -Within the right upper lobe, abutting the pleura, there is an irregular spiculated appearing consolidative mass measuring 2.6 x 3.2 x 2.6 cm (series 3, image 116), highly suspicious. -No pneumothorax or pleural effusion. Bony Structures: -No suspicious bone lesions. No fractures. -Degenerative changes throughout the spine. -Normal TM joints. CT/CT soft tissue neck w IV con IMPRESSION: 1. Abnormal lymphadenopathy within the inferior neck and superior mediastinum, as well as involving both parotid glands left greater than right. The palpable focus of concern appears to be related to a intraparotid mass, likely a lymph node. Low attenuation in the parotid masses/nodes highly suggests partial necrosis. These are felt to represent metastatic lymph nodes. 2. Infiltrative appearing right superior mediastinal mass just posterior to the SVC measuring 2.9 x 3.9 x 4.7 cm. 3. Lateral right upper lobe irregular spiculated consolidative mass measuring 2.6 x 3.2 x 2.6 cm, highly suspicious for index neoplasm. Given these findings, CT of the chest recommended to further assess. 4. There is moderate to severe centrilobular and paraseptal emphysema within the imaged lung apices. Electronically signed by: Marco A Lazar MD 12/30/2024 01:37 PM EDT RP Dictated By: Marco A Lazar MD Signed By: Electronically signed by Marco A Lazar MD 12/30/24 [id number] Radiology Impression Discussion of test interpretation with radiology: I have reviewed the radiologist's reading. Chronic Conditions Patient?s care impacted by: Cancer (undiagnosed lung cancer) Critical Care Time Critical Care Time Critical Care Time: Yes Total Critical Care Time: 31 Attestation: I spent 31 minutes of Critical Care Time with this patient. This does not include time spent on separately reported billable procedures. 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 You must follow up with your sign language interpreter/oncologist through [facility] about this. Follow up with your primary care provider. Return to the emergency department immediately if your symptoms worsen or if you develop any difficultly swallowing, numbness, tingling, dizziness, shortness of breath, difficulty breathing, chest pain, blurry vision, loss of vision, nausea, vomiting, abdominal pain, fever, chills, back pain, or any other complaints. Please see the information below about our Patient Portal. If you are not yet enrolled in the [facility] Patient Portal, you will receive an enrollment email invitation following your visit to any [facility] care setting. You may also self-enroll in the Patient Portal by visiting our website: [email or web address] The following information is required to access the Patient Portal: - Your [facility] Medical Record Number - Your personal home email address (must match what is in your electronic medical record, Registration staff can assist with this) - Name - Date of Capabilities of the Patient Portal: - Message some providers - View upcoming appointments - Access your health summary, medical history, and visit history - View current conditions and allergies - View procedure and lab results - View your medications, including guidelines, side effects, and precautions - Complete pre-appointment questionnaires requested by your provider - Ready summary reports of your office visits and procedures To access the Patient Portal Mobile Julienne, follow these directions: - Search Yelp in the Julienne Store or [employer] Store - Download the Ju[employer]enne - Search for [facility] - Enter your login/password Prescriptions: No Action acetaminophen [Tylenol Extra Strength] 500 mg tablet 1,000 mg PO QID PRN (Reason: fever or pain) Qty: 14 0RF benazepril 10 mg tablet 10 mg PO BEDTIME Combivent Respimat 20-100 mcg/actuation mist 1 puff inhalation Q4H PRN (Reason: wheezing) nicotine 14 mg/24 hr Patch 24 Hour 14 mg transdermal DAILY Qty: 28 0RF Eliquis 5 mg tablet 5 mg PO BID Qty: 208 0RF Rx Instructions: take 10 mg (2 tabs) twice daily for 7 days then 5 mg )1 tab) twice daily after that quetiapine [Seroquel] 100 mg tablet 100 mg PO BEDTIME methadone 10 mg/5 mL solution 70 mg PO DAILY Referrals: Dima Beauchamp III, MD [Primary Care Provider] - Print Language: Barbadian
--- OUTSIDE RECORDS SUMMARY | 2024-12-30 11:26 | XMS_ITS | Clinical Summary ---
Author Organization 175 [facility] Address [address] [place] [address] Phone Care Team Providers Care Timber Harvester Operator Name Role Phone Dima Beauchamp MD Primary Care Provider [phone] Allergies No known active allergies Medications aspirin 81 mg EC tablet Take 1 tablet (81 mg total) by mouth 1 (one) time each day. 11/29/19 24 Active methadone (DOLOPHINE) 10 mg tablet Take 7 Tablets by mouth daily as needed. 08/17/20 22 Active valACYclovir (VALTREX) 500 mg tablet Take 1 tablet (500 mg total) by mouth 1 (one) time each day. 03/17/20 21 Active QUEtiapine (SEROquel) 100 mg tablet Take 1 tablet (100 mg total) by mouth at bedtime. 30 each 2 11/05/19 25 025 Active benazepriL (LOTENSIN) 10 mg tablet TAKE 1 TABLET(10 MG) BY MOUTH AT BEDTIME 30 tablet 5 12/07/19 25 Active benazepriL (LOTENSIN) 10 mg tablet Take 1 tablet (10 mg total) by mouth at bedtime. at bedtime. 30 tablet 12/04/19 25 025 Active furosemide (LASIX) 20 mg tablet Take 1 tablet (20 mg total) by mouth 1 (one) time each day. 90 tablet 2 12/04/19 25 Active ipratropium-al buteroL (Combivent Respimat) 20-100 mcg/actuation inhaler Inhale 1 puff by mouth every 4 (four) hours if needed for wheezing. 1 each 5 12/04/19 25 025 Active apixaban (ELIQUIS) 5 mg tablet Take 1 tablet (5 mg total) by mouth 2 (two) times a day. Active nicotine (NICODERM CQ) 21 mg/[address] 1 patch on the skin 1 (one) time each day at the same time. 30 each 1 12/04/19 25 025 Active ibuprofen (ADVIL,MOTRIN) 800 mg tablet Take 1 tablet (800 mg total) by mouth 3 (three) times a week. 11/29/19 24 025 Discontinued furosemide (LASIX) 20 mg tablet Take 1 tablet (20 mg total) by mouth 1 (one) time each day. 03/07/20 025 Discontinued(Re order) benazepriL (LOTENSIN) 10 mg tablet Take 1 tablet (10 mg total) by mouth at bedtime. at bedtime. 30 tablet 11/05/19 025 Discontinued(Re order) ipratropium-al buteroL (Combivent Respimat) 20-100 mcg/actuation inhaler Inhale 1 puff by mouth every 4 (four) hours if needed for wheezing. 1 each 5 11/05/19 25 025 Discontinued(Re order) Active Problems Problem Noted Date Diagnosed Date Fibromyalgia 06/25/2024 Opioid abuse ([facility] V24, [facility] V28) 06/25/20 24 Overview (06/25/2024): pt is on daily methadone Dysphagia 06/10/2020 Gastroesophageal reflux disease 06/10/2020 Mixed hyperlipidemia 01/10/2019 Severe obesity (BMI 35.0-39. 9) with comorbidity ([facility] V24, [facility] V28) 09/08/2014 Chronic bronchitis with emph ysema ([facility] V24, [facility] V28) 02/18/2014 HSV infection 07/03/2013 Cytopenia 02/10/2012 Cirrhosis ([facility] V24, [facility] V28) 10/06/2011 Chronic hepatitis C (CMS/HCC V24, CMS/HCC V28) 1 Overview (06/25/2024): Started Tx for Hepatitis C 12/16/11. Peg-Intron redipen, Ribavirin & Incivek. Tx continued through week 24. Finished Tx 06/01/12. Repeat labs on 12/26/2012 indicate a sustained viral response. The patient is felt to be cured of his hepatitis C infection. SVR Achevied Depression 03/17/2011 Encounters Date Type Department Care Team Description 12/11/2024 Telephone Pulmonolgy - [place] [facility] [address] [place] [phone] RESULTS_WT FINDINGS 12/04/2024 Telephone Pulmonol - [place] 175 [facility] [address] [place] [phone] Anshul Magallanes MD FYI- Lung screening patient 12/04/2024 Telephone Lung Screening Program - [place] [address] [facility] [address] [place] [phone] Sintia Meeks [place] Appointment (Declines) 12/03/2024 10:30 AM EDT Office Visit Adult Medicine [address] [phone] Dima Beauchamp MD Mass of right lung (Primary Dx); Primary hypertension; Chronic bronchitis with emphysema (CMS/HCC V24, CMS/HCC V28); Acute deep vein thrombosis (DVT) of other specified vein of left lower extremity (CMS/HCC V24, CMS/HCC V28); Lower extremity edema; Tobacco abuse 11/27/2024 Billing Patient Not Present Adult Medicine [address] [phone] Dima Beauchamp MD 11/21/2024 Telephone Adult Medicine [address] [phone] Dima Beauchamp MD faxed order ([facility] order [id number]) 11/21/2024 Telephone Adult Medicine South [address] [phone] Dima Beauchamp MD VNA Order (Missed Visit 11/03/24) 11/08/[address] [place] [address] Anshul Magallanes MD Follow-up 11/06/2024 Nurse Triage Adult Medicine [address] [phone] Dima Beauchamp MD triage (Please call VNA nurse ) 11/05/2024 Telephone Adult Medicine [address] [phone] Eduar Stout LPN vna 11/04/2024 Telephone Adult Medicine [address] [phone] Dima Beauchamp MD PT1 from Last 3 Months Immunizations Name Administration [...] COMMENT: internal fixation 2005 ESOPHAGOGASTRODUODENOSCOPY 10/06/11 PROCEDURE: [place] ESOPHAGOGASTRODUODENOSCOPY TRANSORAL DIAGNOSTIC; COMMENT: normal; without varices; repeat in 2 yrs COLONOSCOPY 10/06/11 PROCEDURE: HISTORICAL COLONOSCOPY; COMMENT: adenoma; repeat in 3 years Medical History Medical History Date Comments Anxiety DX:Anxiety; COMM ENT: follows with psych [facility] Opioid abuse ([facility] V24, [facility] V28) DX:Opioid abuse (HCC); COMMENT: pt is on daily methadone Fibromyalgia DX:Fibromyalgia Chronic bronchitis with emph ysema ([facility] V24, [facility] V28) 02/18/2014 DX:Chronic bronchitis with emphysema (HCC) Gastroesophageal reflux disease 06/10/2020 DX:Gastroesophageal reflux disease [...] Every Day Smokeless Tobacco: Former Quit: 12/17/2010 Tobacco Cessation:Ready to Q uit: Not Asked; Counseling Given: Not Answered Comments:Smoking 5 cigs daily Alcohol Use Standard Drinks/Week Comments No 0 (1 standard drink = 0.6 oz pur e alcohol) Sex and Gender Information Value Date Recorded Sex Assigned at Not on file Legal Sex Male 5:53 AM EST Gender Identity Not on file Sexual Orientation Not on file Obstetrics History Last Filed Vital Signs Vital Sign Reading Time Taken Comments Blood Pressure 185/86 12/03/2024 10:31 AM EDT di gitial Pulse 92 12/03/2024 10:31 AM EDT Temperature 36.9 ??C (98.4 ??F) 12/03/2024 10:31 AM E DT Respiratory Rate 19 12/03/2024 10:31 AM EDT Oxygen Saturation 91% 09/24/2024 11:01 AM EST Inhaled Oxygen Concentration - - Weight 110 kg (242 lb) 12/03/2024 10:31 AM EDT Height 162.6 cm (5' 4.02 ) 12/03/2024 10:31 AM E DT Body Mass Index 41.52 12/03/2024 10:31 AM EDT Plan of Treatment Upcoming Encounters Date Type Department Care Team (Late st Contact Info) Description 01/29/2025 1:00 PM EDT Office Visit Pulmonolgy - [place] [address] [place] [phone] Anshul Magallanes MD 175 [facility] [address] [place] [address] Health Maintenance Due Date Last Done Comments Hepatitis A Vaccines (2 of 2 - Risk 2-dose series) 01/13/2012 07/14/2011 Hepatitis B Vaccines (1 of 3 - Risk 3-dose series) 2013 RSV Immunization Adult Patients (1 - Risk 60-74 years 1-dose series) 2013 Zoster Vaccines (3 of 3) 03/30/2019 019, 07/03/2014 Abdominal Aortic Aneurysm (AAA) Screen 08/21/2022 Colorectal Cancer Screening: Colonoscopy 08/21/2022 Falls Risk Assessment 08/21/2022 Social Influencers of Health Screening 08/21/2022 Medicare Annual Wellness Visit 08/17/2023 08/17/2022 COVID-19 Vaccine (1 - 2023-2 5 season) 2024 Hypertension/CHF/CAD Annual BMP Blood Test 01/29/2025 01/30/2024, 01/30/2024 Depression Screening 03/07/2025 03/07/2024 Influenza Vaccine (Season Ended) 2025 07/03/2013, 07/14/2011 DTaP,Tdap,and Td Vaccines (2 - Td or [...] age to complete this topic Meningococcal B Vaccine Aged Out No l onger eligible based on patient's age to complete this topic RSV Immunization Patients Under 20 months Aged Out No longer eligible b ased on patient's age to complete this topic Varicella Vaccines Aged Out No longer eligible based on patient's age to complete this topic Procedures Procedure Name Priority Date/Time Associated Diagnosis Comments EXTERNAL CT REPORT 10/30/2024 DEPRESSION SCREENING Routine 03/07/2024 ANNUAL BMP BLOOD TEST Routine 01/30/2024 LIPID PANEL Routine 01/30/2024 HEPATITIS C SCREENING Routine 01/17/2019 from Last 3 Months or Most Recently Relevant to Health Maintenance Results * External CT Report (10/30/2024) Anatomical Region Laterality Modality Computed Tomogra [facility] Onbase IMG CT PROCEDURES Final Result * Depression Screening (03/07/2024) [facility] Depression Screening abstracted Result [facility] Provider HEALTH MAINTENANCE Final Result * Annual BMP Blood Test (01/30/2024) [facility] Annual BMP Blood Test abstracted Result [facility] HEALTH MAINTENANCE Final Result * (ABNORMAL) Lipid panel (01/30/2024) [facility] LDL/HDL Ratio 3 0 - 4 Triglycerides 80 0 - 150 mg/dL Cholesterol 184 0 - 200 mg/dL HDL 60 >=40 mg/dL LDL Cholesterol 108(A) 0 - 100 mg/dL Blood Venous blood specimen / Unknown Result [facility] Provider LAB BLOOD ORDERABLES Nena l Result * Hepatitis C Screening (01/17/2019) [facility] Hepatitis C Screening abstracted [facility] Provider HEALTH MAINTENANCE Final Result from Last 3 Months or Most Recently Relevant to Health Maintenance Insurance MEDICAID - [place] [employer] MEDICARE Care Teams Timber Harvester Operator Relationship Specialty Start Date End Date Dima Beauchamp MD [address] [place] [address] [id number] PCP - General Internal Medicine 07/23/24
--- OUTSIDE RECORDS SUMMARY | 2024-12-30 11:26 | XMS_ITS | Encounter Summary ---
Author Organization [facility] Address [address] [place] [address] Care Team Providers Care Peoplesoft Hcm Developer Name Role Phone Dima Beauchamp MD Primary Care Provider [phone] Reason for Visit * Reason Onset Date Comments FYI- Lung screening patient 12/04/2024 Encounter Details Date Type Department Care Team (Late st Contact Info) Description 12/04/2024 Telephone Pulmonolgy - [place] 175 [facility] [address] [place] [address] Anshul Magallanes MD 175 [facility] [address] [place] [address] FYI- Lung screening patient Social History Tobacco Use Types Packs/Day Years [...] as of this encounter Progress Notes * Stephie Ross MA - 12/04/2024 9:[address] Magallanes, please read forwarded message below. Denise from Lung screening program has return the patient back to our office, As patient has not been compliance at all . Patient had been refer back in 2022 until today date patient has not even showed up for any apt, patient has continue numerous times to reschedule apt. Lung screening dept has requested to not refer patient to them no more as they have been trying to treat patient for more thana year. If any further questions please reach out to [phone] * Michael Larry - 12/04/2024 9:08 AM EDT Denise from Lung screening program has return the patient back to our office, As patient has not been compliance at all . Patient had been refer back in 2022 until today date patient has not even showed up for any apt, patient has continue numerous times to reschedule apt. Lung screening dept has requested to not refer patient to them no more as they have been trying to treat patient for more thana year. If any further questions please reach out to [phone] documented in this encounter Plan of Treatment Upcoming Encounters Date Type Department Care Team (Late st Contact Info) Description 01/29/2025 1:00 PM EDT Office Visit Pulmonolgy - [place] [address] [facility] [address] [place] [phone] Anshul Magallanes MD [address] [facility] [address] [facility] [address] [place] [address] documented as of this encounter Visit Diagnoses Not on filedocumented in this encounter Care Teams Peoplesoft Hcm Developer Relationship Specialty Start Date End Date Dima Beauchamp MD [address] [place] [id number] PCP - General Internal Medicine 07/23/24 documented as of this encounter
--- OUTSIDE RECORDS SUMMARY | 2024-12-30 11:26 | XMS_ITS | Encounter Summary ---
Author Organization [facility] Address [address] [place] [address] Care Team Providers Care Licsw Name Role Phone Dima Beauchamp MD Primary Care Provider [phone] Reason for Visit * Reason Onset Date Comments CT RESULTS_WT FINDINGS 12/11/2024 Encounter Details Date Type Department Care Team ([facility] st Contact Info) Description [facility] [address] [place] [address] Anshul Magallanes MD 175 [facility] 200 [place] [address] CT RESULTS_WT FINDINGS Social History Tobacco Use Types Packs/Day Years [...] as of this encounter Progress Notes * Michael Larry - 12/11/2024 3:49 PM EDT Susy from [facility] called our office to request provider to see the results from 10/30/24 CT REPORT show findings that are concerning. Please go over CT SCAN on base Susy - [phone] Please re vice results on on base 10/30/24 documented in this encounter Plan of Treatment Upcoming Encounters Date Type Department Care Team (Late st Contact Info) Description 01/29/2025 1:00 PM EDT Office Visit Pulmonolgy - [place] [address] [facility] [address] [place] [address] Anshul Magallanes MD 175 [facility] [address] [place] [address] documented as of this encounter Visit Diagnoses Not on filedocumented in this encounter Care Teams Licsw Relationship Specialty Start Date End Date Dima Beauchamp MD [address] [place] [phone] PCP - General Internal Medicine 07/23/24 documented as of this encounter
--- OUTSIDE RECORDS SUMMARY | 2024-12-30 11:26 | XMS_ITS | Encounter Summary ---
Author Organization [facility] Address [address] [place] [address] Care Team Providers Care Editor Name Role Phone Dima Beauchamp MD Primary Care Provider [phone] Encounter Details Date Type Department Care Team (Late Contact Info) Description 11/27/2024 Billing Patient Not Present Adult Medicine [address] [phone] Dima Beauchamp MD [address] [place] [address] Social History Tobacco Use Types Packs/Day Years [...] on file documented as of this encounter Plan of Treatment Upcoming Encounters Date Type Department Care Team (Late Contact Info) Description 01/29/2025 1:00 PM EDT Office Visit [facility] [address] [phone] Anshul Magallanes MD [address] [phone] documented as of this encounter Visit Diagnoses Not on filedocumented in this encounter Care Teams Editor Relationship Specialty Start Date End Date Dima Beauchamp MD [address] [place] [phone] PCP - General Internal Medicine 07/23/24 documented as of this encounter
--- OUTSIDE RECORDS SUMMARY | 2024-12-30 11:26 | XMS_ITS | Encounter Summary ---
Author Organization [facility] Address [address] [place] [address] Care Team Providers Care Registered Pharmacy Technician Name Role Phone Dima Beauchamp MD Primary Care Provider [phone] Reason for Visit * Reason Onset Date Comments triage 11/06/2024 Please call VNA nurse Encounter Details Date Type Department Care Team (Late st Contact Info) Description 11/06/2024 Nurse Triage Adult Medicine [address] [phone] Dima Beauchamp MD [address] [place] [phone] triage (Please call VNA nurse ) Social [...] 1:00 PM EDT Office Visit Pulmonolgy - [place] [address] [facility] [address] [place] [phone] Anshul Magallanes MD [address] [facility] [address] [place] [address] documented as of this encounter Visit Diagnoses Not on filedocumented in this encounter Care Teams Registered Pharmacy Technician Relationship Specialty Start Date End Date Dima Beauchamp MD [address] [place] [phone] PCP - General Internal Medicine 07/23/24 documented as of this encounter
[2024-12-30 12:09] VITALS: BP 140/75; PULSE 84; RESP 15; TEMP 36.7; O2SAT 97
[2024-12-30] MEDS: iohexoL 350 MG/ML 100 ML INFUS..BTL IV (12:25)
[2024-12-30 14:33] VITALS: BP 140/75; PULSE 84; RESP 15; TEMP 36.7; O2SAT 97
== END 2024-12-30 14:35 | disposition home or self-care (01) ==
PROVIDERS: Emergency Provider Emergency Medicine; PCP Internal Medicine
DX: M54.2 Cervicalgia (principal); R59.1 Generalized enlarged lymph nodes; Z86.718 Personal history of other venous thrombosis and embolism; Z79.899 Other long term (current) drug therapy; F17.210 Nicotine dependence, cigarettes, uncomplicated
CPT/HCPCS: 36415; 70491; 80048; 85025; 99284; Q9967

== ENCOUNTER → 2024-12-30 10:52 | Outpatient (BNV) | payer MEDICARE, MEDICAID, SELFPAY | PROVIDERS: Emergency Provider Emergency Medicine; PCP Internal Medicine; Visit Provider Radiology Diagnostic Radiology | DX: J43.8 Other emphysema (principal); R22.1 Localized swelling, mass and lump, neck | CPT/HCPCS: 70491 ==